=== PATIENT | male | born 1935 | race Caucasian/White ===

== ENCOUNTER 2017-02-05 09:48 | Inpatient (IN) | payer OTHER ==
[2017-02-05 10:04] VITALS: BMI 22.9
--- NOTE | 2017-02-05 11:00 | PDOC ---
History of Present Illness - General Chief Complaint: Injury Stated Complaint: FALL Time Seen by Provider: 02/05/17 10:09 - History of Present Illness Initial Comments: 02/05/17 11:19 CHIEF COMPLAINT: fall HISTORY OF PRESENT ILLNESS: 81-year-old male with hx of recurrent UTIs presents to ED s/p fall. Patient was seen in this ER yesterday for fall and discharged s /p Tdap administration and lac repair. Patient states that he was at home in his backyard and lost balance and fell against a brick wall and scraped his left arm. Patient denies any pain at this time, denies any change in vision, difficulty speaking or walking. Patient has no complaints. No recent travel or sick contacts. PAST MEDICAL HISTORY: Denies past medical history FAMILY HISTORY: Denies SOCIAL HISTORY: Lives at home alone. Current smoker, 1 pack daily. Denies alcohol, illicit drug use. SURGICAL HISTORY: Denies ALLERGIES: No known drug allergies REVIEW OF SYSTEMS General/Constitutional: Denies fever or chills. Denies weakness, weight change. HEENT: Denies change in vision. Denies ear pain or discharge. Denies sore throat. Cardiovascular: Denies chest pain or shortness of breath. Respiratory: Denies cough, wheezing, or hemoptysis. Gastrointestinal: Denies nausea, vomiting, diarrhea or constipation. Denies rectal bleeding. Genitourinary: Denies dysuria, frequency, or change in urination. Musculoskeletal: "I have cuts on my hands and arms." Denies joint or muscle swelling or pain. Denies neck or back pain. Skin and breasts: Denies rash or easy bruising. Neurologic: Denies headache, vertigo, loss of consciousness, or loss of sensation. PHYSICAL EXAM General Appearance: Well-appearing, appropriately dressed. No apparent distress. HEENT: EOMI, PERRLA, normal ENT inspection, normal voice, TMs normal, pharynx normal. No conjunctival pallor. No photophobia, scleral icterus. Neck: No midline tenderness to cervical spine. Supple. Trachea midline. No tenderness, rigidity, carotid bruit, stridor, lymphadenopathy, or thyromegaly. Respiratory/Chest: Lungs CTAB. Cardiovascular: RRR. S1, S2. Vascular Pulses: Dorsalis-Pedis (R): 2+, Dorsalis-Pedis (L): 2+ Gastrointestinal/Abdominal: Normal bowel sounds. Abdomen soft, non-distended. No tenderness or rebound tenderness. No organomegaly, pulsatile mass, guarding , hernia, hepatomegaly, splenomegaly. Lymphatic: No adenopathy, tenderness. Musculoskeletal/Extremities: Superficial skin avulsion and ecchymosis to L lateral elbow. Repaired lac to L 2nd digit, macerated lac to R 5th digit, covered with bandage. No midline tenderness to thoracic or lumbar spine. FROM of all extremities, normal capillary refill. No tenderness to extremities, pedal edema, swelling, erythema or deformity. Integumentary: Appropriate color, dry, warm. No cyanosis, erythema, jaundice or rash Neurologic: body hanger II-XII intact. Fully oriented, alert. Appropriate mood/affect. Motor strength 5/5. No appreciable EOM palsy, facial droop or sensory deficit. Past History - Past Medical History Allergies/Adverse Reactions: Allergies Allergy/AdvReac Type Severity Reaction Status Date / Time No Known Drug Allergies Allergy Verified 02/04/17 18:34 Home Medications: Ambulatory Orders Alprazolam [Xanax] 1 mg PO HS 02/05/15 Aspirin [Aspirin EC] 81 mg PO DAILY 02/05/15 Metoprolol Succinate [Toprol XL -] 100 mg PO DAILY 02/05/15 Ramipril 2.5 mg PO BID 02/05/15 Simvastatin 10 mg PO HS 02/05/15 Duloxetine HCl 20 mg PO DAILY 06/17/16 Anemia: No Asthma: No Cancer: No Cardiac Disorders: No CVA: No COPD: No CHF: No Dementia: No Diabetes: No GI Disorders: No Disorders: No HTN: Yes Hypercholesterolemia: Yes Liver Disease: No Suicide Attempt (Hx): No Seizures: No Thyroid Disease: No - Surgical History Abdominal Surgery: No Appendectomy: No Cardiac Surgery: No Cholecystectomy: No Lung Surgery: No Neurologic Surgery: No Orthopedic Surgery: No - Psycho/Social/Smoking Cessation Hx Anxiety: No Suicidal Ideation: No Smoking History: Current every day smoker Have you smoked in the past 12 months: Yes Number of Cigarettes Smoked Daily: 20 Information on smoking cessation initiated: No 'Breaking Loose' booklet given: 02/20/15 Hx Alcohol Use: No Drug/Substance Use Hx: No Substance Use Type: None Hx Substance Use Treatment: No *Physical Exam - Vital Signs Last Vital Signs Temp Pulse Resp BP Pulse Ox 97.9 F 64 20 146/91 100 02/05/17 10:01 02/05/17 10:01 02/05/17 10:01 02/05/17 10:01 02/05/17 10:01 ED Treatment Course - LABORATORY CBC & Chemistry Diagram: 02/05/17 11:15 02/05/17 11:15 - RADIOLOGY Radiology Studies Ordered: Category Date Time Status ELBOW-LEFT [RAD] Stat Radiology 02/05/17 10:38 Ordered FOREARM- LEFT [RAD] Stat Radiology 02/05/17 10:38 Ordered Medical Decision Making - Medical Decision Making 02/05/17 12:26 81-year-old male with hx of recurrent UTIs presents to ED s/p fall. -CBC, CMP, PT/INR -UA, Ucx -EKG, CXR Labs: UA: WBC 249 Trop 0.06 Creatinine 2.1 -Levaquin IVPB Per chart history, patient has hx of MDR UTI, susceptible to amikacin and Zosyn. Levaquin stopped. -Zosyn IVPB EKG - multifocal atrial rhythm Head CT: No evidence of acute intracranial hemorrhage, edema, midline shift, mass effect, or skull fracture. No CT evidence of acute territorial infarction. Cerebral atrophy with supratentorial chronic white matter microangiopathic ischemic changes. Dilated temporal horns associated with loss of medial temporal lobes, hippocampus. Clinically correlate history of Alzheimer's dementia. 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 02/05/17 13:07 Discussed case with PCP Kasie, who agrees to inpatient admission but admits to hospitalist. Patient has no clinical hx of Alzheimers. Per PCP will also consult cards, urology and neurology. *DC/Admit/Observation/Transfer Diagnosis at time of Disposition: Urinary tract infection Qualifiers: Urinary tract infection type: site unspecified Hematuria presence: without hematuria Qualified Code(s): N39.0 - Urinary tract infection, site not specified - Discharge Dispostion Admit: Yes - Referrals Referrals: Ranjit Ferro [Primary Care Provider] -
[2017-02-05 11:20] LABS: BASOPHIL 0.8 % (0-2.0); EOSINOPHIL 0.4 % (0-4.5); MCH 30.4 pg (25.7-33.7); MCHC 32.5 g/dl (32.0-35.9); MEAN CELL VOLUME 93.3 fl (80-96); MEAN PLT VOLUME 8.8 fl (7.5-11.1); NEUTROPHILS 66.5 % (42.8-82.8); PLATELET COUNT 171 K/MM3 (134-434); RDW 15.2 % (11.9-15.9); WHITE BLOOD COUNT 6.8 K/mm3 (4.0-10.0)
[2017-02-05 11:35] LABS: INR 0.97 (0.82-1.09); PROTHROMBIN TIME (PATIENT) 10.7 SEC (9.98-11.88)
[2017-02-05 11:43] LABS: URINE APPEARANCE SLCLOUDY; URINE BILIRUBIN NEGATIVE (NEGATIVE); URINE COLOR LTYELLOW; URINE GLUCOSE (UA) NEGATIVE (NEGATIVE); URINE KETONE NEGATIVE (NEGATIVE); URINE NITRITE NEGATIVE (NEGATIVE); URINE UROBILINOGEN NEGATIVE E.U./dl (0.2-1.0)
[2017-02-05 11:56] LABS: ALBUMIN 3.5 g/dl (3.4-5.0); BILIRUBIN,TOTAL 1.1 mg/dL (0.2-1.0); CALCIUM 8.7 mg/dL (8.5-10.1); COCKROFT - GAULT 31.14; CREATININE 2.1 mg/dL (0.7-1.3); TOT PROT 6.7 g/dl (6.4-8.2)
[2017-02-05 11:57] LABS: TROPONIN I 0.06 ng/ml (0.00-0.05)
[2017-02-05 12:02] LABS: URINE BLOOD 2+ (NEGATIVE); URINE LEUK ESTERASE 3+ (NEGATIVE); URINE PROTEIN 1+ (NEGATIVE)
[2017-02-05 12:06] LABS: URINE HYALINE CAST 1 /lpf; URINE RBC 16 /hpf (0-3); URINE WBC 249 /hpf (3-5)
[2017-02-05] MEDS ORDERED: LEVOFLOXACIN 500 MG IVPB 100 ML IVPB ONE ×2 (12:25→12:28)
[2017-02-05] MEDS ORDERED: PIPERACILLIN/TAZOB 3.375 GM/50 ML PRE-DOCKED IVPB ONE (12:51)
[2017-02-05] MEDS ORDERED: PIPERACILLIN/TAZOB 3.375 GM 50 ML IVPB ONE (13:18)
--- NOTE | 2017-02-05 15:02 | HP ---
CHIEF COMPLAINT:Fall PCP:Kasie HISTORY OF PRESENT ILLNESS: 81m WITH pmh OF htn hld ckd CAD Cr 2.1 at baseline presents to the hospital s/p fall. Patient was seen yesterday s/p fall after he tripped and fell had a laceration to the left arm was sutured and he was discharged. Today he comes back s/p fall again. patient states sometimes his legs give out and that is what happened this time. He also has a history of recurrent UTIs and last UCx showed pseudomonas which was resistant to everything except Zosyn and amikacin. Patient admitted for IV Abx and further work up of an abnormal EKG which is changed from EKG in 2016. He denies nausea vomiting fevers chills chest pain shortness of breath hematuria or dysuria. Patient was interviewed at bedside with his daughter present. She states he is currently being worked up by Dr. Mcleod of urology for some kind of bladder issue. Patient ambulates with a cane at home but does not ambulate much. ER course was notable for: (1)IV ABx (2)Head CT (3)EKG Recent Travel:Denies PAST MEDICAL HISTORY:as above anxiety/depression Social History: Smoking:Denies Alcohol:Denies Drugs: Denies Allergies No Known Drug Allergies Allergy (Verified 02/04/17 18:34) HOME MEDICATIONS: Home Medications Medication Instructions Recorded Alprazolam [Xanax] 1 mg PO HS 02/05/15 Aspirin [Aspirin EC] 81 mg PO DAILY 02/05/15 Metoprolol Succinate [Toprol XL -] 100 mg PO DAILY 02/05/15 Ramipril 2.5 mg PO BID 02/05/15 Simvastatin 10 mg PO HS 02/05/15 Duloxetine HCl 20 mg PO DAILY 06/17/16 REVIEW OF SYSTEMS CONSTITUTIONAL: Absent: fever, chills, diaphoresis, generalized weakness, malaise, loss of appetite, weight change HEENT: Absent: rhinorrhea, nasal congestion, throat pain, throat swelling, difficulty swallowing, mouth swelling, ear pain, eye pain, visual changes CARDIOVASCULAR: Absent: chest pain, syncope, palpitations, irregular heart rate, lightheadedness , peripheral edema RESPIRATORY: Absent: cough, shortness of breath, dyspnea with exertion, orthopnea, wheezing, stridor, hemoptysis GASTROINTESTINAL: Absent: abdominal pain, abdominal distension, nausea, vomiting, diarrhea, constipation, melena, hematochezia GENITOURINARY: Absent: dysuria, frequency, urgency, hesitancy, hematuria, flank pain, genital pain MUSCULOSKELETAL: Absent: myalgia, arthralgia, joint swelling, back pain, neck pain SKIN: Absent: rash, itching, pallor HEMATOLOGIC/IMMUNOLOGIC: Absent: easy bleeding, easy bruising, lymphadenopathy, frequent infections ENDOCRINE: Absent: unexplained weight gain, unexplained weight loss, heat intolerance, cold intolerance NEUROLOGIC: Absent: headache, focal weakness or paresthesias, dizziness, unsteady gait, seizure, mental status changes, bladder or bowel incontinence Present: History of multiple falls and muscle weakness at times. PSYCHIATRIC: Absent: depression, suicidal or homicidal ideation, hallucinations. Present: Anxiety PHYSICAL EXAMINATION Vital Signs - 24 hr 02/05/17 10:01 Temperature 97.9 F Pulse Rate 64 Respiratory 20 Rate Blood Pressure 146/91 O2 Sat by Pulse 100 Oximetry (%) GENERAL: Awake, alert, and fully oriented, in no acute distress. HEAD: Normal with no signs of trauma. EYES: Pupils equal, round and reactive to light, extraocular movements intact, sclera anicteric EARS, NOSE, THROAT: Moist mucous membranes. NECK: Normal range of motion, supple without JVD LUNGS: Breath sounds equal, clear to auscultation bilaterally. No wheezes, and no crackles. No accessory muscle use. HEART: Regular rate and rhythm, normal S1 and S2 without murmur ABDOMEN: Soft, nontender, not distended, normoactive bowel sounds, no guarding, no rebound MUSCULOSKELETAL: No CVA tenderness. UPPER EXTREMITIES: warm, well-perfused. No peripheral edema. Left arm wrapped s /p fall with laceration which is sutured LOWER EXTREMITIES: warm, well-perfused. No calf tenderness. No peripheral edema. NEUROLOGICAL: Cranial nerves II-XII intact. Normal speech. PSYCHIATRIC: Cooperative. Good eye contact. Appropriate mood and affect. SKIN: Warm, dry, normal turgor Laboratory Results - last 24 hr 02/05/17 02/05/17 02/05/17 11:15 11:15 11:15 WBC 6.8 D RBC 3.94 L Hgb 12.0 Hct 36.8 MCV 93.3 MCHC 32.5 RDW 15.2 Plt Count 171 MPV 8.8 Neutrophils % 66.5 Lymphocytes % 25.9 D Monocytes % 6.4 Eosinophils % 0.4 Basophils % 0.8 INR 0.97 Sodium 139 Potassium 4.6 Chloride 107 Carbon Dioxide 22 Anion Gap 10 BUN 26 H D Creatinine 2.1 H Creat Clearance w eGFR 30.39 Random Glucose 112 H D Calcium 8.7 Total Bilirubin 1.1 H D AST 24 D ALT 15 Alkaline Phosphatase 120 H D Creatine Kinase 334 H Creatine Kinase Index 0.5 CK-MB (CK-2) 1.720 CK-MB (CK-2) Rel Index Troponin I 0.06 H Total Protein 6.7 Albumin 3.5 Urine Color Urine Appearance Urine pH Ur Specific [place] Urine Protein Urine Glucose (UA) Urine Ketones Urine Blood Urine Nitrite Urine Bilirubin Urine Urobilinogen Ur Leukocyte Esterase Urine RBC Urine WBC Ur Epithelial Cells Hyaline Casts 02/05/17 02/05/17 11:15 11:30 WBC RBC Hgb Hct MCV MCHC RDW Plt Count MPV Neutrophils % Lymphocytes % Monocytes % Eosinophils % Basophils % INR Sodium Potassium Chloride Carbon Dioxide Anion Gap BUN Creatinine Creat Clearance w eGFR Random Glucose Calcium Total Bilirubin AST ALT Alkaline Phosphatase Creatine Kinase Creatine Kinase Index CK-MB (CK-2) CK-MB (CK-2) Rel Index Cancelled Troponin I Total Protein Albumin Urine Color Ltyellow Urine Appearance Slcloudy Urine pH 6.0 Ur Specific [place] 1.013 Urine Protein 1+ H Urine Glucose (UA) Negative Urine Ketones Negative Urine Blood 2+ H Urine Nitrite Negative Urine Bilirubin Negative Urine Urobilinogen Negative Ur Leukocyte Esterase 3+ H Urine RBC 16 Urine WBC 249 Ur Epithelial Cells Rare Hyaline Casts 1 EKG: sinus arrhythmia vs atrial arrhythmia changes from EKG in 06/2016 CT head: no acute pathology. age appropriate XR elbow and forearm. possible intrarticular body otherwise WNL ASSESSMENT/PLAN: 81M presents to the hospital s/p recurrent falls found to have a slightly elevated troponin and UTI. 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 patient was eating a [employer] bar check HbA1C CKD:no issues Cr 2.1 at baseline renally dose all meds Depression/anxiety: continue duloxetine hold xanax as patient has been having multiple falls FEN: no IVF No electrolyte issues low sodium diet PPx: SCDs/HSQ no GI PPx indicated PT consult case discussed with Dr. zaidi Visit type - Emergency Visit Emergency Visit: Yes Care time: The patient presented to the Emergency Department on the above date and was hospitalized for further evaluation of their emergent condition. - New Patient This patient is new to me today: Yes Date on this admission: 02/05/17 - Critical Care Critical Care patient: No
--- NOTE | 2017-02-05 15:26 | PN ---
Teaching Attending Note Name of Resident: Geoff Valenzuela ATTENDING PHYSICIAN STATEMENT I saw and evaluated the patient. I reviewed the resident's note and discussed the case with the resident. I agree with the resident's findings and plan as documented. Patient states that he tripped and fell and also his legs gave up . Also stated that he feels very sad that his 4 years ago and has not been the same ever since then. Vital Signs Temperature 98.2 F 02/05/17 14:51 Pulse Rate 72 02/05/17 14:51 Respiratory Rate 16 02/05/17 14:51 Blood Pressure 137/66 02/05/17 14:51 O2 Sat by Pulse Oximetry (%) 96 02/05/17 14:51 GENERAL: Awake, alert, and fully oriented, in no acute distress. HEAD: Normal with no signs of trauma. EYES: Pupils equal, round and reactive to light, extraocular movements intact, sclera anicteric EARS, NOSE, THROAT: Moist mucous membranes. NECK: Normal range of motion, supple without JVD LUNGS: Breath sounds equal, clear to auscultation bilaterally. No wheezes, and no crackles. No accessory muscle use. HEART: Regular rate and rhythm, normal S1 and S2 without murmur ABDOMEN: Soft, nontender, not distended, normoactive bowel sounds, no guarding, no rebound MUSCULOSKELETAL: No CVA tenderness. EXTREMITIES: warm, well-perfused. No peripheral edema. Left arm wrapped s/p fall with laceration which is sutured NEUROLOGICAL: Cranial nerves II-XII intact. Normal speech. PSYCHIATRIC: Cooperative. Good eye contact. Appropriate mood and affect. SKIN: Warm, dry, normal turgor CBCD WBC 6.8 K/mm3 (4.0-10.0) D 02/05/17 11:15 RBC 3.94 M/mm3 (4.00-5.60) L 02/05/17 11:15 Hgb 12.0 GM/dL (11.7-16.9) 02/05/17 11:15 Hct 36.8 % (35.4-49) 02/05/17 11:15 MCV 93.3 fl (80-96) 02/05/17 11:15 MCHC 32.5 g/dl (32.0-35.9) 02/05/17 11:15 RDW 15.2 % (11.9-15.9) 02/05/17 11:15 Plt Count 171 K/MM3 (134-434) 02/05/17 11:15 MPV 8.8 fl (7.5-11.1) 02/05/17 11:15 CMP Sodium 139 mmol/L (136-145) 02/05/17 11:15 Potassium 4.6 mmol/L (3.5-5.1) 02/05/17 11:15 Chloride 107 mmol/L (98-107) 02/05/17 11:15 Carbon Dioxide 22 mmol/L (21-32) 02/05/17 11:15 Anion Gap 10 (8-16) 02/05/17 11:15 BUN 26 mg/dL (7-18) H D 02/05/17 11:15 Creatinine 2.1 mg/dL (0.7-1.3) H 02/05/17 11:15 Creat Clearance w eGFR 30.39 (>60) 02/05/17 11:15 Random Glucose 112 mg/dL (74-106) H D 02/05/17 11:15 Calcium 8.7 mg/dL (8.5-10.1) 02/05/17 11:15 Total Bilirubin 1.1 mg/dL (0.2-1.0) H D 02/05/17 11:15 AST 24 U/L (15-37) D 02/05/17 11:15 ALT 15 U/L (12-78) 02/05/17 11:15 Alkaline Phosphatase 120 U/L (45-117) H D 02/05/17 11:15 Total Protein 6.7 g/dl (6.4-8.2) 02/05/17 11:15 Albumin 3.5 g/dl (3.4-5.0) 02/05/17 11:15 CARDIAC ENZYMES Creatine Kinase 334 IU/L (39-308) H 02/05/17 11:15 Troponin I 0.06 ng/ml (0.00-0.05) H 02/05/17 11:15 Current Medications Generic Name Dose Route Start Last Admin Trade Name Freq PRN Reason Stop Dose Admin Aspirin 81 mg 02/06/17 10:00 Ecotrin - PO DAILY [facility] Atorvastatin Calcium 10 mg 02/05/17 22:00 Lipitor - PO HS [facility] Duloxetine HCl 20 mg 02/06/17 10:00 Cymbalta - PO DAILY [facility] Heparin Sodium (Porcine) 5,000 unit 02/05/17 22:00 Heparin - SQ TID [facility] Piperacillin Sod/Tazobactam 50 mls @ 100 mls/hr 02/05/17 18:00 Sod 2.25 gm/ Dextrose IVPB Q8H-IV [facility] Protocol Metoprolol Succinate 100 mg 02/06/17 10:00 Toprol Xl - PO DAILY [facility] Ramipril 2.5 mg 02/05/17 22:00 Altace - PO BID [facility] Home Medications Medication Instructions Recorded Alprazolam [Xanax] 1 mg PO HS 02/05/15 Aspirin [Aspirin EC] 81 mg PO DAILY 02/05/15 Metoprolol Succinate [Toprol XL -] 100 mg PO DAILY 02/05/15 Ramipril 2.5 mg PO BID 02/05/15 Simvastatin 10 mg PO HS 02/05/15 Duloxetine HCl 20 mg PO DAILY 06/17/16 EKG: sinus arrhythmia vs atrial arrhythmia changes from EKG in 06/2016 CT head: no acute pathology. age appropriate XR elbow and forearm. possible intrarticular body otherwise WNL ASSESSMENT/PLAN: Patient is an 81yo male presents to the hospital s/p fall x2 and was found to have a slightly elevated troponin and acute UTI. # Fall x2 : mechanical fall vs muscle weakness , patient feels that his right leg is giving up on him. will get physical therapy consult # Acute Urinary tract infection with multiple drug resistance will wait for urinary culture ID consult appreciated , continue Zosyn IV , urology consult # CAD/troponinemia/atrial arrhythmia ;Cardiology consult ,on aspirin , Ce q6 x2 more sets ,continue statin # Hx of HLD: continue statin # Hyperglycemia on BMP: could be reactive to infection. patient was eating a [employer] bar ;check HbA1C # CKD:with baseline creatinine Cr 2.1, dose meds renally #Depression/anxiety: continue duloxetine ; Hold xanax due to multiple falls PPx:heparin sq
--- NOTE | 2017-02-05 15:28 | PN ---
Progress Note (short form) - Note Progress Note: ID Consult dictated 81 y/o male with PMH bladder ca, chronic pyuria and bladder colonization, admitted s/p falls x 2 Possible sepsis secondary to UTI Possible syncope Obtain cultures Empiric zosyn
--- NOTE | 2017-02-05 17:04 | CON.CARD ---
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 fall mechanical. no concern for syncope/presyncope denies prior h/o cardiac intervention, cad work up etc. He denies nausea vomiting fevers chills chest pain shortness of breath, rashes, headache, visual disturbances. + depression Denies orthopnea, pnd, le edema, palps, dizziness, h/o syncope, presyncope, transient neurologic sx's. PAST MEDICAL HISTORY/PSHx: per hpi Social History: + tobacco fam hx: denies cardiac hx ros: per hpi Ambulatory Orders Alprazolam [Xanax] 1 mg PO HS 02/05/15 Aspirin [Aspirin EC] 81 mg PO ASDIR 02/05/15 Metoprolol Succinate [Toprol XL -] 100 mg PO DAILY 02/05/15 Ramipril 5 mg PO DAILY 02/05/15 Simvastatin 10 mg PO HS 02/05/15 Duloxetine HCl 30 mg PO DAILY 06/17/16 Bicalutamide 50 mg PO DAILY 02/05/17 Current Medications Aspirin (Ecotrin -) 81 mg PO DAILY [facility] Atorvastatin Calcium (Lipitor -) 10 mg PO HS [facility] Duloxetine HCl (Cymbalta -) 20 mg PO DAILY [facility] Heparin Sodium (Porcine) (Heparin -) 5,000 unit SQ TID [facility] Piperacillin Sod/Tazobactam Sod (Zosyn 2.25gm Ivpb (Pre-Docked)) 50 mls @ 100 mls/hr IVPB Q8H-IV [facility] PRN Reason: Protocol Metoprolol Succinate (Toprol Xl -) 100 mg PO DAILY [facility] Ramipril (Altace -) 2.5 mg PO BID [facility] Vital Signs - 24 hr 02/05/17 02/05/17 02/05/17 10:01 14:00 14:51 Temperature 97.9 F 98.2 F 98.2 F Pulse Rate 64 70 Pulse Rate [ 72 Left Apical] Respiratory 20 18 16 Rate Blood Pressure 146/91 135/61 Blood Pressure 137/66 [Right Arm] O2 Sat by Pulse 100 96 96 Oximetry (%) 02/05/17 15:50 Temperature 97.7 F Pulse Rate 83 Pulse Rate [ Left Apical] Respiratory 20 Rate Blood Pressure 141/71 Blood Pressure [Right Arm] O2 Sat by Pulse Oximetry (%) Intake & Output 02/03/17 02/04/17 02/05/17 02/06/17 07:59 07:59 07:59 07:59 Weight 179 lb NAD, calm jvd flat, neck supple diminshed air movement, nl effort irregular rhythm, nl rate. no mrg + bs soft nt nd ext without e/c/c diminished dp/pt no jaundice, diaphoresis aaox3 CBC, BMP 02/05/17 11:15 02/05/17 11:15 Laboratory Tests 06/21/16 02/05/17 02/05/17 06:00 11:15 11:15 INR 0.97 Creatinine 1.8 H 2.1 H Total Bilirubin 1.1 H D AST 24 D ALT 15 Alkaline Phosphatase 120 H D Creatine Kinase 334 H Creatine Kinase Index 0.5 CK-MB (CK-2) 1.720 Troponin I 0.06 H Albumin 3.5 EKG: MAT with PVC. 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 wandering atrial pacemaker - hx of + tobacco, would evaluate patient for underlying pulmonary disease as outpatient. - no acute intervention needed. - electrolytes wnl. borderline intermediate troponin elevation - patient with Creatinine of 2.1. Doubt related to cad. no ischemic changes on ekg or anginal sx's. no further work up needed. HTN - controlled, con't same regimen HL - con't statin + tobacco - cessation counseling. mechanical fall - mgm't per pmd - currently no concern for syncope/presyncope
[2017-02-05] MEDS: PIPERACILLIN/TAZOB 2.25 GM 50 ML IVPB SCH (17:16)
[2017-02-05] MEDS: HEPARIN NA (PORCINE) 5,000 UNITS/ML 1ML VIAL SQ SCH (22:04)
[2017-02-05] MEDS: ATORVASTATIN CA 10 MG TABLET (FP) PO SCH (22:04)
[2017-02-05] MEDS: RAMIPRIL 2.5 MG CAPSULE (FP) PO SCH (22:04)
--- NOTE | 2017-02-06 00:38 | HOSP ---
Physical Examination Vital Signs: Vital Signs Temperature 98.6 F 02/05/17 18:33 Pulse Rate 82 02/05/17 18:33 Respiratory Rate 20 02/05/17 18:33 Blood Pressure 128/79 02/05/17 18:33 O2 Sat by Pulse Oximetry (%) 96 02/05/17 14:51 Hospitalist Encounter Assessment: Notified by nursing staff that patient had fell. Patient reports getting up to use the bathroom. He did not realize he had SCD's attached to his legs and tripped over them while getting up. He fell off the side of the bed onto his bottom, but was able to brace himself on the bed as he was going down. Definitively denies head trauma. Definitively denies chest pain, palpitations, headache, dizziness, visual changes or other aura symptoms preceding, during or following the event. Was able to get back into bed with minor assistance from nurse. He states that his right leg "always gives out on me" and that is why he fell. His previous falls this week were all for the same reason as well. Denies any current symptoms during my examination. Denies chest pain, SOB, dizziness, lethargy, palpitations, visual changes, or altered mental status. Vitals: T 98.6 HR 61 BP 134/75 O2 98% on room air PE: GEN AAOx3, at baseline mental status HEENT Atraumatic, EOMI, PERRLA, Moist membranes CVS RRR, S1S2 PULM CTA Bilaterally NEURO CN Intact, sensory intact bilateral upper & lower extremities, strength 5/ 5 bilateral upper & lower extremities MSK ROM intact in all 4 extremities, negative straight leg raise, able to fully flex & extend hip & knee joints without any pain or difficulty with ROM, A/P: Patient is currently resting comfortably in bed without any complaints of any pain. Fall was from a short distance and he was able to brace himself during it. Further imaging can be deferred as patient denies head trauma, has an uneventful physical exam and denies any current pain. Will follow patient overnight & report to day team in AM. PT eval for AM as well. Visit type - Emergency Visit Emergency Visit: Yes ED Registration Date: 02/05/17 Care time: The patient presented to the Emergency Department on the above date and was hospitalized for further evaluation of their emergent condition. - New Patient This patient is new to me today: Yes Date on this admission: 02/06/17 - Critical Care Critical Care patient: No
[2017-02-06] MEDS: PIPERACILLIN/TAZOB 2.25 GM 50 ML IVPB SCH ×3 (01:56→17:42)
[2017-02-06] MEDS: HEPARIN NA (PORCINE) 5,000 UNITS/ML 1ML VIAL SQ SCH ×3 (06:26→21:53)
--- NOTE | 2017-02-06 08:20 | PN ---
Physical Exam: SUBJECTIVE: Patient seen and examined Events noted no acute pathology . Patient feels very sad since his 4 yrs ago. Feels lonely, has 2 daughters that one lives close by who checks on him all the time. OBJECTIVE: Vital Signs Temperature 97.9 F 02/06/17 06:00 Pulse Rate 78 02/06/17 06:00 Respiratory Rate 20 02/06/17 06:00 Blood Pressure 139/77 02/06/17 06:00 O2 Sat by Pulse Oximetry (%) 98 02/05/17 21:00 GENERAL: Awake, alert, and fully oriented, in no acute distress. HEAD: Normal with no signs of trauma. EYES: Pupils equal, round and reactive to light, extraocular movements intact, sclera anicteric EARS, NOSE, THROAT: Moist mucous membranes. NECK: Normal range of motion, supple without JVD LUNGS: Breath sounds equal, clear to auscultation bilaterally. No wheezes, and no crackles. No accessory muscle use. HEART: Regular rate and rhythm, normal S1 and S2 without murmur ABDOMEN: Soft, nontender, not distended, normoactive bowel sounds, no guarding, no rebound MUSCULOSKELETAL: No CVA tenderness. EXTREMITIES: warm, well-perfused. No peripheral edema. Left arm wrapped s/p fall with laceration which is sutured NEUROLOGICAL: Cranial nerves II-XII intact. Normal speech. PSYCHIATRIC: Cooperative. Good eye contact. Appropriate mood and affect. SKIN: Warm, dry, normal turgor CBCD WBC 6.8 K/mm3 (4.0-10.0) D 02/05/17 11:15 RBC 3.94 M/mm3 (4.00-5.60) L 02/05/17 11:15 Hgb 12.0 GM/dL (11.7-16.9) 02/05/17 11:15 Hct 36.8 % (35.4-49) 02/05/17 11:15 MCV 93.3 fl (80-96) 02/05/17 11:15 MCHC 32.5 g/dl (32.0-35.9) 02/05/17 11:15 RDW 15.2 % (11.9-15.9) 02/05/17 11:15 Plt Count 171 K/MM3 (134-434) 02/05/17 11:15 MPV 8.8 fl (7.5-11.1) 02/05/17 11:15 CMP Sodium 139 mmol/L (136-145) 02/05/17 11:15 Potassium 4.6 mmol/L (3.5-5.1) 02/05/17 11:15 Chloride 107 mmol/L (98-107) 02/05/17 11:15 Carbon Dioxide 22 mmol/L (21-32) 02/05/17 11:15 Anion Gap 10 (8-16) 02/05/17 11:15 BUN 26 mg/dL (7-18) H D 02/05/17 11:15 Creatinine 2.1 mg/dL (0.7-1.3) H 02/05/17 11:15 Creat Clearance w eGFR 30.39 (>60) 02/05/17 11:15 Random Glucose 112 mg/dL (74-106) H D 02/05/17 11:15 Calcium 8.7 mg/dL (8.5-10.1) 02/05/17 11:15 Total Bilirubin 1.1 mg/dL (0.2-1.0) H D 02/05/17 11:15 AST 24 U/L (15-37) D 02/05/17 11:15 ALT 15 U/L (12-78) 02/05/17 11:15 Alkaline Phosphatase 120 U/L (45-117) H D 02/05/17 11:15 Total Protein 6.7 g/dl (6.4-8.2) 02/05/17 11:15 Albumin 3.5 g/dl (3.4-5.0) 02/05/17 11:15 CARDIAC ENZYMES Creatine Kinase 334 IU/L (39-308) H 02/05/17 11:15 Troponin I 0.06 ng/ml (0.00-0.05) H 02/05/17 17:00 Laboratory Results - last 24 hr 02/05/17 17:00 Troponin I 0.06 H Active Medications Generic Name Dose Route Start Last Admin Trade Name Freq PRN Reason Stop Dose Admin Aspirin 81 mg 02/06/17 10:00 Ecotrin - PO DAILY GEE Atorvastatin Calcium 10 mg 02/05/17 22:00 02/05/17 22:04 Lipitor - PO 10 mg HS GEE Administration Duloxetine HCl 20 mg 02/06/17 10:00 Cymbalta - PO DAILY [facility] Heparin Sodium (Porcine) 5,000 unit 02/05/17 22:00 02/06/17 06:26 Heparin - SQ 5,000 unit TID GEE Administration Piperacillin Sod/Tazobactam Sod 50 mls @ 100 mls/hr 02/05/17 18:00 02/06/17 01: 56 Zosyn 2.25gm Ivpb (Pre-Docked) IVPB 100 mls/hr Q8H-IV GEE Administration Protocol Metoprolol Succinate 100 mg 02/06/17 10:00 Toprol Xl - PO DAILY GEE Ramipril 2.5 mg 02/05/17 22:00 02/05/17 22:04 Altace - PO 2.5 mg BID GEE Administration Home Medications Medication Instructions Recorded Alprazolam [Xanax] 1 mg PO HS 02/05/15 Aspirin [Aspirin EC] 81 mg PO ASDIR 02/05/15 Metoprolol Succinate [Toprol XL -] 100 mg PO DAILY 02/05/15 Ramipril 5 mg PO DAILY 02/05/15 Simvastatin 10 mg PO HS 02/05/15 Duloxetine HCl 30 mg PO DAILY 06/17/16 Bicalutamide 50 mg PO DAILY 02/05/17 Laboratory Tests 02/05/17 02/05/17 02/06/17 11:15 17:00 08:15 BUN 22 H Creatinine 2.1 H Hemoglobin A1c % Troponin I 0.06 H 0.06 H 02/06/17 08:15 BUN Creatinine Hemoglobin A1c % 7.0 H Troponin I EKG: sinus arrhythmia vs atrial arrhythmia changes from EKG in 06/2016 CT head: no acute pathology. age appropriate XR elbow and forearm. possible intrarticular body otherwise WNL ASSESSMENT/PLAN: 81M presents to the hospital s/p recurrent falls found to have a slightly elevated troponin and UTI. # Fall x2 : mechanical fall vs muscle weakness , stated that his legs gave up on him when he was walking to the bathroom. # Acute Urinary tract infection, Positive UA , UCx pending , ID consult on Zosyn IV ,urology consult # CAD with mild elevation of troponin , no chest pain, no shortness of breath, atrial arrhythmia ;Cardiology consult ,on aspirin ,continue statin # Hx of HLD: continue statin # New onset DM with HgA1C of 7.0 will get endocrinology consult # CKD:with baseline creatinine Cr 2.1, dose meds renally #Depression/anxiety: continue duloxetine ; Hold xanax due to multiple falls PPx:heparin sq, No SCDs due to fall Visit type - Emergency Visit Emergency Visit: Yes ED Registration Date: 02/05/17 Care time: The patient presented to the Emergency Department on the above date and was hospitalized for further evaluation of their emergent condition. - New Patient This patient is new to me today: No - Critical Care Critical Care patient: No
[2017-02-06 08:34] LABS: MCH 30.7 pg (25.7-33.7); MCHC 32.9 g/dl (32.0-35.9); MEAN CELL VOLUME 93.2 fl (80-96); MEAN PLT VOLUME 8.5 fl (7.5-11.1); PLATELET COUNT 154 K/MM3 (134-434); RDW 15.1 % (11.9-15.9); WHITE BLOOD COUNT 5.7 K/mm3 (4.0-10.0)
[2017-02-06 08:57] LABS: ALBUMIN 3.2 g/dl (3.4-5.0); BILIRUBIN,TOTAL 1.2 mg/dL (0.2-1.0); CALCIUM 8.6 mg/dL (8.5-10.1); COCKROFT - GAULT 31.14; CREATININE 2.1 mg/dL (0.7-1.3); MAGNESIUM 2.3 mg/dL (1.8-2.4); PHOSPHOROUS 3.6 mg/dL (2.5-4.9); TOT PROT 6.3 g/dl (6.4-8.2)
[2017-02-06] MEDS: METOPROLOL SUCCINATE 100 MG TAB.SR.24H (FP) PO SCH (09:23)
[2017-02-06] MEDS: ASPIRIN COATED 81 MG TABLET.EC PO SCH (09:24)
[2017-02-06] MEDS: DULoxetine HCL 20 MG CAPSULE.DR (FP) PO SCH (09:24)
[2017-02-06] MEDS: RAMIPRIL 2.5 MG CAPSULE (FP) PO SCH ×2 (09:24→21:53)
--- NOTE | 2017-02-06 10:03 | PN ---
Progress Note (short form) - Note Progress Note: s: no cp sob palps dizzy; had another mechanical fall last night o: Vital Signs Period Temp Pulse Resp BP Sys/Trejo Pulse Ox Last 24 Hr 97.5 F-98.6 F 70-84 16-20 128-141/61-89 96-98 NAD, calm jvd flat, neck supple cta bl, nl effort irregular rhythm, nl rate. no mrg + bs soft nt nd ext without e/c/c no jaundice, diaphoresis aaox3 Current Medications Generic Name Dose Route Start Last Admin Trade Name Freq PRN Reason Stop Dose Admin Aspirin 81 mg 02/06/17 10:00 02/06/17 09:24 Ecotrin - PO 81 mg DAILY GEE Administration Atorvastatin Calcium 10 mg 02/05/17 22:00 02/05/17 22:04 Lipitor - PO 10 mg HS GEE Administration Duloxetine HCl 20 mg 02/06/17 10:00 02/06/17 09:24 Cymbalta - PO 20 mg DAILY GEE Administration Heparin Sodium (Porcine) 5,000 unit 02/05/17 22:00 02/06/17 06:26 Heparin - SQ 5,000 unit TID GEE Administration Piperacillin Sod/Tazobactam Sod 50 mls @ 100 mls/hr 02/05/17 18:00 02/06/17 09: 24 Zosyn 2.25gm Ivpb (Pre-Docked) IVPB 100 mls/hr Q8H-IV GEE Administration Protocol Metoprolol Succinate 100 mg 02/06/17 10:00 02/06/17 09:23 Toprol Xl - PO 100 mg DAILY GEE Administration Ramipril 2.5 mg 02/05/17 22:00 02/06/17 09:24 Altace - PO 2.5 mg BID GEE Administration CBC, BMP 02/06/17 08:15 02/06/17 08:15 EKG: MAT with PVC. 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 - no acute intervention needed. - electrolytes repletion prn borderline intermediate troponin elevation - patient with Creatinine of 2.1. Doubt related to cad. no ischemic changes on ekg or anginal sx's. no further work up needed at this time. HTN - controlled, con't same regimen HL - con't statin + tobacco - cessation counseling. mechanical fall - mgm't per pmd - currently no concern for syncope/presyncope uti: -cont abx per pmd
--- NOTE | 2017-02-06 11:16 | EKG ---
Test Reason : Blood Pressure : / mmHG Vent. Rate : 089 BPM Atrial Rate : 089 BPM P-R Int : 000 ms QRS Dur : 080 ms QT Int : 390 ms P-R-T Axes : 071 047 -14 degrees QTc Int : 474 ms SINUS RHYTHM WITH PREMATURE SUPRAVENTRICULAR COMPLEXES AND WITH OCCASIONAL PREMATURE VENTRICULAR COMPLEXES ABNORMAL ECG Confirmed by NU JAMES, FEMI ([id number]) on 02/06/2017 11:16:11 AM Referred By: Óscar AGGARWAL Confirmed By:FEMI JUDGE MD
--- NOTE | 2017-02-06 11:25 | EKG ---
Test Reason : Blood Pressure : / mmHG Vent. Rate : 064 BPM Atrial Rate : 072 BPM P-R Int : 000 ms QRS Dur : 074 ms QT Int : 430 ms P-R-T Axes : 000 055 032 degrees QTc Int : 443 ms SINUS RHYTHM PREMATURE ATRIAL COMPLEXES PREMATURE VENTRICULAR COMPLEXES Confirmed by FEMI JUDGE MD ([id number]) on 02/06/2017 11:25:00 AM Referred By: Confirmed By:FEMI JUDGE MD
--- NOTE | 2017-02-06 14:34 | PN ---
Progress Note, Physician History of Present Illness: Awake, alert No complaints Denies dysuria/ hematuria No suprapubic/ flank pain No fever/ chills - Current Medication List Current Medications: Active Medications Aspirin (Ecotrin -) 81 mg PO DAILY [facility] Last Admin: 02/06/17 09:24 Dose: 81 mg Atorvastatin Calcium (Lipitor -) 10 mg PO HS [facility] Last Admin: 02/05/17 22:04 Dose: 10 mg Duloxetine HCl (Cymbalta -) 20 mg PO DAILY [facility] Last Admin: 02/06/17 09:24 Dose: 20 mg Heparin Sodium (Porcine) (Heparin -) 5,000 unit SQ TID [facility] Last Admin: 02/06/17 13:37 Dose: 5,000 unit Piperacillin Sod/Tazobactam Sod (Zosyn 2.25gm Ivpb (Pre-Docked)) 50 mls @ 100 mls/hr IVPB Q8H-IV [facility] PRN Reason: Protocol Last Admin: 02/06/17 09:24 Dose: 100 mls/hr Metoprolol Succinate (Toprol Xl -) 100 mg PO DAILY [facility] Last Admin: 02/06/17 09:23 Dose: 100 mg Ramipril (Altace -) 2.5 mg PO BID [facility] Last Admin: 02/06/17 09:24 Dose: 2.5 mg - Objective Vital Signs: Vital Signs Temperature 97.5 F L 02/06/17 14:19 Pulse Rate 80 02/06/17 14:19 Respiratory Rate 20 02/06/17 14:19 Blood Pressure 129/72 02/06/17 14:19 O2 Sat by Pulse Oximetry (%) 98 02/06/17 09:00 Constitutional: Yes: No Distress Eyes: Yes: Conjunctiva Clear Cardiovascular: Yes: Regular Rate and Rhythm, S1, S2 Respiratory: Yes: CTA Bilaterally Gastrointestinal: Yes: Soft, Abdomen, Obese Edema: No Labs: CBC, BMP 02/06/17 08:15 02/06/17 08:15 INR, PTT INR 0.97 (0.82-1.09) 02/05/17 11:15 Assessment/Plan S/P Falls Possible sepsis secondary to UTI Bladder ca Metastatic prostate ca Await c/s Continue zosyn
--- NOTE | 2017-02-06 16:32 | CON.NEURO ---
Consult Consult Specialty:: Neurology Reason for Consultation:: "Dementia" - History of Present Illness Chief Complaint: "I fell" History of Present Illness: 81 y/o gentleman with hx. of htn hld ckd CAD Cr 2.1 at baseline presented to the hospital s/p fall yesterday. Patient was seen a day prior s/p fall after he tripped and fell had a laceration to the left arm was sutured and he was discharged. Yesterda he come back s/p fall again. patient states sometimes his legs give out and that is what happened this time. He also has a history of recurrent UTIs and last UCx showed pseudomonas which was resistant to everything except Zosyn and amikacin. Patient admitted for IV Abx and further work up of an abnormal EKG which is changed from EKG in 2016. He denies nausea vomiting fevers chills chest pain shortness of breath hematuria or dysuria. Patient was interviewed at bedside with his daughter present. She states he is currently being worked up by Dr. Mcleod of urology for some kind of bladder issue. Patient ambulates with a cane at home but does not ambulate much. He reports no symptoms preceeding the falls and there is no worsened confusion after falling, -head trauma. He admits to worsening memoryx 1 year, states he is able to do his house work, ambulates with a cane "because i feel unsteady". Denies numbness in feet. Denies urinary incontinence. - Past Medical History [employer]: Yes: Other (Fall) Cardio/Vascular: Yes: HTN, Hyperlipdemia Infectious Disease: Yes: Other (uti) Psych: Yes: Anxiety - Alcohol/Substance Use Hx Alcohol Use: No - Smoking History Smoking history: Current every day smoker Have you smoked in the past 12 months: Yes Aproximately how many cigarettes per day: 20 Home Medications - Allergies Allergies/Adverse Reactions: Allergies Allergy/AdvReac Type Severity Reaction Status Date / Time No Known Drug Allergies Allergy Verified 02/04/17 18:34 - Home Medications Home Medications: Ambulatory Orders Alprazolam [Xanax] 1 mg PO HS 02/05/15 Aspirin [Aspirin EC] 81 mg PO ASDIR 02/05/15 Metoprolol Succinate [Toprol XL -] 100 mg PO DAILY 02/05/15 Ramipril 5 mg PO DAILY 02/05/15 Simvastatin 10 mg PO HS 02/05/15 Duloxetine HCl 30 mg PO DAILY 06/17/16 Bicalutamide 50 mg PO DAILY 02/05/17 Review of Systems - Review of Systems Neurological: reports: Unsteady Gait Physical Exam-Neuro Vital Signs: Vital Signs Temperature 97.8 F 02/06/17 14:28 Pulse Rate 82 02/06/17 14:28 Respiratory Rate 20 02/06/17 14:28 Blood Pressure 99/70 02/06/17 14:28 O2 Sat by Pulse Oximetry (%) 98 02/06/17 09:00 Labs: CBC, BMP 02/06/17 08:15 02/06/17 08:15 INR, PTT INR 0.97 (0.82-1.09) 02/05/17 11:15 - Neuro Exam Level Of Consciousness: Yes: Alert, Oriented to Person, Oriented to Place, Oriented to Time Mini Mental Exam: Impaired digit span/serial 7's. He is able to recall 1/3 objects in 1 and 5 minutes. Insight-limited. Judgment intact. + impaired executive functioning. Cranial Nerves II-XII Intact: No (Stands with assistance, has difficulty propelling himself out of bed. Wide based, unsteady.) DTR's: 0 Left Achilles, 0 Right Achilles, 1+ Left Bicep, 1+ Right Bicep, 1+ Left Tricep, 1+ Right Tricep, 1+ Left Brachioradialis, 1+ Right Brachioradialis Motor Strength: 5/5: Left Arm, Right Arm, Left Leg, Right Leg Gait: Normal, Ataxia (Pt. has difficulty propelling himself out of bed. Stands with assistance, slightly wide based), Deferred, Other NIH Stroke Scale - Total Score NIH Stroke Scale Score: 0 Imaging - Results Cat Scan: Report Reviewed (Parenchymal volume loss with involutional changes, widened sylvian fissures. 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 Temporal horns of lateral vents. are dilated, loss of medial temporal horns, hippocampus.. Collection of CSF along right frontal convexity-arachnoid cyst.) Assessment/Plan Pt.with multiple falls, unsteady gait and marked atrophy on CT head. He has cognitive deficits- impaired memory, attention, concentration, execurive function difficulty and a slight old left central facial. Differential dx. inludes vascular dementia, normal pressure hydrocephalus(CT findings difficult to differentiate between NPH and hydrocephalus ex-vacuo i.e hydrocephalus due to atrophy). His ankle kerks are absent?? neuropathy. Suggest: 1) Vitamin B12/Folate levels 2) Will obtain corroborating information re: cognitive decline from patients family- he is unable to recall details and need to know his functional status 3) Would place on Donepezil 5mg daily and titrate up to 10mg daily after 7 days. 4) Will obtain neuropsychological testing as outpatient to differentiate between a cortical(AD) and subcortical(vascular, NPH) dementia 5) Rehab/gait training/PT.
[2017-02-06] MEDS: ATORVASTATIN CA 10 MG TABLET (FP) PO SCH (21:53)
[2017-02-07] MEDS: PIPERACILLIN/TAZOB 2.25 GM 50 ML IVPB SCH ×2 (02:37→10:25)
[2017-02-07] MEDS: HEPARIN NA (PORCINE) 5,000 UNITS/ML 1ML VIAL SQ SCH ×3 (06:00→21:11)
[2017-02-07] MEDS: ASPIRIN COATED 81 MG TABLET.EC PO SCH (10:25)
[2017-02-07] MEDS: METOPROLOL SUCCINATE 100 MG TAB.SR.24H (FP) PO SCH (10:25)
[2017-02-07] MEDS: RAMIPRIL 2.5 MG CAPSULE (FP) PO SCH ×2 (10:25→21:11)
[2017-02-07] MEDS: DULoxetine HCL 20 MG CAPSULE.DR (FP) PO SCH (10:26)
--- NOTE | 2017-02-07 11:10 | PN ---
Progress Note (short form) - Note Progress Note: s: no cp sob palps dizzy o: Vital Signs Period Temp Pulse Resp BP Sys/Trejo Pulse Ox Last 24 Hr 97.5 F-98.6 F 60-90 18-20 99-130/62-85 98 NAD, calm jvd flat, neck supple cta bl, nl effort irregular rhythm, nl rate. no mrg + bs soft nt nd ext without e/c/c no jaundice, diaphoresis aaox3 Current Medications Generic Name Dose Route Start Last Admin Trade Name Freq PRN Reason Stop Dose Admin Aspirin 81 mg 02/06/17 10:00 02/07/17 10:25 Ecotrin - PO 81 mg DAILY GEE Administration Atorvastatin Calcium 10 mg 02/05/17 22:00 02/06/17 21:53 Lipitor - PO 10 mg HS GEE Administration Duloxetine HCl 20 mg 02/06/17 10:00 02/07/17 10:26 Cymbalta - PO 20 mg DAILY GEE Administration Heparin Sodium (Porcine) 5,000 unit 02/05/17 22:00 02/07/17 06:00 Heparin - SQ 5,000 unit TID GEE Administration Piperacillin Sod/Tazobactam Sod 50 mls @ 100 mls/hr 02/05/17 18:00 02/07/17 10: 25 Zosyn 2.25gm Ivpb (Pre-Docked) IVPB 100 mls/hr Q8H-IV GEE Administration Protocol Metoprolol Succinate 100 mg 02/06/17 10:00 02/07/17 10:25 Toprol Xl - PO 100 mg DAILY GEE Administration Ramipril 2.5 mg 02/05/17 22:00 02/07/17 10:25 Altace - PO 2.5 mg BID GEE Administration CBC, BMP 02/06/17 08:15 02/06/17 08:15 EKG: MAT with PVC. 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 - no acute intervention needed. - electrolytes repletion prn borderline intermediate troponin elevation - patient with Creatinine of 2.1. Doubt related to cad. no ischemic changes on ekg or anginal sx's. no further work up needed at this time. HTN - controlled, con't same regimen HL - con't statin tobacco use: - cessation discussed mechanical fall - mgm't per pmd - currently no concern for syncope/presyncope uti: -cont abx per pmd
--- NOTE | 2017-02-07 13:44 | PN ---
Mental Health Exam - Mental Status Exam Alert and Oriented to: Time, Place, Person Cognitive Function: Grossly Intact Patient Appearance: Well Groomed Mood: Depressed, Withdrawn, Anxious (hopeless and helplessness. ) Affect: Appropriate, Labile (tearful during interview. ) Patient Behavior: Crying, Talkative, Appropriate, Cooperative Speech Pattern: Clear, Tangential Voice Loudness: Mildly Loud Thought Process: Intact Thought Disorder: Not Present Hallucinations: None Suicidal Ideation: Denies, Past (has had thoughts of hurting himself in the past , but no plan. ), No Plan Homicidal Ideation: None Insight/Judgement: Fair Sleep: Poorly (awake during the night and early am wakening. )
--- NOTE | 2017-02-07 13:45 | PN ---
Progress Note, Physician History of Present Illness: No complaints Denies dysuria/ hematuria No c/o fever/ chills Urine c/s again grew mixed organisms - Current Medication List Current Medications: Active Medications Aspirin (Ecotrin -) 81 mg PO DAILY [facility] Last Admin: 02/07/17 10:25 Dose: 81 mg Atorvastatin Calcium (Lipitor -) 10 mg PO HS [facility] Last Admin: 02/06/17 21:53 Dose: 10 mg Duloxetine HCl (Cymbalta -) 20 mg PO DAILY [facility] Last Admin: 02/07/17 10:26 Dose: 20 mg Heparin Sodium (Porcine) (Heparin -) 5,000 unit SQ TID [facility] Last Admin: 02/07/17 06:00 Dose: 5,000 unit Piperacillin Sod/Tazobactam Sod (Zosyn 2.25gm Ivpb (Pre-Docked)) 50 mls @ 100 mls/hr IVPB Q8H-IV [facility] PRN Reason: Protocol Last Admin: 02/07/17 10:25 Dose: 100 mls/hr Metoprolol Succinate (Toprol Xl -) 100 mg PO DAILY [facility] Last Admin: 02/07/17 10:25 Dose: 100 mg Ramipril (Altace -) 2.5 mg PO BID [facility] Last Admin: 02/07/17 10:25 Dose: 2.5 mg - Objective Vital Signs: Vital Signs Temperature 98 F 02/07/17 10:00 Pulse Rate 72 02/07/17 10:00 Respiratory Rate 18 02/07/17 10:00 Blood Pressure 168/100 02/07/17 10:00 O2 Sat by Pulse Oximetry (%) 98 02/06/17 21:00 Constitutional: Yes: No Distress Eyes: Yes: Conjunctiva Clear Cardiovascular: Yes: Regular Rate and Rhythm, S1, S2 Respiratory: Yes: CTA Bilaterally Gastrointestinal: Yes: Normal Bowel Sounds, Soft, Other (no suprapubic tenderness). No: Tenderness Labs: CBC, BMP 02/06/17 08:15 02/06/17 08:15 INR, PTT INR 0.97 (0.82-1.09) 02/05/17 11:15 Assessment/Plan S/P Falls Possible sepsis secondary to UTI Bladder ca Metastatic prostate ca Urine c/s c/w bladder colonization No evidence for systemic infection D/C antibiotics, observe off
--- NOTE | 2017-02-07 13:57 | PN ---
Progress Note, Physician Chief Complaint: "i miss my so much, its been 4 years now, she was my soulmate for over 51 years, sometimes i think is this living?" - Current Medication List Current Medications: Active Medications Aspirin (Ecotrin -) 81 mg PO DAILY [facility] Last Admin: 02/07/17 10:25 Dose: 81 mg Atorvastatin Calcium (Lipitor -) 10 mg PO HS [facility] Last Admin: 02/06/17 21:53 Dose: 10 mg Duloxetine HCl (Cymbalta -) 20 mg PO DAILY [facility] Last Admin: 02/07/17 10:26 Dose: 20 mg Heparin Sodium (Porcine) (Heparin -) 5,000 unit SQ TID [facility] Last Admin: 02/07/17 06:00 Dose: 5,000 unit Piperacillin Sod/Tazobactam Sod (Zosyn 2.25gm Ivpb (Pre-Docked)) 50 mls @ 100 mls/hr IVPB Q8H-IV [facility] PRN Reason: Protocol Last Admin: 02/07/17 10:25 Dose: 100 mls/hr Metoprolol Succinate (Toprol Xl -) 100 mg PO DAILY [facility] Last Admin: 02/07/17 10:25 Dose: 100 mg Ramipril (Altace -) 2.5 mg PO BID [facility] Last Admin: 02/07/17 10:25 Dose: 2.5 mg - Objective Vital Signs: Vital Signs Temperature 98 F 02/07/17 10:00 Pulse Rate 72 02/07/17 10:00 Respiratory Rate 18 02/07/17 10:00 Blood Pressure 168/100 02/07/17 10:00 O2 Sat by Pulse Oximetry (%) 97 02/07/17 10:00 Psychiatric: Yes: Other (in past has suicidal ideation but has not developed a plan, supportive daughters and grandchildren are protective factors.) Labs: CBC, BMP 02/06/17 08:15 02/06/17 08:15 INR, PTT INR 0.97 (0.82-1.09) 02/05/17 11:15 Assessment/Plan 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 Mr Titus is well related male SP recent fall in own driveway after feeling a "weakness in my leg". He has low self esteem, a lot of doubt on life review, but extremely private, wish to maintain independence. Suicidal ideation is fleeting without a plan, No delusional activity elicited. Denies hearing voices. Decreased appetite, early am wakening, tearful during interview, (but avoid benzodiazepines), still has interest in [employer]! Been taking Cybalta for over a year, Recommend increase dosage to 30 mg po qday that is safe in elderly. if no improvement after some weeks will switch to SSRI such as lexapro starting at 5mg as an alternative. Recommend social, group, reminiscence therapy to engage his abilities and improve socialization.
--- NOTE | 2017-02-07 15:09 | PN ---
Progress Note (short form) - Note Progress Note: Patient has no fever or chills, no shortness of breath, continues to feel weak Temperature 97.9 F 02/07/17 14:25 Pulse Rate 74 02/07/17 14:25 Respiratory Rate 20 02/07/17 14:25 Blood Pressure 155/99 02/07/17 14:25 O2 Sat by Pulse Oximetry (%) 97 02/07/17 10:00 GENERAL: Awake, alert, and fully oriented, in no acute distress. HEAD: Normal with no signs of trauma. EYES: Pupils equal, round and reactive to light, extraocular movements intact, sclera anicteric EARS, NOSE, THROAT: Moist mucous membranes. NECK: Normal range of motion, supple without JVD LUNGS: Breath sounds equal, clear to auscultation bilaterally. No wheezes, and no crackles. No accessory muscle use. HEART: Regular rate and rhythm, normal S1 and S2 , no s3 gallop ABDOMEN: Soft, nontender, not distended, normoactive bowel sounds, no guarding, no rebound MUSCULOSKELETAL: No CVA tenderness. EXTREMITIES: warm, well-perfused. No peripheral edema. Left arm wrapped s/p fall with laceration which is sutured NEUROLOGICAL: Cranial nerves II-XII intact. Normal speech. PSYCHIATRIC: Cooperative. Good eye contact. feels sad SKIN: Warm, dry, normal turgor CBCD WBC 5.7 K/mm3 (4.0-10.0) 02/06/17 08:15 RBC 3.90 M/mm3 (4.00-5.60) L 02/06/17 08:15 Hgb 12.0 GM/dL (11.7-16.9) 02/06/17 08:15 Hct 36.4 % (35.4-49) 02/06/17 08:15 MCV 93.2 fl (80-96) 02/06/17 08:15 MCHC 32.9 g/dl (32.0-35.9) 02/06/17 08:15 RDW 15.1 % (11.9-15.9) 02/06/17 08:15 Plt Count 154 K/MM3 (134-434) 02/06/17 08:15 MPV 8.5 fl (7.5-11.1) 02/06/17 08:15 CMP Sodium 141 mmol/L (136-145) 02/06/17 08:15 Potassium 4.2 mmol/L (3.5-5.1) 02/06/17 08:15 Chloride 108 mmol/L (98-107) H 02/06/17 08:15 Carbon Dioxide 25 mmol/L (21-32) 02/06/17 08:15 Anion Gap 8 (8-16) 02/06/17 08:15 BUN 22 mg/dL (7-18) H 02/06/17 08:15 Creatinine 2.1 mg/dL (0.7-1.3) H 02/06/17 08:15 Creat Clearance w eGFR 30.39 (>60) 02/06/17 08:15 Random Glucose 99 mg/dL (74-106) 02/06/17 08:15 Calcium 8.6 mg/dL (8.5-10.1) 02/06/17 08:15 Total Bilirubin 1.2 mg/dL (0.2-1.0) H 02/06/17 08:15 AST 19 U/L (15-37) D 02/06/17 08:15 ALT 13 U/L (12-78) 02/06/17 08:15 Alkaline Phosphatase 111 U/L (45-117) 02/06/17 08:15 Total Protein 6.3 g/dl (6.4-8.2) L 02/06/17 08:15 Albumin 3.2 g/dl (3.4-5.0) L 02/06/17 08:15 CARDIAC ENZYMES Creatine Kinase 334 IU/L (39-308) H 02/05/17 11:15 Troponin I 0.06 ng/ml (0.00-0.05) H 02/05/17 17:00 Current Medications Generic Name Dose Route Start Last Admin Trade Name Freq PRN Reason Stop Dose Admin Aspirin 81 mg 02/06/17 10:00 02/07/17 10:25 Ecotrin - PO 81 mg DAILY GEE Administration Atorvastatin Calcium 10 mg 02/05/17 22:00 02/06/17 21:53 Lipitor - PO 10 mg HS GEE Administration Duloxetine HCl 30 mg 02/08/17 10:00 Cymbalta - PO DAILY GEE Heparin Sodium (Porcine) 5,000 unit 02/05/17 22:00 02/07/17 14:42 Heparin - SQ 5,000 unit TID GEE Administration Metoprolol Succinate 100 mg 02/06/17 10:00 02/07/17 10:25 Toprol Xl - PO 100 mg DAILY GEE Administration Ramipril 2.5 mg 02/05/17 22:00 02/07/17 10:25 Altace - PO 2.5 mg BID GEE Administration Microbiology 02/05/17 11:30 Urine - Urine Clean Catch Urine Culture - Final Pseudomonas Aeruginosa Enterococcus Faecalis 02/05/17 17:10 Blood - Peripheral Venous Blood Culture - Preliminary NO GROWTH OBTAINED AFTER 24 HOURS, INCUBATION TO CONTINUE FOR 4 DAYS. 02/05/17 17:10 Blood - Peripheral Venous Blood Culture - Preliminary NO GROWTH OBTAINED AFTER 24 HOURS, INCUBATION TO CONTINUE FOR [address] scan of the brain c-. Findings. Serial axial images of the brain were obtained from foramen magnum to the cranial vertex without intravenous contrast. The study was supplemented with computer-generated coronal and sagittal reconstruction images. Laboratory Geneticist image was reviewed. There is no evidence of acute subarachnoid hemorrhage, acute intra-axial or extra-axial fluid collection consistent with subdural or epidural hematoma. No midline shift, acute territorial ischemic changes, herniation or edema is present. Normal cha matter white matter differentiation. Loss of volume of the brain parenchyma with involutional changes. Widened sylvian fissures. The lateral, third ventricles are dilated. Supratentorial chronic periventricular white matter microangiopathic ischemic changes. The temporal horns of lateral ventricles are dilated. Loss of the medial temporal lobes, hippocampus. Clinically correlate with history of Alzheimer dementia. Collection of the CSF along the right frontal convexity with remodeling of the inner table of the right frontal lobe, flattened sulci - arachnoid cyst. Examination of the bone windows show no fracture. The visualized paranasal sinuses and mastoid air cells are clear. Symmetrical ocular globes. Unremarkable retro-orbital soft tissues. Impression. No evidence of acute intracranial hemorrhage, edema, midline shift, mass effect , or skull fracture. No CT evidence of acute territorial infarction. Cerebral atrophy with supratentorial chronic white matter microangiopathic ischemic changes. Dilated temporal horns associated with loss of the medial temporal lobes, hippocampus. Clinically correlate history of Alzheimer dementia. 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 Renal and urinary bladder ultrasound Compared to prior renal ultrasound dated The right kidney measures 10.8 cm in sagittal length with multiple cysts the largest measuring 5.3 x 3.7 cm. Left kidney measures 10.4 x 5.3 cm with a few cysts the largest since midportion, anteriorly measuring 2.3 and 2.2 cm. There is evidence of bilateral renal sinus lipomatosis. No renal stones or hydronephrosis, bilaterally. Visualized portion of the liver is echogenic consistent with a fatty liver versus hepatocellular disease. Please correlate with liver enzymes. Moderately distended urinary bladder with a volume of 386 cc without wall thickening. Bilateral ureteral jets were identified. Prostate gland volume is 20 cc with a heterogeneous echotexture. Approximately 90 cc of postvoid urine residue is present. Impression: See discussion above Bilateral renal cysts without evidence of hydronephrosis or gross renal stones. CXR . Cardiomegaly. No evidence of pneumonia, atelectasis, pleural effusion, or pneumothorax. EKG: MAT with PVC. early r wave progression, no ischemic ekg changes ASSESSMENT/PLAN: 81M presents to the hospital s/p recurrent falls found to have a slightly elevated troponin and UTI. # Fall x2 : mechanical fall vs muscle weakness , stated that his legs gave up on him when he was walking to the bathroom. As per neuro evaluation: Pt.with multiple falls, unsteady gait and marked atrophy on CT head with cognitive deficits- impaired memory, attention, concentration, execurive function difficulty and a slight old left central facial. Differential dx. inludes vascular dementia, normal pressure hydrocephalus(CT findings difficult to differentiate between NPH and hydrocephalus ex-vacuo i.e hydrocephalus due to atrophy). His ankle kerks are absent?? neuropathy. # Acute Urinary tract infection, Positive UA , UCx Pseudomonas Aeruginosa; Enterococcus Faecalis ; as per ID possibility of colonization of the organism and will hold antibiotic and monitor off antibiotic. Discussed with ID . urology consult ; # CAD with mild elevation of troponin , no chest pain, no shortness of breath, atrial arrhythmia ;Cardiology consult ,on aspirin ,continue statin as per Dr. Kitchen , patient is with Creatinine of 2.1. ; Doubt related to cad. no ischemic changes on ekg or anginal sx's. no further work up needed at this time. 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 #Depression/anxiety: psych evaluated the patient today with suggestion to increase duloxetine 20mg to 30mg ; Hold xanax due to multiple falls PPx:heparin sq, No SCDs due to fall rehab recommended since patient feels weak to ambulate and his legs give up on him Rehab/gait training/PT. Visit type - Emergency Visit Emergency Visit: Yes ED Registration Date: 02/05/17 Care time: The patient presented to the Emergency Department on the above date and was hospitalized for further evaluation of their emergent condition. - New Patient This patient is new to me today: No - Critical Care Critical Care patient: No
[2017-02-07] MEDS: ACETAMINOPHEN 325 MG TABLET (FP) PO PRN (17:45)
[2017-02-07] MEDS ORDERED: ONDANSETRON 4 MG TABLET PO ONE (18:54)
--- NOTE | 2017-02-07 19:39 | CONSULT ---
Consult Consult Specialty:: Endocrinology Referred by:: Dr Peng Reason for Consultation:: New onset DM - History of Present Illness Chief Complaint: Fall History of Present Illness: This is an 81y/0 man with h/o HTN, HLD, CKD, CAD who presented to ED s/p fall. Patient was seen the previous day also s/p fall after he tripped and fell had a laceration to the left arm> The laceration was sutured and he was discharged. He also has h/o recurrent UTIs and last urine c/s showed pseudomonas which was resistant to everything except Zosyn and amikacin. Patient admitted for IV Abx and further work up of an abnormal EKG which is changed from EKG in 2016. Pt found to be diabetic with A1c of 7.0 and referred for management. Pt currently c/o nausea after lunch. Vomited once. No abd pain but had a loose BM as per pt. 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) Cardio/Vascular: Yes: HTN, Hyperlipdemia Infectious Disease: Yes: Other (uti) Psych: Yes: Anxiety - Alcohol/Substance Use Hx Alcohol Use: No - Smoking History Smoking history: Current every day smoker Have you smoked in the past 12 months: Yes Aproximately how many cigarettes per day: 20 Home Medications - Allergies Allergies/Adverse Reactions: Allergies Allergy/AdvReac Type Severity Reaction Status Date / Time No Known Drug Allergies Allergy Verified 02/04/17 18:34 - Home Medications Home Medications: Ambulatory Orders Alprazolam [Xanax] 1 mg PO HS 02/05/15 Aspirin [Aspirin EC] 81 mg PO ASDIR 02/05/15 Metoprolol Succinate [Toprol XL -] 100 mg PO DAILY 02/05/15 Ramipril 5 mg PO DAILY 02/05/15 Simvastatin 10 mg PO HS 02/05/15 Duloxetine HCl 30 mg PO DAILY 06/17/16 Bicalutamide 50 mg PO DAILY 02/05/17 Family Disease History - Family Disease History Family Disease History: Diabetes: Mother Review of Systems - Review of Systems Constitutional: reports: Malaise Eyes: reports: No Symptoms HENT: reports: No Symptoms Neck: reports: No Symptoms Cardiovascular: reports: No Symptoms Respiratory: reports: No Symptoms Gastrointestinal: reports: Nausea Genitourinary: reports: No Symptoms Musculoskeletal: reports: No Symptoms Neurological: reports: No Symptoms Endocrine: reports: No Symptoms Physical Exam Vital Signs: Vital Signs Temperature 98.1 F 02/07/17 18:43 Pulse Rate 70 02/07/17 18:43 Respiratory Rate 20 02/07/17 18:43 Blood Pressure 148/100 02/07/17 18:43 O2 Sat by Pulse Oximetry (%) 97 02/07/17 10:00 Constitutional: Yes: No Distress, Calm Eyes: Yes: Conjunctiva Clear, EOM Intact HENT: Yes: Atraumatic, Normocephalic Neck: Yes: Supple, Trachea Midline Cardiovascular: Yes: Regular Rate and Rhythm Respiratory: Yes: Regular, CTA Bilaterally Gastrointestinal: Yes: Normal Bowel Sounds, Soft Musculoskeletal: Yes: WNL Extremities: Yes: WNL Edema: No Neurological: Yes: Alert, Oriented Labs: CBC, BMP 02/06/17 08:15 02/06/17 08:15 Problem List - Problems (1) Urinary tract infection Code(s): N39.0 - URINARY TRACT INFECTION, SITE NOT SPECIFIED Qualifiers: Urinary tract infection type: site unspecified Hematuria presence: without hematuria Qualified Code(s): N39.0 - Urinary tract infection, site not specified (2) Hyperlipidemia Code(s): E78.5 - HYPERLIPIDEMIA, UNSPECIFIED (3) Hypertension Code(s): I10 - ESSENTIAL (PRIMARY) HYPERTENSION Assessment/Plan AP: DM: Diet discussed Nutrition consult BGM TID AC Novolog SS coverage Can't use Metformin b/o renal insufficiency so will start DPP4 if blood sugars worsen. Good chance the blood sugar will improve with diet control. Will f/u S/P Fall CKD HLD CAD
[2017-02-07] MEDS: ATORVASTATIN CA 10 MG TABLET (FP) PO SCH (21:11)
--- NOTE | 2017-02-08 00:47 | CONS ---
DATE OF CONSULTATION: 02/07/2017 HISTORY: Patient is an 81-year-old male with past medical history significant for high blood pressure, chronic kidney disease, coronary artery disease, and multiple falls. Patient states that his left leg gives out and he falls at times. He denies any palpitations or loss of consciousness. Patient also has a history of prostate cancer, treated with radiation seed implantation 15 years ago. He also received 2 years of total androgen ablation including Lupron and Casodex. 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 Has undergone multiple TUR bladder tumors and also has received several regiments of immunotherapy including intravesical VCG and was last scoped several months and no tumor was found. Patient has had a bout of depression since the of his in September and has been not eating properly and not taking care of his personal hygiene. Patient does have history of recurrent urinary tract infections. He has had positive cultures for pseudomonas in the past. Presently, he denies any nausea, vomiting, chills, palpitations. He denies any hematuria. He does have prostatism including nocturia, frequency, urgency, hesitancy, and terminal dribbling. He denies any recent travel. He denies any history of ethanolism or tobacco. He denies any allergies. He was taking baby aspirin every day. Patient is also on Toprol XL, Ramipril, simvastatin, and SSRI as well as Xanax. PHYSICAL EXAMINATION: General: Reveals a thin, middle-aged, gentleman in no apparent distress. Abdomen: Soft. Genitalia: Atraumatic. Testes are normal in size and consistency. Meatus is adequate. Phallus is circumcised. No hernias or hydroceles were elicited. Rectal: Prostate is 2+, firm, and nontender. Vital signs: His temperature was 97.9, blood pressure is 146/91. LABORATORY: The patient's white count is 6.8, hemoglobin is 12, hematocrit 36.8, platelet count was 171. The patient's INR is 0.97. BUN was 26, creatinine 2.1. Random glucose is 112. A urinalysis appeared to be cloudy. He had 2+ blood, negative nitrate, 3+ leukocyte esterase. There was a large amount of WBCs. His EKG revealed a sinus arrhythmia with atrial fibrillation. A CT of the head revealed no acute pathology. X-rays of his elbow and forearm revealed a possible intraarticular body fracture, otherwise within normal limits. IMPRESSION: The patient, at present, does have a heme-positive urine and possible urinary tract infection. There is no acute genitourinary pathology. I will recommend continuing with his Flomax. Await the results of his urine culture and obtain a renal and pelvic ultrasound to rule out upper tract pathology and residual urine. I will follow with you. AARTI ESTES M.D. [id number]
[2017-02-08] MEDS: HEPARIN NA (PORCINE) 5,000 UNITS/ML 1ML VIAL SQ SCH ×3 (05:49→21:38)
[2017-02-08] MEDS: INSULIN SLIDING SCALE (NOVOLOG) 1 VIAL SQ SCH ×2 (06:09→17:25)
[2017-02-08 07:41] LABS: BASOPHIL 0.5 % (0-2.0); EOSINOPHIL 0.3 % (0-4.5); MCH 30.9 pg (25.7-33.7); MEAN CELL VOLUME 93.8 fl (80-96); NEUTROPHILS 70.7 % (42.8-82.8); PLATELET COUNT 175 K/MM3 (134-434); RDW 15.5 % (11.9-15.9); WHITE BLOOD COUNT 6.3 K/mm3 (4.0-10.0)
[2017-02-08 07:59] LABS: ALBUMIN 3.4 g/dl (3.4-5.0); CALCIUM 8.7 mg/dL (8.5-10.1)
[2017-02-08 08:04] LABS: BILIRUBIN,TOTAL 0.9 mg/dL (0.2-1.0); COCKROFT - GAULT 34.42; CREATININE 1.9 mg/dL (0.7-1.3); TOT PROT 6.6 g/dl (6.4-8.2)
[2017-02-08] MEDS: ASPIRIN COATED 81 MG TABLET.EC PO SCH ×2 (09:24→12:35)
[2017-02-08] MEDS: RAMIPRIL 2.5 MG CAPSULE (FP) PO SCH ×3 (09:24→21:38)
[2017-02-08] MEDS: METOPROLOL SUCCINATE 100 MG TAB.SR.24H (FP) PO SCH ×2 (09:24→12:35)
[2017-02-08] MEDS: DULoxetine HCL 30 MG CAPSULE.DR (FP) PO SCH ×2 (09:24→12:35)
--- NOTE | 2017-02-08 10:33 | PN ---
Teaching Attending Note Name of Resident: Thanh Lopez ATTENDING PHYSICIAN STATEMENT I saw and evaluated the patient. I reviewed the resident's note and discussed the case with the resident. I agree with the resident's findings and plan as documented. SUBJECTIVE: He is complaining of nausea. He denies chest pain. He says that he "falls from time to time." He is amenable to short tern rehabilitation. OBJECTIVE: Vitals noted He is well appearing ASSESSMENT AND PLAN: Appreciate neuro consult B12 and Folate ordered and pending He will need further outpatient work-up of cognitive deficits and frequent falls Will begin Aricept Will pursue rehab placement Kathleenfran prn nausea Anticipate discharge to short term rehab tomorrow
--- NOTE | 2017-02-08 10:43 | PN ---
Progres Note Chief Complaint: CONSULT DICTATED. PT WITH H/O OF CAP, BLADDER CA WITH BCG - Objective Vital Signs: Vital Signs Temperature 97.7 F 02/08/17 09:18 Pulse Rate 75 02/08/17 09:18 Respiratory Rate 20 02/08/17 09:18 Blood Pressure 161/59 02/08/17 09:18 O2 Sat by Pulse Oximetry (%) 96 02/07/17 22:00 Labs/Additional Data: CBC, BMP 02/08/17 05:35 02/08/17 05:35 INR, PTT INR 0.97 (0.82-1.09) 02/05/17 11:15 Assessment/Plan WILL NEED CYSTO REPEAT BX OUTPT
[2017-02-08] MEDS: ONDANSETRON 4 MG/2 ML VIAL IVPUSH PRN ×2 (10:56→17:46)
--- NOTE | 2017-02-08 12:46 | PN ---
Progress Note (short form) - Note Progress Note: Feels better less nausea, no vomiting poor appetite, Didn't eat much of lunch Vital Signs Period Temp Pulse Resp BP Sys/Trejo Pulse Ox Last 24 Hr 97.7 F-98.4 F 70-82 18-20 134-161/59-100 96-97 PE: Awake, alert Neck: Supple, No JVD HEENT: PERRL, EOMI Lungs:CTA Abd: Benign Ext: No edema Neuro: No focal deficit CMP Sodium 141 mmol/L (136-145) 02/08/17 05:35 Potassium 4.4 mmol/L (3.5-5.1) 02/08/17 05:35 Chloride 106 mmol/L (98-107) 02/08/17 05:35 Carbon Dioxide 25 mmol/L (21-32) 02/08/17 05:35 Anion Gap 10 (8-16) 02/08/17 05:35 BUN 20 mg/dL (7-18) H 02/08/17 05:35 Creatinine 1.9 mg/dL (0.7-1.3) H 02/08/17 05:35 Creat Clearance w eGFR 34.11 (>60) 02/08/17 05:35 POC Glucometer 124 UNITS (()) 02/08/17 05:46 Random Glucose 124 mg/dL (74-106) H D 02/08/17 05:35 Hemoglobin A1c % 7.0 % (4.8-6.0) H 02/06/17 08:15 Calcium 8.7 mg/dL (8.5-10.1) 02/08/17 05:35 Phosphorus 3.6 mg/dL (2.5-4.9) 02/06/17 08:15 Magnesium 2.3 mg/dL (1.8-2.4) 02/06/17 08:15 Total Bilirubin 0.9 mg/dL (0.2-1.0) D 02/08/17 05:35 AST 16 U/L (15-37) 02/08/17 05:35 ALT 13 U/L (12-78) 02/08/17 05:35 Alkaline Phosphatase 107 U/L (45-117) 02/08/17 05:35 Creatine Kinase 334 IU/L (39-308) H 02/05/17 11:15 Creatine Kinase Index 0.5 % (0.0-5.0) 02/05/17 11:15 CK-MB (CK-2) 1.720 ng/ml (0.5-3.6) 02/05/17 11:15 CK-MB (CK-2) Rel Index Cancelled 02/05/17 11:15 Troponin I 0.06 ng/ml (0.00-0.05) H 02/05/17 17:00 Total Protein 6.6 g/dl (6.4-8.2) 02/08/17 05:35 Albumin 3.4 g/dl (3.4-5.0) 02/08/17 05:35 Vitamin B12 Cancelled 02/08/17 07:00 Serum Folate Cancelled 02/08/17 07:00 Current Medications Generic Name Dose Route Start Last Admin Trade Name Freq PRN Reason Stop Dose Admin Acetaminophen 650 mg 02/07/17 17:27 02/07/17 17:45 Tylenol - PO 650 mg Q6H PRN Administration FEVER OR PAIN Aspirin 81 mg 02/06/17 10:00 02/08/17 12:35 Ecotrin - PO 81 mg DAILY GEE Administration Atorvastatin Calcium 10 mg 02/05/17 22:00 02/07/17 21:11 Lipitor - PO 10 mg HS GEE Administration Duloxetine HCl 30 mg 02/08/17 10:00 02/08/17 12:35 Cymbalta - PO 30 mg DAILY GEE Administration Heparin Sodium (Porcine) 5,000 unit 02/05/17 22:00 02/08/17 05:49 Heparin - SQ 5,000 unit TID GEE Administration Insulin Aspart 1 vial 02/08/17 07:00 02/08/17 06:09 Novolog Vial Sliding Scale - SQ Not Given BID@0700,1630 [facility] Protocol Metoprolol Succinate 100 mg 02/06/17 10:00 02/08/17 12:35 Toprol Xl - PO 100 mg DAILY GEE Administration Ondansetron HCl 4 mg 02/08/17 10:17 02/08/17 10:56 Zofran Injection IVPUSH 4 mg Q6H PRN Administration NAUSEA AND/OR VOMITING Ramipril 2.5 mg 02/05/17 22:00 02/08/17 12:35 Altace - PO 2.5 mg BID GEE Administration AP: DM; New onset 1800 KCal Diabetic diet Nutrition consult. If blood sugar worsen will start DPP4 preferably Tradjenta 5 mg QD BGM BID Novolog SS HTN S/P Fall CAD HLD Problem List - Problems (1) Urinary tract infection Code(s): N39.0 - URINARY TRACT INFECTION, SITE NOT SPECIFIED Qualifiers: Urinary tract infection type: site unspecified Hematuria presence: without hematuria Qualified Code(s): N39.0 - Urinary tract infection, site not specified (2) Hyperlipidemia Code(s): E78.5 - HYPERLIPIDEMIA, UNSPECIFIED (3) Hypertension Code(s): I10 - ESSENTIAL (PRIMARY) HYPERTENSION
[2017-02-08] MEDS: DONEPEZIL HCL 5 MG TABLET (FP) PO SCH (14:39)
--- NOTE | 2017-02-08 14:52 | PN ---
Physical Exam: SUBJECTIVE: Patient seen and examined at bedside. No overnight events. Complaining of nausea. He is agreeable to short term rehab. Denies CP, WILSON, SOB, palpitations, or vomiting. OBJECTIVE: Vital Signs Period Temp Pulse Resp BP Sys/Trejo Pulse Ox Last 24 Hr 97.7 F-98.4 F 70-82 18-20 134-161/59-100 96-97 GENERAL: The patient is awake, alert, and fully oriented, in no acute distress. HEAD: Normal with no signs of trauma. EYES: PERRL, extraocular movements intact, sclera anicteric, conjunctiva clear. No ptosis. ENT: Ears normal, nares patent, moist mucous membranes. NECK: Trachea midline, full range of motion, supple. LUNGS: Breath sounds equal, clear to auscultation bilaterally, no wheezes, no crackles, no accessory muscle use. HEART: Regular rate and rhythm, S1, S2 without murmur, rub or gallop. ABDOMEN: Soft, nontender, nondistended, normoactive bowel sounds, no guarding, no rebound, no hepatosplenomegaly, no masses. EXTREMITIES: 2+ pulses, warm, well-perfused, no edema. bandaged wounds of left forearm and hand. NEUROLOGICAL: Cranial nerves II through XII grossly intact. Normal speech, gait not observed. Some cognitive decline noted. PSYCH: Normal mood, normal affect. SKIN: Warm, dry, normal turgor, no rashes or lesions noted Laboratory Results - last 24 hr 02/08/17 02/08/17 02/08/17 05:35 05:35 05:46 WBC 6.3 RBC 3.94 L Hgb 12.2 Hct 37.0 MCV 93.8 MCHC 33.0 RDW 15.5 Plt Count 175 MPV 9.0 Neutrophils % 70.7 Lymphocytes % 24.0 Monocytes % 4.5 Eosinophils % 0.3 Basophils % 0.5 Sodium 141 Potassium 4.4 Chloride 106 Carbon Dioxide 25 Anion Gap 10 BUN 20 H Creatinine 1.9 H Creat Clearance w eGFR 34.11 POC Glucometer 124 Random Glucose 124 H D Calcium 8.7 Total Bilirubin 0.9 D AST 16 ALT 13 Alkaline Phosphatase 107 Total Protein 6.6 Albumin 3.4 Vitamin B12 299 Serum Folate 16 02/08/17 07:00 WBC RBC Hgb Hct MCV MCHC RDW Plt Count MPV Neutrophils % Lymphocytes % Monocytes % Eosinophils % Basophils % Sodium Potassium Chloride Carbon Dioxide Anion Gap BUN Creatinine Creat Clearance w eGFR POC Glucometer Random Glucose Calcium Total Bilirubin AST ALT Alkaline Phosphatase Total Protein Albumin Vitamin B12 Cancelled Serum Folate Cancelled Active Medications Generic Name Dose Route Start Last Admin Trade Name Freq PRN Reason Stop Dose Admin Acetaminophen 650 mg 02/07/17 17:27 02/07/17 17:45 Tylenol - PO 650 mg Q6H PRN Administration FEVER OR PAIN Aspirin 81 mg 02/06/17 10:00 02/08/17 12:35 Ecotrin - PO 81 mg DAILY GEE Administration Atorvastatin Calcium 10 mg 02/05/17 22:00 02/07/17 21:11 Lipitor - PO 10 mg HS GEE Administration Donepezil HCl 5 mg 02/08/17 13:45 02/08/17 14:39 Aricept - PO 5 mg DAILY GEE Administration Duloxetine HCl 30 mg 02/08/17 10:00 02/08/17 12:35 Cymbalta - PO 30 mg DAILY GEE Administration Heparin Sodium (Porcine) 5,000 unit 02/05/17 22:00 02/08/17 14:40 Heparin - SQ 5,000 unit TID GEE Administration Insulin Aspart 1 vial 02/08/17 07:00 02/08/17 06:09 Novolog Vial Sliding Scale - SQ Not Given BID@0700,1630 [facility] Protocol Metoprolol Succinate 100 mg 02/06/17 10:00 02/08/17 12:35 Toprol Xl - PO 100 mg DAILY GEE Administration Ondansetron HCl 4 mg 02/08/17 10:17 02/08/17 10:56 Zofran Injection IVPUSH 4 mg Q6H PRN Administration NAUSEA AND/OR VOMITING Ramipril 2.5 mg 02/05/17 22:00 02/08/17 12:35 Altace - PO 2.5 mg BID GEE Administration ASSESSMENT/PLAN: 81 M presents to the hospital s/p recurrent falls admitted for elevated troponin and UTI. Problem List - Problems (1) Multiple falls Assessment/Plan: * Patient awaiting placement to short term rehab. * GIANFRANCO pending and then discussion of options as per discharge team. (2) Urinary tract infection Assessment/Plan: * Cultures grew Pseudomonas Aeruginosa; Enterococcus Faecalis * ID believes possibility of colonization of the organism and will hold antibiotic and monitor off antibiotic. * Urology consult Qualifiers: Urinary tract infection type: site unspecified Hematuria presence: without hematuria Qualified Code(s): N39.0 - Urinary tract infection, site not specified (3) DMII (diabetes mellitus, type 2) Assessment/Plan: * Endocrinology consult appreciated. * ADA diet * BGM BID * ISS ACHS * if glucose not well controlled consider GLP1 analog. (4) Hypertension Assessment/Plan: * Metoprolol Succinate (Toprol Xl -) 100 mg PO DAILY * Ramipril (Altace -) 2.5 mg PO BID (5) Hyperlipidemia Assessment/Plan: * continue Lipitor. (6) Laceration Assessment/Plan: * wound care. (7) Cognitive and behavioral changes Assessment/Plan: * Neuro consult appreciated. * Will start Donepezil 5mg PO daily * Will need f/u as outpt. Code(s): R41.89 - OTH SYMPTOMS AND SIGNS W COGNITIVE FUNCTIONS AND AWARENESS R46.89 - OTHER SYMPTOMS AND SIGNS INVOLVING APPEARANCE AND BEHAVIOR Visit type - Emergency Visit Emergency Visit: Yes ED Registration Date: 02/05/17 Care time: The patient presented to the Emergency Department on the above date and was hospitalized for further evaluation of their emergent condition. - New Patient This patient is new to me today: Yes Date on this admission: 02/08/17 - Critical Care Critical Care patient: No
--- NOTE | 2017-02-08 18:00 | PN ---
Progress Note (short form) - Note Progress Note: CC: fall s: no cp sob palps. + nausea since yesterday, + dizzy o: Current Medications Acetaminophen (Tylenol -) 650 mg PO Q6H PRN PRN Reason: FEVER OR PAIN Last Admin: 02/07/17 17:45 Dose: 650 mg Aspirin (Ecotrin -) 81 mg PO DAILY [facility] Last Admin: 02/08/17 12:35 Dose: 81 mg Atorvastatin Calcium (Lipitor -) 10 mg PO HS [facility] Last Admin: 02/07/17 21:11 Dose: 10 mg Donepezil HCl (Aricept -) 5 mg PO DAILY [facility] Last Admin: 02/08/17 14:39 Dose: 5 mg Duloxetine HCl (Cymbalta -) 30 mg PO DAILY [facility] Last Admin: 02/08/17 12:35 Dose: 30 mg Heparin Sodium (Porcine) (Heparin -) 5,000 unit SQ TID [facility] Last Admin: 02/08/17 14:40 Dose: 5,000 unit Insulin Aspart (Novolog Vial Sliding Scale -) 1 vial SQ BID@0700,1630 [facility] PRN Reason: Protocol Last Admin: 02/08/17 17:25 Dose: Not Given Metoprolol Succinate (Toprol Xl -) 100 mg PO DAILY [facility] Last Admin: 02/08/17 12:35 Dose: 100 mg Ondansetron HCl (Zofran Injection) 4 mg IVPUSH Q6H PRN PRN Reason: NAUSEA AND/OR VOMITING Last Admin: 02/08/17 17:46 Dose: 4 mg Ramipril (Altace -) 2.5 mg PO BID [facility] Last Admin: 02/08/17 12:35 Dose: 2.5 mg Vital Signs - 24 hr 02/07/17 02/07/17 02/08/17 18:43 22:00 04:00 Temperature 98.1 F 98.4 F 97.8 F Pulse Rate 70 79 82 Respiratory 20 18 18 Rate Blood Pressure 148/100 134/69 134/95 O2 Sat by Pulse 96 Oximetry (%) 02/08/17 02/08/17 02/08/17 09:18 11:00 12:05 Temperature 97.7 F Pulse Rate 75 74 Respiratory 20 20 Rate Blood Pressure 161/59 147/73 O2 Sat by Pulse 97 Oximetry (%) 02/08/17 14:00 Temperature 98.4 F Pulse Rate 79 Respiratory 20 Rate Blood Pressure 153/71 O2 Sat by Pulse Oximetry (%) Intake & Output 02/06/17 02/07/17 02/08/17 02/09/17 07:59 07:59 07:59 07:59 Intake Total 760 1235 1200 350 Output Total 100 700 250 Balance 760 1135 500 100 Weight 179 lb NAD, calm jvd flat, neck supple cta bl, nl effort irregular rhythm, nl rate. no mrg + bs soft nt nd ext without e/c/c no jaundice, diaphoresis aaox3 CBC, BMP 02/08/17 05:35 02/08/17 05:35 EKG: MAT with PVC. 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 - no acute intervention needed. - electrolytes repletion prn - currently with nausea and more irregular on exam than on admit. would repeat ekg. - given recent fall and frequent ectopy, can get echo here to r/o underlying structural disease now that available (unavailable over past weekend). borderline intermediate troponin elevation x 2 - patient with Creatinine of 2.1. Flat trend. Doubt related to cad. no ischemic changes on ekg or anginal sx's. no further work up needed at this time. HTN - controlled, con't same regimen HL - con't statin tobacco use: - cessation discussed mechanical fall - mgm't per pmd - currently no concern for syncope/presyncope - can consider event monitor as outpatient per outpatient cardiology follow up. uti: -cont abx per pmd
[2017-02-08] MEDS: ACETAMINOPHEN 325 MG TABLET (FP) PO PRN (18:51)
[2017-02-08] MEDS ORDERED: SODIUM CHLORIDE 500 ML IV STA (19:55)
[2017-02-08] MEDS ORDERED: ONDANSETRON 4 MG/2 ML VIAL IVPUSH PRN (20:34)
[2017-02-08] MEDS: ATORVASTATIN CA 10 MG TABLET (FP) PO SCH (21:38)
[2017-02-09] MEDS: INSULIN SLIDING SCALE (NOVOLOG) 1 VIAL SQ SCH (06:57)
[2017-02-09] MEDS: HEPARIN NA (PORCINE) 5,000 UNITS/ML 1ML VIAL SQ SCH ×2 (06:59→13:00)
--- NOTE | 2017-02-09 09:22 | PN ---
Teaching Attending Note Name of Resident: Geoff Valenzuela ATTENDING PHYSICIAN STATEMENT I saw and evaluated the patient. I reviewed the resident's note and discussed the case with the resident. I agree with the resident's findings and plan as documented. SUBJECTIVE: Patient is comfortable with no acute distress. feeling much better. No further abdominal distention , no constipation. OBJECTIVE: Vital Signs Temperature 97.5 F L 02/09/17 06:00 Pulse Rate 61 02/09/17 06:00 Respiratory Rate 20 02/09/17 06:00 Blood Pressure 132/55 02/09/17 06:00 O2 Sat by Pulse Oximetry (%) 98 02/08/17 21:00 CBCD WBC 6.3 K/mm3 (4.0-10.0) 02/08/17 05:35 RBC 3.94 M/mm3 (4.00-5.60) L 02/08/17 05:35 Hgb 12.2 GM/dL (11.7-16.9) 02/08/17 05:35 Hct 37.0 % (35.4-49) 02/08/17 05:35 MCV 93.8 fl (80-96) 02/08/17 05:35 MCHC 33.0 g/dl (32.0-35.9) 02/08/17 05:35 RDW 15.5 % (11.9-15.9) 02/08/17 05:35 Plt Count 175 K/MM3 (134-434) 02/08/17 05:35 MPV 9.0 fl (7.5-11.1) 02/08/17 05:35 CMP Sodium 141 mmol/L (136-145) 02/08/17 05:35 Potassium 4.4 mmol/L (3.5-5.1) 02/08/17 05:35 Chloride 106 mmol/L (98-107) 02/08/17 05:35 Carbon Dioxide 25 mmol/L (21-32) 02/08/17 05:35 Anion Gap 10 (8-16) 02/08/17 05:35 BUN 20 mg/dL (7-18) H 02/08/17 05:35 Creatinine 1.9 mg/dL (0.7-1.3) H 02/08/17 05:35 Creat Clearance w eGFR 34.11 (>60) 02/08/17 05:35 Random Glucose 124 mg/dL (74-106) H D 02/08/17 05:35 Calcium 8.7 mg/dL (8.5-10.1) 02/08/17 05:35 Total Bilirubin 0.9 mg/dL (0.2-1.0) D 02/08/17 05:35 AST 16 U/L (15-37) 02/08/17 05:35 ALT 13 U/L (12-78) 02/08/17 05:35 Alkaline Phosphatase 107 U/L (45-117) 02/08/17 05:35 Total Protein 6.6 g/dl (6.4-8.2) 02/08/17 05:35 Albumin 3.4 g/dl (3.4-5.0) 02/08/17 05:35 CARDIAC ENZYMES Creatine Kinase 334 IU/L (39-308) H 02/05/17 11:15 Troponin I 0.06 ng/ml (0.00-0.05) H 02/05/17 17:00 Current Medications Generic Name Dose Route Start Last Admin Trade Name Freq PRN Reason Stop Dose Admin Acetaminophen 650 mg 02/07/17 17:27 02/08/17 18:51 Tylenol - PO 650 mg Q6H PRN Administration FEVER OR PAIN Aspirin 81 mg 02/06/17 10:00 02/08/17 12:35 Ecotrin - PO 81 mg DAILY GEE Administration Atorvastatin Calcium 10 mg 02/05/17 22:00 02/08/17 21:38 Lipitor - PO 10 mg HS GEE Administration Donepezil HCl 5 mg 02/08/17 13:45 02/08/17 14:39 Aricept - PO 5 mg DAILY GEE Administration Duloxetine HCl 30 mg 02/08/17 10:00 02/08/17 12:35 Cymbalta - PO 30 mg DAILY GEE Administration Heparin Sodium (Porcine) 5,000 unit 02/05/17 22:00 02/09/17 06:59 Heparin - SQ 5,000 unit TID GEE Administration Insulin Aspart 1 vial 02/08/17 07:00 02/09/17 06:57 Novolog Vial Sliding Scale - SQ Not Given BID@0700,1630 [facility] Protocol Metoprolol Succinate 100 mg 02/06/17 10:00 02/08/17 12:35 Toprol Xl - PO 100 mg DAILY GEE Administration Ondansetron HCl 4 mg 02/08/17 20:34 02/08/17 21:38 Zofran Injection IVPUSH 4 mg Q4H PRN Administration NAUSEA AND/OR VOMITING Ramipril 2.5 mg 02/05/17 22:00 02/08/17 21:38 Altace - PO 2.5 mg BID GEE Administration Home Medications Medication Instructions Recorded Alprazolam [Xanax] 1 mg PO HS 02/05/15 Aspirin [Aspirin EC] 81 mg PO ASDIR 02/05/15 Metoprolol Succinate [Toprol XL -] 100 mg PO DAILY 02/05/15 Ramipril 5 mg PO DAILY 02/05/15 Simvastatin 10 mg PO HS 02/05/15 Duloxetine HCl 30 mg PO DAILY 06/17/16 Bicalutamide 50 mg PO DAILY 02/05/17 Laboratory Tests 02/05/17 02/05/17 02/06/17 11:15 17:00 08:15 BUN 22 H Creatinine 2.1 H Hemoglobin A1c % Troponin I 0.06 H 0.06 H Vitamin B12 Serum Folate 02/06/17 02/08/17 08:15 05:35 BUN Creatinine Hemoglobin A1c % 7.0 H Troponin I Vitamin B12 299 Serum Folate 16 ASSESSMENT AND PLAN: 81M presents to the hospital s/p recurrent falls found to have a slightly elevated troponin and UTI. # Fall x2 : mechanical fall vs muscle weakness # Acute Urinary tract infection, Positive UA , UCx Pseudomonas Aeruginosa; Enterococcus Faecalis ; as per ID possibility of colonization of the organism and will hold antibiotic and monitor off antibiotic. # CAD with mild elevation of troponin , no chest pain, no shortness of breath, atrial arrhythmia ;Cardiology consult ,on aspirin ,continue statin as per Dr. Kitchen , patient is with Creatinine of 2.1. ; Doubt related to cad. no ischemic changes on ekg or anginal sx's. no further work up needed at this time. 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 #Depression/anxiety: psych evaluated the patient today with suggestion to increase duloxetine 20mg to 30mg ; Hold xanax due to multiple falls PPx:heparin sq, No SCDs due to fall rehab recommended since patient feels weak to ambulate and his legs give up on him Rehab/gait training/PT. will need further outpatient work-up of cognitive deficits and frequent falls Will begin Aricept; going to rehab further detail per resident note
[2017-02-09] MEDS ORDERED: PT OWN MED DRAWER 7, Y5N ONE (11:06)
[2017-02-09] MEDS: ASPIRIN COATED 81 MG TABLET.EC PO SCH (11:07)
[2017-02-09] MEDS: METOPROLOL SUCCINATE 100 MG TAB.SR.24H (FP) PO SCH (11:08)
[2017-02-09] MEDS: DONEPEZIL HCL 5 MG TABLET (FP) PO SCH (11:08)
[2017-02-09] MEDS: RAMIPRIL 2.5 MG CAPSULE (FP) PO SCH (11:08)
[2017-02-09] MEDS: DULoxetine HCL 30 MG CAPSULE.DR (FP) PO SCH (11:08)
--- NOTE | 2017-02-09 11:12 | DS ---
Physical Exam: SUBJECTIVE: Patient seen and examined at bedside OBJECTIVE: Vital Signs Period Temp Pulse Resp BP Sys/Trejo Pulse Ox Last 24 Hr 97.5 F-98.4 F 61-79 20-20 132-154/55-91 98 PHYSICAL EXAM GENERAL: The patient is awake, alert, and fully oriented, in no acute distress. HEAD: Normal with no signs of trauma. EYES: PERRL, extraocular movements intact, sclera anicteric, conjunctiva clear. No ptosis. ENT: Ears normal, nares patent, moist mucous membranes. NECK: Trachea midline, full range of motion, supple. LUNGS: Breath sounds equal, clear to auscultation bilaterally, no wheezes, no crackles, no accessory muscle use. HEART: Regular rate and rhythm, S1, S2 without murmur, rub or gallop. ABDOMEN: Soft, nontender, nondistended, normoactive bowel sounds, no guarding, no rebound, no hepatosplenomegaly, no masses. EXTREMITIES: 2+ pulses, warm, well-perfused, no edema. bandaged wounds of left forearm and hand. NEUROLOGICAL: Cranial nerves II through XII grossly intact. Normal speech, gait not observed. Some cognitive decline noted. PSYCH: Normal mood, normal affect. SKIN: Warm, dry, normal turgor, no rashes or lesions noted LABS Laboratory Results - last 24 hr 02/08/17 02/08/17 02/09/17 17:02 20:09 06:56 POC Glucometer 152 159 134 HOSPITAL COURSE: Date of Admission:02/05/17 Date of Discharge: 02/09/17 81M admnitted s/p fall x2 also noted to have UTI. History of ESBL. Started on IV ABx. Seen by neurology for cognitive decline started on aricept. Seen by urology and will follow up as outpatient for cystoscopy and biopsy. Patient also seen by ID and ABx stopped as ID thought he was colonized and he did well off ABx. Patient seen by PT and determined he was not safe to go home given history of multiple falls. also seen by cardiology for wandering pacer will follow up as outpatient. stable for discharge to SNF. Minutes to complete discharge: 50 Discharge Summary Reason For Visit: URINARY TRACT INFECTION Current Active Problems Abrasion (Acute) Cognitive and behavioral changes (Acute) DMII (diabetes mellitus, type 2) (Acute) Laceration (Acute) Multiple falls (Acute) Urinary retention (Acute) Hyperlipidemia (Chronic) Urinary tract infection (Chronic) Condition: Stable - Instructions Diet, Activity, Other Instructions: you have diabetes now eat a low sodium low sugar low carbohydrate diet follow up with all the doctors i have given you in the discharge paperowkr including your primary care doctor if you have the same symptoms again call your doctor or go to the closest emergency room you need rehab to get stronger it was a pleasure taking care of you good luck Referrals: Ranjit Ferro [Primary Care Provider] - 1 Week Gigi Givens DO [Staff Physician] - 2 Weeks Steve Mcleod MD [Staff Physician] - 2 Weeks Lukas Schreiber MD [Staff Physician] - 2 Weeks - Home Medications Comprehensive Discharge Medication List: Ambulatory Orders Aspirin [Aspirin EC] 81 mg PO ASDIR 02/05/15 Metoprolol Succinate [Toprol XL -] 100 mg PO DAILY 02/05/15 Ramipril 5 mg PO DAILY 02/05/15 Simvastatin 10 mg PO HS 02/05/15 Duloxetine HCl 30 mg PO DAILY 06/17/16 Bicalutamide 50 mg PO DAILY 02/05/17 Donepezil HCl [Aricept -] 5 mg PO DAILY #5 tablet 02/09/17 Donepezil HCl [Aricept -] 10 mg PO DAILY #30 tablet 02/09/17 This patient is new to me today: No Emergency Visit: Yes ED Registration Date: 02/05/17 Care time: The patient presented to the Emergency Department on the above date and was hospitalized for further evaluation of their emergent condition. Critical Care patient: No - Discharge Referral Referred to [facility] Med P.C.: No
[2017-02-09 13:31] VITALS: BP 140/84; PULSE 64; TEMP 97.2
--- NOTE | 2017-02-09 22:56 | EKG ---
Test Reason : Blood Pressure : / mmHG Vent. Rate : 069 BPM Atrial Rate : 081 BPM P-R Int : 000 ms QRS Dur : 082 ms QT Int : 454 ms P-R-T Axes : 071 047 019 degrees QTc Int : 486 ms SINUS RHYTHM WITH OCCASIONAL PREMATURE VENTRICULAR COMPLEXES AND PREMATURE ATRIAL COMPLEXES INCREASED R/S RATIO IN V1, CONSIDER EARLY TRANSITION OR POSTERIOR INFARCT ABNORMAL ECG WHEN COMPARED WITH ECG OF 06-FEB-2017 09:29, NO SIGNIFICANT CHANGE WAS FOUND Confirmed by RYLEE ROSARIO MD ([id number]) on 02/09/2017 10:56:07 PM Referred By: Confirmed By:RYLEE ROSARIO MD
== END 2017-02-09 13:44 | DRG 690 ==
LOC: JER 09:48 → JERBED 13:29 → J5S 15:54
PROVIDERS: ADMIT Internal Medicine; ATTEND Internal Medicine
DX: N39.0 Urinary tract infection, site not specified (principal); E11.40 Type 2 diabetes mellitus with diabetic neuropathy, unspecified; B96.5 Pseudomonas (aeruginosa) (mallei) (pseudomallei) as the cause of diseases classified elsewhere; I25.10 Atherosclerotic heart disease of native coronary artery without angina pectoris; E78.5 Hyperlipidemia, unspecified; I12.9 Hypertensive chronic kidney disease with stage 1 through stage 4 chronic kidney disease, or unspecified chronic kidney disease; N18.9 Chronic kidney disease, unspecified; F41.8 Other specified anxiety disorders; M62.81 Muscle weakness (generalized); I49.9 Cardiac arrhythmia, unspecified; F17.210 Nicotine dependence, cigarettes, uncomplicated; R29.6 Repeated falls; R26.81 Unsteadiness on feet; S41.112D Laceration without foreign body of left upper arm, subsequent encounter; R41.89 Other symptoms and signs involving cognitive functions and awareness; N28.1 Cyst of kidney, acquired; C67.9 Malignant neoplasm of bladder, unspecified; W18.30XD Fall on same level, unspecified, subsequent encounter; Y92.098 Other place in other non-institutional residence as the place of occurrence of the external cause; Z85.46 Personal history of malignant neoplasm of prostate
CPT/HCPCS: 36415; 70450-TC; 71010-TC; 73070-TC-LT; 73090-TC-LT; 73140-TC-LT; 73140-TC-RT; 76775-TC; 76856-TC; 80053; 81003; 81015; 82550; 82553; 82607; 82746; 83036; 83735; 84100; 84484; 85025; 85027; 85610; 87040; 87086; 87186; 90715; 93005; 93010; 93306-TC; 99281-25; 99282-25; J1644

== ENCOUNTER 2017-10-07 21:24 | Inpatient (IN) | payer OTHER ==
[2017-10-07] MEDS ORDERED: DEXTROSE 5%-0.45% SALINE 1,000 ML IV SCH (22:45)
--- NOTE | 2017-10-07 23:03 | PDOC ---
History of Present Illness - General Chief Complaint: Injury Stated Complaint: FALL Time Seen by Provider: 10/07/17 21:46 Exam Limitations: No Limitations - History of Present Illness Initial Comments: 10/07/17 22:38 82M with pmh of BPH associated with recurrent UTI and major depressive disorder presents ~5days s/p fall by his daughter for reportedly not having eaten anything since then. Patient states that he's been depressed since his 4 years ago and "food is not doing anything for [him] anymore". Patient admits he thinks that life isn't worth living anymore although hasn't formed a plan or has attempted to take his own life. Anhedonic. Injured his left elbow in the fall. questionable head injury no loc. Denies headache, chest pain, dyspnea, dizziness, nausea, vomiting. history of PAC/PVC's. 10/07/17 23:13 10/07/17 23:32 10/07/17 23:34 Past History - Past Medical History Allergies/Adverse Reactions: Allergies Allergy/AdvReac Type Severity Reaction Status Date / Time No Known Drug Allergies Allergy Verified 10/07/17 21:39 Home Medications: Ambulatory Orders Aspirin [Aspirin EC] 81 mg PO ASDIR 02/05/15 Metoprolol Succinate [Toprol XL -] 100 mg PO DAILY 02/05/15 Simvastatin 10 mg PO HS 02/05/15 Bicalutamide 50 mg PO DAILY 02/05/17 Sulfacetamide Sodium 10% [Bleph-10] 2 drop QID #1 bottle 08/13/17 Citalopram Hydrobromide [Citalopram HBr] 10 mg PO HS 10/07/17 Anemia: No Asthma: No Cancer: No Cardiac Disorders: No CVA: No COPD: No CHF: No Dementia: No Diabetes: No GI Disorders: No Disorders: No HTN: Yes Hypercholesterolemia: Yes Liver Disease: No Seizures: No Thyroid Disease: No - Surgical History Abdominal Surgery: No Appendectomy: No Cardiac Surgery: No Cholecystectomy: No Lung Surgery: No Neurologic Surgery: No Orthopedic Surgery: No - Suicide/Smoking/Psychosocial Hx Smoking History: Unknown if ever smoked Have you smoked in the past 12 months: No Number of Cigarettes Smoked Daily: 20 Information on smoking cessation initiated: No 'Breaking Loose' booklet given: 02/20/15 Hx Alcohol Use: No Drug/Substance Use Hx: No Substance Use Type: None Hx Substance Use Treatment: No Review of Systems - Review of Systems Able to Perform ROS?: Yes Is the patient limited Algerian proficient: No Constitutional: No: Symptoms Reported HEENTM: No: Symptoms Reported Respiratory: No: Symptoms reported Cardiac (ROS): No: Symptoms Reported ABD/GI: No: Symptoms Reported : No: Burning, Discharge, Hematuria, Incontinence, Pain Musculoskeletal: No: Symptoms Reported Integumentary: No: Symptoms Reported Neurological: No: Symptoms reported Psychiatric: Yes: Depression, Sleep Pattern Change, Emotional Problems, Change in Appetite All Other Systems: Reviewed and Negative *Physical Exam - Vital Signs Last Vital Signs Temp Pulse Resp BP Pulse Ox 98.7 F 83 18 100/80 96 10/07/17 21:39 10/07/17 21:39 10/07/17 21:39 10/07/17 21:39 10/07/17 21:39 - Physical Exam General Appearance: Yes: Disheveled, Thin, Other (depressed affect). No: Nourished HEENT: positive: EOMI, MICHAELA, Normal ENT Inspection, Other (dry mucosa) Neck: negative: Tender Respiratory/Chest: positive: Lungs Clear, Normal Breath Sounds. negative: Chest Tender, Respiratory Distress Cardiovascular: positive: Regular Rhythm, Regular Rate, S1, S2 Vascular Pulses: Dorsalis-Pedis (R): 1+, Doralis-Pedis (L): 1+ Gastrointestinal/Abdominal: positive: Flat, Soft, Decreased BS. negative: Tender Musculoskeletal: positive: Normal Inspection, Other (normal left elbow range of motion, nontender) Extremity: positive: Normal Capillary Refill, Normal Inspection, Normal Range of Motion. negative: Coldness, Cyanosis Integumentary: positive: Dry, Warm, Pale, Ecchymosis, Bruising (left elbow). negative: Cyanotic, Cold, Clammy, Diaphoresis Neurologic: positive: circus trainer II-XII NML intact, Fully Oriented (time, person and place.), Alert. negative: Normal Mood/Affect (depressed affect/mood), Confused , Disoriented ED Treatment Course - LABORATORY CBC & Chemistry Diagram: 10/07/17 22:43 10/07/17 22:43 Medical Decision Making - Medical Decision Making 10/07/17 23:24 82m with h/o recurrent uti and depression presents with failure to thrive From history patient fit criteria for major depressive disorders. Investigating possible source of fall infectious vs mechanical vs metabolic vs neurological Head ct pending. EKG pending: Sinus arrthmia with pac/pvc's cbc. cmp, ua, septic protocol due to hx of recurrent UTIpre's CXR negative for acute illness. 10/07/17 23:32 Patient pre-renal kidney injury from dehydration. Lactic acid 2.4. D5 1/2 500mL and 500mL NS Troponins likely from heart strain. 10/08/17 00:03 Microblogged hospitalist Admitted to Med/Surg after talking to to Dr. Kumari in the Ed. 10/08/17 00:14 *DC/Admit/Observation/Transfer Diagnosis at time of Disposition: Failure to thrive in adult - Discharge Dispostion Condition at time of disposition: Stable Admit: Yes - Referrals - Patient Instructions - Post Discharge Activity
[2017-10-07 23:14] LABS: INR 0.94 (0.82-1.09); PROTHROMBIN TIME (PATIENT) 10.6 SEC (9.98-11.88)
[2017-10-07 23:19] LABS: ALBUMIN 3.5 g/dl (3.4-5.0); ANION GAP 14 (8-16); BASO % 0.3 % (0-2.0); BILIRUBIN,TOTAL 1.3 mg/dL (0.2-1.0); BLOOD UREA NITROGEN 44 mg/dL (7-18); CALCIUM 9.1 mg/dL (8.5-10.1); CHLORIDE 101 mmol/L (98-107); CO2 24 mmol/L (21-32); EOS % 0.1 % (0-4.5); GLUCOSE,RANDOM 137 mg/dL (74-106); HEMATOCRIT 39.6 % (35.4-49); HEMOGLOBIN 12.9 GM/dL (11.7-16.9); LYMPH % 15.5 % (8-40); MAGNESIUM 2.6 mg/dL (1.8-2.4); MCHC 32.7 g/dl (32.0-35.9); MEAN CELL VOLUME 91.9 fl (80-96); MEAN PLT VOLUME 9.4 fl (7.5-11.1); MONO % 8.2 % (3.8-10.2); NEUT % 75.9 % (42.8-82.8); PLATELET COUNT 186 K/MM3 (134-434); POTASSIUM 3.9 mmol/L (3.5-5.1); RBC 4.31 M/mm3 (4.00-5.60); RDW 14.9 % (11.9-15.9); SGOT/AST 25 U/L (15-37); SGPT/ALT 16 U/L (12-78); SODIUM 139 mmol/L (136-145); TOT PROT 6.7 g/dl (6.4-8.2); WHITE BLOOD COUNT 6.7 K/mm3 (4.0-10.0)
--- NOTE | 2017-10-07 23:22 | PDOC ---
Attending Attestation - Resident Resident Name: DianeDmitri - ED Attending Attestation I have performed the following: I have examined & evaluated the patient, The case was reviewed & discussed with the resident, I agree w/resident's findings & plan, Exceptions are as noted - HPI HPI: 10/07/17 23:16 82-year-old male , lives alone, h/o BPH complicated by recurring UTI p/w falls at home and progressive weakness in the setting of decreased PO intake/ anorexia for 5 days. no f/c, denies infectious sxs including UTI. Admits to some depression but no SI/SA Tonight, daughter activated EMS in this setting - Physicial Exam PE: 10/07/17 23:19 Vital signs stable, afebrile. Exam is atraumatic except for left upper extremity ecchymosis/abrasion, no focal deformity or tenderness and full range of motion Abdomen is benign Neurologically intact - Medical Decision Making 10/07/17 23:19 Patient seen and evaluated with the resident. I agree with the overall evaluation, assessment, and management with the following summary of visit: 82y/o M with progressive weakness, unkempt and dehydrated, ? in the setting of infection, depression? labs, ua cxr, ct head iv fluid hydration admission Heart Score/ECG Review #1 10/07/17 23:25 sinus rhythm with frequent APC and PVC. LVH, no acute ischemia. Of note, there appears to be a dropped P wave, ? 2nd degree type 2.
[2017-10-07 23:23] LABS: ALK PHOS 105 U/L (45-117)
[2017-10-07] MEDS ORDERED: SODIUM CHLORIDE 500 ML IV STA (23:57)
[2017-10-08] MEDS: traZODone HCL 100 MG TABLET (FP) PO ONE ×2 (00:26→01:52)
--- NOTE | 2017-10-08 00:28 | PN ---
Teaching Attending Note Name of Resident: Sachin Wheat ATTENDING PHYSICIAN STATEMENT I saw and evaluated the patient. I reviewed the resident's note and discussed the case with the resident. I agree with the resident's findings and plan as documented. SUBJECTIVE: patient was agitated, looks disheveled, urinated on himself. OBJECTIVE: ASSESSMENT AND PLAN: admit the patient to tele cardiology evaluation for non-conducting P wave, PAC and VPC urine analysis urine culture IVF geriatric social worker ID consult start pipercillin-tazobactam
[2017-10-08 00:37] LABS: URINE APPEARANCE CLOUDY; URINE BILIRUBIN NEGATIVE (NEGATIVE); URINE BLOOD 2+ (NEGATIVE); URINE COLOR YELLOW; URINE GLUCOSE (UA) NEGATIVE (NEGATIVE); URINE KETONE NEGATIVE (NEGATIVE); URINE LEUK ESTERASE TRACE (NEGATIVE); URINE NITRITE NEGATIVE (NEGATIVE)
--- NOTE | 2017-10-08 00:42 | HP ---
CHIEF COMPLAINT: s/p mechanical fall PCP: unknown HISTORY OF PRESENT ILLNESS: 82 y/o M with PMHx BPH ass. w/ recurrent UTIs, MDD presented to ER s/p mechanical fall. Pt states his "leg gave out" and he was able to get up by himself. He states he did not lose consciousness before or after, did not hit his head, no dizziness/lightheadness. He fell down on left arm. Brought to ED by daughter due to severe depression and pt was not taking care of himself at home. He was admitted for social placement. ER course was notable for: (1) head CT in progress; preliminary read by res - negative for acute intracranial pathology (2) CXR; read is not available, preliminary - negative (3) EKG - PAC, PVC, nonconductive P waves. please verify meds in AM. Recent Travel: denies PAST MEDICAL HISTORY: please verify from daughter; pt defers to her. PAST SURGICAL HISTORY: please verify from daughter; pt defers to her. Social History: Smoking: current, 1 ppd Alcohol: denies Drugs: denies Family History: Allergies No Known Drug Allergies Allergy (Verified 10/07/17 21:39) HOME MEDICATIONS: Home Medications Medication Instructions Recorded Aspirin [Aspirin EC] 81 mg PO ASDIR 02/05/15 Metoprolol Succinate [Toprol XL -] 100 mg PO DAILY 02/05/15 Simvastatin 10 mg PO HS 02/05/15 Bicalutamide 50 mg PO DAILY 02/05/17 Sulfacetamide Sodium 10% [Bleph-10] 2 drop QID #1 bottle 08/13/17 Citalopram Hydrobromide 10 mg PO HS 10/07/17 [Citalopram HBr] REVIEW OF SYSTEMS -- negative. CONSTITUTIONAL: Absent: fever, chills, diaphoresis, generalized weakness, malaise, loss of appetite, weight change HEENT: Absent: rhinorrhea, nasal congestion, throat pain, throat swelling, difficulty swallowing, mouth swelling, ear pain, eye pain, visual changes CARDIOVASCULAR: Absent: chest pain, syncope, palpitations, irregular heart rate, lightheadedness , peripheral edema RESPIRATORY: Absent: cough, shortness of breath, dyspnea with exertion, orthopnea, wheezing, stridor, hemoptysis GASTROINTESTINAL: Absent: abdominal pain, abdominal distension, nausea, vomiting, diarrhea, constipation, melena, hematochezia GENITOURINARY: Absent: dysuria, frequency, urgency, hesitancy, hematuria, flank pain, genital pain MUSCULOSKELETAL: Absent: myalgia, arthralgia, joint swelling, back pain, neck pain SKIN: Absent: rash, itching, pallor HEMATOLOGIC/IMMUNOLOGIC: Absent: easy bleeding, easy bruising, lymphadenopathy, frequent infections ENDOCRINE: Absent: unexplained weight gain, unexplained weight loss, heat intolerance, cold intolerance NEUROLOGIC: Absent: headache, focal weakness or paresthesias, dizziness, unsteady gait, seizure, mental status changes, bladder or bowel incontinence PSYCHIATRIC: Absent: anxiety, depression, suicidal or homicidal ideation, hallucinations. PHYSICAL EXAMINATION Vital Signs - 24 hr 10/07/17 10/07/17 21:39 22:57 Temperature 98.7 F Pulse Rate 83 Respiratory 18 Rate Blood Pressure 100/80 O2 Sat by Pulse 96 99 Oximetry (%) GENERAL: Awake, alert, and fully oriented, in no acute distress. HEAD: Normal with no signs of trauma. EYES: sclera anicteric EARS, NOSE, THROAT: Dry mucus membranes. , good dentition NECK: supple without lymphadenopathy, LUNGS: Breath sounds equal, clear to auscultation bilaterally. No wheezes, and no crackles. No accessory muscle use. HEART: Regular rate and rhythm, normal S1 and S2 without murmur, rub or gallop. ABDOMEN: Soft, nontender, not distended, normoactive bowel sounds, no guarding, no rebound,NO CVA tenderness UPPER EXTREMITIES: 2+ pulses, warm, well-perfused. No cyanosis. No clubbing. No peripheral edema. left arm echymosis , FROM , Strength 5/5 LOWER EXTREMITIES: 2+ pulses, warm, well-perfused. No calf tenderness. No peripheral edema. strength 5/5 NEUROLOGICAL: no focal deficit . Normal speech. PSYCHIATRIC: Cooperative. Flat effect. SKIN: Warm, dry, no rashes or lesions noted, Laboratory Results - last 24 hr 10/07/17 10/07/17 10/07/17 22:40 22:43 22:43 WBC 6.7 RBC 4.31 Hgb 12.9 Hct 39.6 MCV 91.9 MCH 30.0 MCHC 32.7 RDW 14.9 Plt Count 186 MPV 9.4 Neutrophils % 75.9 Lymphocytes % 15.5 D Monocytes % 8.2 D Eosinophils % 0.1 Basophils % 0.3 PT with INR 10.60 INR 0.94 Sodium 139 Potassium 3.9 Chloride 101 Carbon Dioxide 24 Anion Gap 14 BUN 44 H D Creatinine 2.0 H Creat Clearance w eGFR 32.07 Random Glucose 137 H Lactic Acid Calcium 9.1 Magnesium 2.6 H Total Bilirubin 1.3 H D AST 25 D ALT 16 D Alkaline Phosphatase 105 Creatine Kinase 383 H Creatine Kinase Index 0.6 CK-MB (CK-2) 2.468 Troponin I 0.13 H D Total Protein 6.7 Albumin 3.5 10/07/17 22:43 WBC RBC Hgb Hct MCV MCH MCHC RDW Plt Count MPV Neutrophils % Lymphocytes % Monocytes % Eosinophils % Basophils % PT with INR INR Sodium Potassium Chloride Carbon Dioxide Anion Gap BUN Creatinine Creat Clearance w eGFR Random Glucose Lactic Acid 2.4 H* Calcium Magnesium Total Bilirubin AST ALT Alkaline Phosphatase Creatine Kinase Creatine Kinase Index CK-MB (CK-2) Troponin I Total Protein Albumin ASSESSMENT/PLAN: 82 y/o M with PMHx BPH ass. w/ recurrent UTIs, MDD presented to ER s/p mechanical fall, was admitted for sochial placement and found to have PVC and PAC , non conductive P wave. # Mechanical fall * pt fell two days ago; head CT negative * PT * social worker clinical # [place] Likely 2/2 dehydration due to low oral intake r/o UTI * BUN/Cr 44/2.0 * Urine lytes * Zosyn for possible UTI, empiric treatment pending UA * IVF D51/2NS 1000 mls @100cc/hr * repeat BMP in AM * repeat LA at 4 AM # Abnormal EKG * Non conductive P wave in multiple leads * Consult cardiology * ECHO in AM * repeat trop q6hr; next one at 5 am #MDD * Psych evaluation for suspected MDD * No homocidal or suicidal ideation # FEN * F: D5/1/2 NS @ 100 CC/hr * E: WNL * N: NPO, speech and swallow # Proph, * DVT: SCS both legs # dispo * Admit to med-surg Visit type - Emergency Visit Emergency Visit: Yes ED Registration Date: 10/08/17 Care time: The patient presented to the Emergency Department on the above date and was hospitalized for further evaluation of their emergent condition. - New Patient This patient is new to me today: Yes Date on this admission: 10/08/17 - Critical Care Critical Care patient: No
[2017-10-08] MEDS ORDERED: PIPERACILLIN/TAZOB 4.5 GM 4.5 GM/100 ML BAG IVPB ONE ×2 (00:44→00:56)
[2017-10-08] MEDS ORDERED: DEXTROSE 5%-0.45% SALINE 1,000 ML IV SCH (00:45)
[2017-10-08 00:46] LABS: URINE PROTEIN 1+ (NEGATIVE)
[2017-10-08 00:53] LABS: EPI CELLS RARE /HPF (FEW); URINE MUCUS RARE
[2017-10-08] MEDS ORDERED: HEPARIN NA (PORCINE) 5,000 UNITS/ML 1ML VIAL ONE (06:26)
[2017-10-08] MEDS: HEPARIN NA (PORCINE) 5,000 UNITS/ML 1ML VIAL SQ SCH ×3 (06:26→21:37)
[2017-10-08 07:00] LABS: ALBUMIN 3.1 g/dl (3.4-5.0); ALK PHOS 101 U/L (45-117); ANION GAP 8 (8-16); BILIRUBIN,TOTAL 1.5 mg/dL (0.2-1.0); BLOOD UREA NITROGEN 36 mg/dL (7-18); CALCIUM 8.3 mg/dL (8.5-10.1); CHLORIDE 103 mmol/L (98-107); CO2 27 mmol/L (21-32); CREATININE 1.8 mg/dL (0.7-1.3); GLUCOSE,RANDOM 145 mg/dL (74-106); MAGNESIUM 2.5 mg/dL (1.8-2.4); PHOSPHOROUS 3.4 mg/dL (2.5-4.9); POTASSIUM 3.4 mmol/L (3.5-5.1); SGOT/AST 19 U/L (15-37); SGPT/ALT 16 U/L (12-78); SODIUM 138 mmol/L (136-145); TOT PROT 6.3 g/dl (6.4-8.2)
[2017-10-08 07:52] LABS: BASO % 0.7 % (0-2.0); EOS % 0.7 % (0-4.5); HEMOGLOBIN 12.7 GM/dL (11.7-16.9); LYMPH % 19.2 % (8-40); MCH 29.7 pg (25.7-33.7); MCHC 32.5 g/dl (32.0-35.9); MEAN CELL VOLUME 91.5 fl (80-96); MEAN PLT VOLUME 8.7 fl (7.5-11.1); MONO % 7.7 % (3.8-10.2); NEUT % 71.7 % (42.8-82.8); PLATELET COUNT 165 K/MM3 (134-434); RBC 4.26 M/mm3 (4.00-5.60); RDW 14.3 % (11.9-15.9); WHITE BLOOD COUNT 6.8 K/mm3 (4.0-10.0)
[2017-10-08] MEDS ORDERED: POTASSIUM CHLORIDE TABS 20 MEQ TABLET.ER (FP) PO ONE ×2 (08:53→09:21)
[2017-10-08] MEDS ORDERED: METOPROLOL SUCCINATE 50 MG TAB.SR.24H (FP) ONE (09:21)
--- NOTE | 2017-10-08 09:23 | EKG ---
Test Reason : Blood Pressure : / mmHG Vent. Rate : 089 BPM Atrial Rate : 156 BPM P-R Int : 000 ms QRS Dur : 080 ms QT Int : 370 ms P-R-T Axes : 000 049 054 degrees QTc Int : 450 ms ATRIAL FIBRILLATION WITH PREMATURE VENTRICULAR OR ABERRANTLY CONDUCTED COMPLEXES MINIMAL VOLTAGE CRITERIA FOR LVH, MAY BE NORMAL VARIANT NONSPECIFIC ST AND T WAVE ABNORMALITY ABNORMAL ECG WHEN COMPARED WITH ECG OF 08-FEB-2017 18:37, ATRIAL FIBRILLATION HAS REPLACED SINUS RHYTHM NONSPECIFIC T WAVE ABNORMALITY NOW EVIDENT IN LATERAL LEADS Confirmed by MARY ROCK MD ([id number]) on 10/08/2017 9:22:57 AM Referred By: Confirmed By:MARY ROCK MD
[2017-10-08] MEDS ORDERED: ASPIRIN COATED 81 MG TABLET.EC PO SCH (09:30)
[2017-10-08] MEDS ORDERED: METOPROLOL SUCCINATE 100 MG TAB.SR.24H (FP) PO SCH (10:00)
[2017-10-08] MEDS ORDERED: METOPROLOL SUCCINATE 50 MG TAB.SR.24H (FP) PO SCH (10:00)
--- NOTE | 2017-10-08 10:20 | PN ---
Progress Note (short form) - Note Progress Note: ID consult dictated imp/reccd 82 year old man with prostate cancer and bladder cancer, history of urinary colonization with pseudomonas, depression, weight loss followed by urology- dr barry/claire admitted after a fall one week ago and poor oral intake no fevers/chills no dysuria no signs of infection-suspect asymptomatic bacteriuria would observe off antibiotics c/o feeling cold- will get blood cultures Problem List - Problems (1) Asymptomatic bacteriuria Code(s): R82.71 - BACTERIURIA (2) Failure to thrive in adult Code(s): R62.7 - ADULT FAILURE TO THRIVE
[2017-10-08] MEDS: SODIUM CHLORIDE 1,000 ML IV SCH ×2 (11:20→17:42)
--- NOTE | 2017-10-08 11:49 | CONS ---
INFECTIOUS DISEASE CONSULTATION DATE OF CONSULTATION: DATE OF DICTATION: 10/08/2017 Requested by hospitalist service. This is an 82-year-old man who about a week ago sustained a fall in the bathroom. There was no loss of consciousness. He injured his left elbow and the back of his head. He really has been eating poorly, since that time, and he was brought to the hospital because of that. I spoke with Dr. Whelan who had seen the patient in the office. He has a history of bladder cancer, and has had BCG instillations in the past, as well as prostate cancer. He is followed by Dr. Mcleod and Dr. Banerjee who are his urologists. He has apparently had progressive weight loss and severe depression. In the emergency room, he had a head CT that was negative for acute intracranial pathology, a normal chest x-ray. He had no fever and his white count was normal. Currently, he is alert. He is complaining of being cold, but otherwise has no complaints. He denies any dysuria. Denies any diarrhea or abdominal pain. He has been drinking, he says, water and herlinda jackie, but really has not been eating. PAST MEDICAL HISTORY: Notable for UTI. Apparently, he has had pseudomonas in the past. There is no history of ESBL organisms. Past medical history is otherwise unremarkable. He has had prior falls before. ALLERGIES: He has no known drug allergies. MEDICATIONS: As an outpatient include simvastatin, metoprolol, Celexa, bicalutamide, and aspirin. SOCIAL HISTORY: He is an active smoker. He lives alone. He has been for 4 years and apparently has been quite depressed since his . He has two daughters who are involved in his healthcare. REVIEW OF SYSTEMS: Notable for weight loss. He denies fever or chills, night sweats. He denies cough, nausea, vomiting, diarrhea, or dysuria. PHYSICAL EXAMINATION: Vital signs: His temperature is 97.8. His pulse is 97. Blood pressure is 137/ 111. Respiratory rate is 18. He is saturating 95% on room air. HEENT: He is normocephalic. His eyes are anicteric. He has moist mucous membranes. Neck: Supple. He has no palpable adenopathy. Lungs: Clear to auscultation. Heart: Regular rate and rhythm. Abdomen: Soft. Nontender. He has no CVA or suprapubic tenderness. Extremities: He has multiple skin abrasions of his knees, as well as both his elbows. He has multiple skin ecchymoses. His labs are notable for a white count of 6.8, hemoglobin is 12.7, platelets are 165. BUN and creatinine were 44 and 2 on admission; this morning, 36 and 1.8. Lactic acid was 2.4 and is now 1.3 with a troponin of 0.13. His urinalysis has 2+ blood with 10 white cells and urine culture has been sent. In summary, this is an 82-year-old man admitted with failure to thrive. He has a history of known bladder cancer and prostate cancer. He has a history of colonization with pseudomonas in his urine in the past. He is quite asymptomatic. He has no fever. White count is normal. He has no symptoms to suggest a UTI. Would obtain blood cultures for completeness, but would currently observe him off antibiotics. I do not suspect he has an active infection. Further recommendations to follow. Eloina [id number] MTDD
[2017-10-08 12:54] LABS: CHOLESTEROL 127 mg/dL (50-200); HDL CHOLESTEROL 45 mg/dL (40-60); LDL CHOLESTEROL (ONLY SJRH) 66 mg/dL (5-100); TRIGLYCERIDES 174 mg/dL (35-160)
--- NOTE | 2017-10-08 13:17 | CONSULT ---
Admitting History and Physical - Primary Care Physician PCP: Abran Randolph - Admission History of Present Illness: Per EMR: 82 year old man with prostate cancer and bladder cancer, history of urinary colonization with pseudomonas, depression, weight loss admitted after a fall one week ago and poor oral intake. 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) Cardiovascular: Yes: HTN, Hyperlipdemia Infectious Disease: Yes: Other (uti) Psych: Yes: Anxiety - Smoking History Smoking history: Current every day smoker Have you smoked in the past 12 months: Yes Aproximately how many cigarettes per day: 20 (Never been seen by ENT) - Alcohol/Substance Use Hx Alcohol Use: No History - Admission Reason For Visit: URINARY TRACT INFECTION,FAILURE TO THRIVE IN ADULT - Diagnostics X-ray: Report Reviewed - General Mental Status: Alert and Oriented, Awake and Alert, Able to Follow Commands, Forgetful Attention: Intact Ability to Follow Directions: Good Head/Neck Control: WFL - Hearing Hearing: Functional Speech Evaluation - Communication Primary Language: STATELESS Communication: Yes: Within Normal Limits - Speech Production Able to Make Needs Known: Yes: WNL Intelligibility: Yes: WNL - Speech Characteristics Voice Loudness: Normal Voice Pitch: Yes: Normal Voice Phonatory-based Quality: Yes: Dysphonia (intermittent), Vocal Wetness ( intermittent) Speech Clarity: < 100% Nasal Resonance: Normal Articulation: Yes: Precise Rate of Speech: Intact - Language/Auditory Comprehension Follows: Yes: 2 Stage Simple Commands - Language/Verbal Expression Able to Respond to Simple Queries: Yes: WNL Able to Communicate Wants and Needs: Yes: WNL - Swallow Evaluation/Bedside Assessment Current Nutritional Intake: NPO Oral Secretions: Yes: WFL Dentition: Yes: Adequate, Dental Appliance Upper Facial Symmetry at Rest: Facial Droop Left (slight? at rest) Facial Symmetry on Retraction: Symmetrical Sensation: Normal Against Resistance Opening: Normal Against Resistance Closing: Normal Pucker Lips: Normal Smile: Normal Lingual Movement: Normal, Symmetric Lingual Speed of Movement: Normal Lingual Movement Strgth Against Opposition: Normal Lingual Movement Characteristics: Normal Velopharyngeal Movement: Normal Laryngeal Movement: Reduced Excursion, Labored,delay initiation, Reduced Velocity Rate of Intake: WFL Bolus Size: WFL Labial Seal: WFL Chewing: WFL Oral Prep Time: WFL A-P Transit: WFL Pocketing: None Timing of Swallow: Delayed Coughing/Throat Clear: No Change in Voice: Yes (intermittent) Recommendations - Speech Evaluation, Impression/Plan Impression: Current smoker. Intermittent vocal wetness and dysphonia, cleared with volitional cough. Swallow seems mildly reduced delayed and in laryngeal elevation. Swallow overtly seems function. - Dysphagia Impressions/Plan Dysphagia Impressions: Mild Impairment, Risk of Aspiration *Silent aspiration: cannot be R/O at bedside Recommendations: Modified Barium Swallow (If cough, congestion, fever, vocal wetness.) - Recommendations Diet Consistency: Regular (soft,as tolerated) Medication Administration: Whole with water Liquids: Thin Liquids Supplement: Ensure (Vanilla), Magic Cup
--- NOTE | 2017-10-08 14:53 | PN ---
Teaching Attending Note Name of Resident: Elvin Monet ATTENDING PHYSICIAN STATEMENT I saw and evaluated the patient. I reviewed the resident's note and discussed the case with the resident. I agree with the resident's findings and plan as documented. SUBJECTIVE: feels very depressed. has no SI , has no abd pain , fever or chills, had a fall at home, but has no pain after fall ( elbow pain resolevd ) OBJECTIVE: NAD , awake , alert, cooperative. dry MM , thrush CV: irreg irreg . Lungs : CTAB , decreased breath sounds at R lung filed ext : no edema , bruises o n skin Abd: soft, NT, N D , NL BS ASSESSMENT AND PLAN: 82 y/o man with h/o UTIS, pseudomonas colonization, depression , and otehr medical problems who presented after a fall 1- volume depletion : - gentle IV hydration 2- low grade pyuria , no sx. no abd tenderness or fever or leukocytosis . unlikely UTI - follow urine cx - Hold off abx. 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 unclear etiology , echo in 02/24 with no significant findings - monitor - correct any electrolyte abn 4-CKD III: Cr at base line 5- Depression , no SI . - will confirm his home meds , and resume - psych consult pending 6-Thrush: start nystatin swish and swallow 7- HTN:will confirm home meds. give toprol 50 for now DVT PX will need PT and possibly SNF
--- NOTE | 2017-10-08 16:48 | CON.CARD ---
Cardiology Consult (text) - Consultation Consultation Note: Covering consult for Dr. Hernandez CC: arrhythmia 82 yo smoker with h/o htn, hld, ckd (bline cr 1.8-2.1) , recurrent uti, recurrent falls p/w failure to thrive and noted to have abnormal ekg. Recent mechanical fall. Progressive poor po intake. + depression Provides limited information. Denies any discomfort. He denies n/v/d, f/c/s, cough, congestion rashes, headache, visual disturbances. Denies chest pain, shortness of breath, orthopnea, pnd, le edema, palps, dizziness, transient neurologic sx's. Started on IVF in ER. PAST MEDICAL HISTORY/PSHx: per hpi Social History: + tobacco fam hx: denies cardiac hx ros: per hpi, limited Ambulatory Orders Aspirin [Aspirin EC] 81 mg PO ASDIR 02/05/15 Metoprolol Succinate [Toprol XL -] 100 mg PO DAILY 02/05/15 Simvastatin 10 mg PO HS 02/05/15 Bicalutamide 50 mg PO DAILY 02/05/17 Sulfacetamide Sodium 10% [Bleph-10] 2 drop QID #1 bottle 08/13/17 Citalopram Hydrobromide [Citalopram HBr] 10 mg PO HS 10/07/17 Tamsulosin HCl [Flomax] 0.4 mg PO DAILY 10/08/17 Trazodone HCl 50 mg PO DAILY 10/08/17 Current Medications Citalopram Hydrobromide (Celexa -) 10 mg PO [facility] Heparin Sodium (Porcine) (Heparin -) 5,000 unit SQ TID [facility] Last Admin: 10/08/17 06:26 Dose: 5,000 unit Sodium Chloride (Normal Saline -) 1,000 mls @ 75 mls/hr IV [facility] Last Admin: 10/08/17 11:20 Dose: 75 mls/hr Metoprolol Succinate (Toprol Xl -) 50 mg PO DAILY [facility] Last Admin: 10/08/17 09:31 Dose: 50 mg Nystatin (Nystatin Oral Suspension -) 500,000 units PO Q6HPO [facility] Vital Signs - 24 hr 10/07/17 10/07/17 10/08/17 21:39 22:57 04:42 Temperature 98.7 F Pulse Rate 83 Pulse Rate [ 65 Right Brachial] Respiratory 18 18 Rate Blood Pressure 100/80 Blood Pressure 155/77 [Right Arm] O2 Sat by Pulse 96 99 97 Oximetry (%) 10/08/17 10/08/17 10/08/17 05:36 07:56 13:02 Temperature 97.8 F 97.8 F Pulse Rate Pulse Rate [ 97 H 77 Right Brachial] Respiratory 18 17 Rate Blood Pressure Blood Pressure 137/111 155/75 [Right Arm] O2 Sat by Pulse 97 95 97 Oximetry (%) 10/08/17 15:15 Temperature Pulse Rate Pulse Rate [ Right Brachial] Respiratory Rate Blood Pressure Blood Pressure [Right Arm] O2 Sat by Pulse 97 Oximetry (%) Intake & Output 10/06/17 10/07/17 10/08/17 10/09/17 07:59 07:59 07:59 07:59 Weight 170 lb 162 lb 3.2 oz NAD, calm jvd flat, neck supple ctab, nl effort irregular rhythm, nl rate. no mrg + bs soft nt nd ext without e/c/c diminished dp/pt no jaundice, diaphoresis aaox3 CBC, BMP 10/08/17 07:15 10/08/17 06:20 Laboratory Tests 10/07/17 10/07/17 10/07/17 22:40 22:43 22:43 INR 0.94 Creatinine 2.0 H Lactic Acid 2.4 H* Magnesium Total Bilirubin AST ALT Alkaline Phosphatase Creatine Kinase 383 H Creatine Kinase Index 0.6 CK-MB (CK-2) 2.468 Troponin I 0.13 H D Albumin Triglycerides Cholesterol Total LDL Cholesterol HDL Cholesterol 10/08/17 10/08/17 10/08/17 01:22 06:20 06:20 INR Creatinine Lactic Acid 1.3 Magnesium 2.5 H Total Bilirubin 1.5 H AST 19 D ALT 16 Alkaline Phosphatase 101 Creatine Kinase Creatine Kinase Index CK-MB (CK-2) Troponin I 0.12 H Albumin 3.1 L Triglycerides Cholesterol Total LDL Cholesterol HDL Cholesterol 10/08/17 10/08/17 12:16 12:16 INR Creatinine Lactic Acid Magnesium Total Bilirubin AST ALT Alkaline Phosphatase Creatine Kinase 204 Creatine Kinase Index 0.6 CK-MB (CK-2) 1.423 Troponin I Albumin Triglycerides 174 H Cholesterol 127 Total LDL Cholesterol 66 HDL Cholesterol 45 ekg 09/2017: poor baseline/artifact. Likely SR with frequent pac's/junctional beats and pvc's/aberrant conduction. one blocked pac. non-specific anterior t wave abnormality. cxr 10/07: left basilar atelectasis. no infiltrates/edema. cxr 10/08: no new findings head ct: no acute pathology. chronic microangiopathic changes. volume loss with resulting dilation of ventricles, no hydrocephalus. echo 02/2017: nl lv/rv size/fn. 1+ mr/tr 1+ ao dilation. a/p: 82 yo smoker with h/o htn, hld, ckd (bline cr 1.8-2.1) , recurrent uti, recurrent falls p/w failure to thrive and noted to have abnormal ekg. Ab ekg - echo from 02/2017 - without significant abnormalities. - prior h/o wandering atrial pacemaker. EKG from this admission with frequent atrial and ventricular ectopy --> would repeat. - electrolytes repletion prn - Con't av jamal blockade, but in light of severe depression will change to calcium channel trevon (dilt) in case BB is exacerbating mood disorder. Abnormal troponin - Borderline intermediate troponin elevation. Flat trend. patient with ckd. Doubt acs. no ischemic changes on ekg or anginal sx's. no further work up needed at this time. HTN - overall controlled, monitor with above med changes HL - on simvastatin at home, can resume as outpatient once acute issues resolve. tobacco use: - cessation discussed mechanical fall - mgm't per pmd - currently no concern for syncope/presyncope
--- NOTE | 2017-10-08 17:17 | CON.PSY ---
Psychiatry Consult Chief Complaint: 82 year old male, admitted for poor thriving, increased depression. poor appetite poor sleep. spoke to patients daughter who reportede that he had been on Lexapro, zoloft with poor response. Symptoms: reports: Depressed Mood, Anhedonia, Decreased Energy - Previous Psychiatric Treatment Outpatient: Less than 6 mos ago Inpatient: None - Previous Substance Abuse Treatment Outpatient: None Inpatient: None - Reason for Previous Treatment Reason for Previous Treatment: Major Depression - Current Medications Current Medications: Active Medications Heparin Sodium (Porcine) (Heparin -) 5,000 unit SQ TID [facility] Last Admin: 10/08/17 16:01 Dose: 5,000 unit Sodium Chloride (Normal Saline -) 1,000 mls @ 75 mls/hr IV ASDIR [facility] Last Admin: 10/08/17 11:20 Dose: 75 mls/hr Metoprolol Succinate (Toprol Xl -) 50 mg PO DAILY [facility] Last Admin: 10/08/17 09:31 Dose: 50 mg Nystatin (Nystatin Oral Suspension -) 500,000 units PO Q6HPO [facility] - Allergies Allergies: Allergies Allergy/AdvReac Type Severity Reaction Status Date / Time No Known Drug Allergies Allergy Verified 10/07/17 21:39 - Current Living Status Usual Living Arrangement: Alone - Current Mental Status Evaluation Appearance: Disheveled Attitude: Cooperative - Affect Affect: Constrictive Appropriateness: Appropriate to Content - Mood Mood: Depressed - Speech/Language Expressive: Coherent - Psychomotor Activity Psychomotor Activity: Slowed - Thought Process Thought Process: Intact - Thought Content Hallucinations: Absent Delusions: Absent - Self Perception Self Perception: No Impairment - Cognition Attention: Alert Orientation: Time Memory, Immediate Recall: Intact Memory, Short Term: 2/3 Memory, Remote with Promptin/3 - Concentration Serial Sevens Intact: Yes Simple Calculations Intact: Yes - Abstraction Proverb Interpretation: Intact Judgement: Intact - Insight Insight: Intact - Impulse Control Impulse Control: Good Control - Suicidal Ideation Suicidal Ideation: No - Homicidal Ideation Homicidal Ideation: No Problem List - Problems (1) Major depressive disorder Code(s): F32.9 - MAJOR DEPRESSIVE DISORDER, SINGLE EPISODE, UNSPECIFIED Assessment/Plan 1) REmderon 30mg po hs. 2) d/c trtazadone cand celexa. 3) Paychology consult for supportive tharapy.
[2017-10-08] MEDS: NYSTATIN 500,000 UNITS/5 ML SUSPENSION PO SCH (18:18)
[2017-10-08] MEDS ORDERED: PT OWN MED DRAWER 7, Y5N ONE (18:49)
[2017-10-08 19:18] VITALS: BMI 22.1
--- NOTE | 2017-10-08 20:39 | PN ---
Physical Exam: SUBJECTIVE: Patient seen and examined. Pt reports poor appetite, but denies SOB, chest pain, abdominal pain, n/v/d/c, dysuria, and arm pain. OBJECTIVE: Vital Signs Period Temp Pulse Resp BP Sys/Trejo Pulse Ox Last 24 Hr 97.8 F-98.7 F 65-97 17-20 97-155/75-111 95-99 GENERAL: elderly disheveled male, lying in bed, in NAD HEENT: thrush NECK: Trachea midline, full range of motion, supple. LUNGS: decreased breath sounds on right side HEART: irregularly irregular ABDOMEN: Soft, nontender, nondistended, normoactive bowel sounds, no guarding, no rebound, no hepatosplenomegaly, no masses. EXTREMITIES: 2+ pulses, warm, well-perfused, no edema. NEUROLOGICAL: Cranial nerves II through XII grossly intact. Normal speech. strength and sensory function intact PSYCH: depressed mood and affect SKIN: bruised over left forearm Laboratory Results - last 24 hr 10/07/17 10/07/17 10/07/17 22:40 22:43 22:43 WBC 6.7 Corrected WBC (auto) RBC 4.31 Hgb 12.9 Hct 39.6 MCV 91.9 MCH 30.0 MCHC 32.7 RDW 14.9 Plt Count 186 MPV 9.4 Neutrophils % 75.9 Lymphocytes % 15.5 D Monocytes % 8.2 D Eosinophils % 0.1 Basophils % 0.3 Nucleated RBC % Platelet Estimate Platelet Comment PT with INR 10.60 INR 0.94 Sodium 139 Potassium 3.9 Chloride 101 Carbon Dioxide 24 Anion Gap 14 BUN 44 H D Creatinine 2.0 H Creat Clearance w eGFR 32.07 Random Glucose 137 H Lactic Acid Calcium 9.1 Phosphorus Magnesium 2.6 H Total Bilirubin 1.3 H D AST 25 D ALT 16 D Alkaline Phosphatase 105 Creatine Kinase 383 H Creatine Kinase Index 0.6 CK-MB (CK-2) 2.468 Troponin I 0.13 H D Total Protein 6.7 Albumin 3.5 Triglycerides Cholesterol Total LDL Cholesterol HDL Cholesterol Urine Color Urine Appearance Urine pH Ur Specific Perry Urine Protein Urine Glucose (UA) Urine Ketones Urine Blood Urine Nitrite Urine Bilirubin Urine Urobilinogen Urine WBC (Auto) Urine RBC (Auto) Ur Epithelial Cells Urine Mucus Ur Random Sodium Ur Random Potassium Ur Random Chloride 10/07/17 10/08/17 10/08/17 22:43 00:06 01:22 WBC Corrected WBC (auto) RBC Hgb Hct MCV MCH MCHC RDW Plt Count MPV Neutrophils % Lymphocytes % Monocytes % Eosinophils % Basophils % Nucleated RBC % Platelet Estimate Platelet Comment PT with INR INR Sodium Potassium Chloride Carbon Dioxide Anion Gap BUN Creatinine Creat Clearance w eGFR Random Glucose Lactic Acid 2.4 H* Calcium Phosphorus Magnesium Total Bilirubin AST ALT Alkaline Phosphatase Creatine Kinase Creatine Kinase Index CK-MB (CK-2) Troponin I Total Protein Albumin Triglycerides Cholesterol Total LDL Cholesterol HDL Cholesterol Urine Color Yellow Urine Appearance Cloudy Urine pH 7.0 Ur Specific Perry 1.016 Urine Protein 1+ H Urine Glucose (UA) Negative Urine Ketones Negative Urine Blood 2+ H Urine Nitrite Negative Urine Bilirubin Negative Urine Urobilinogen 2.0 Urine WBC (Auto) 10 Urine RBC (Auto) 15 Ur Epithelial Cells Rare Urine Mucus Rare Ur Random Sodium 38 Ur Random Potassium 32.4 Ur Random Chloride 38 10/08/17 10/08/17 10/08/17 01:22 06:20 06:20 WBC Cancelled Corrected WBC (auto) Cancelled RBC Cancelled Hgb Cancelled Hct Cancelled MCV Cancelled MCH Cancelled MCHC Cancelled RDW Cancelled Plt Count Cancelled MPV Cancelled Neutrophils % Cancelled Lymphocytes % Cancelled Monocytes % Cancelled Eosinophils % Cancelled Basophils % Cancelled Nucleated RBC % Cancelled Platelet Estimate Cancelled Platelet Comment Cancelled PT with INR INR Sodium 138 Potassium 3.4 L Chloride 103 Carbon Dioxide 27 Anion Gap 8 BUN 36 H Creatinine 1.8 H Creat Clearance w eGFR 36.21 Random Glucose 145 H Lactic Acid 1.3 Calcium 8.3 L Phosphorus 3.4 Magnesium 2.5 H Total Bilirubin 1.5 H AST 19 D ALT 16 Alkaline Phosphatase 101 Creatine Kinase Creatine Kinase Index CK-MB (CK-2) Troponin I Total Protein 6.3 L Albumin 3.1 L Triglycerides Cholesterol Total LDL Cholesterol HDL Cholesterol Urine Color Urine Appearance Urine pH Ur Specific Perry Urine Protein Urine Glucose (UA) Urine Ketones Urine Blood Urine Nitrite Urine Bilirubin Urine Urobilinogen Urine WBC (Auto) Urine RBC (Auto) Ur Epithelial Cells Urine Mucus Ur Random Sodium Ur Random Potassium Ur Random Chloride 10/08/17 10/08/17 10/08/17 06:20 07:15 12:16 WBC 6.8 Corrected WBC (auto) RBC 4.26 Hgb 12.7 Hct 39.0 MCV 91.5 MCH 29.7 MCHC 32.5 RDW 14.3 Plt Count 165 MPV 8.7 Neutrophils % 71.7 Lymphocytes % 19.2 D Monocytes % 7.7 Eosinophils % 0.7 D Basophils % 0.7 Nucleated RBC % Platelet Estimate Platelet Comment PT with INR INR Sodium Potassium Chloride Carbon Dioxide Anion Gap BUN Creatinine Creat Clearance w eGFR Random Glucose Lactic Acid Calcium Phosphorus Magnesium Total Bilirubin AST ALT Alkaline Phosphatase Creatine Kinase Creatine Kinase Index CK-MB (CK-2) Troponin I 0.12 H Total Protein Albumin Triglycerides 174 H Cholesterol 127 Total LDL Cholesterol 66 HDL Cholesterol 45 Urine Color Urine Appearance Urine pH Ur Specific Perry Urine Protein Urine Glucose (UA) Urine Ketones Urine Blood Urine Nitrite Urine Bilirubin Urine Urobilinogen Urine WBC (Auto) Urine RBC (Auto) Ur Epithelial Cells Urine Mucus Ur Random Sodium Ur Random Potassium Ur Random Chloride 10/08/17 12:16 WBC Corrected WBC (auto) RBC Hgb Hct MCV MCH MCHC RDW Plt Count MPV Neutrophils % Lymphocytes % Monocytes % Eosinophils % Basophils % Nucleated RBC % Platelet Estimate Platelet Comment PT with INR INR Sodium Potassium Chloride Carbon Dioxide Anion Gap BUN Creatinine Creat Clearance w eGFR Random Glucose Lactic Acid Calcium Phosphorus Magnesium Total Bilirubin AST ALT Alkaline Phosphatase Creatine Kinase 204 Creatine Kinase Index 0.6 CK-MB (CK-2) 1.423 Troponin I Total Protein Albumin Triglycerides Cholesterol Total LDL Cholesterol HDL Cholesterol Urine Color Urine Appearance Urine pH Ur Specific Perry Urine Protein Urine Glucose (UA) Urine Ketones Urine Blood Urine Nitrite Urine Bilirubin Urine Urobilinogen Urine WBC (Auto) Urine RBC (Auto) Ur Epithelial Cells Urine Mucus Ur Random Sodium Ur Random Potassium Ur Random Chloride Active Medications Generic Name Dose Route Start Last Admin Trade Name Jonesq PRN Reason Stop Dose Admin Aspirin 81 mg 10/09/17 10:00 Asa - PO DAILY GEE Bicalutamide 50 mg 10/09/17 10:00 Casodex - PO DAILY GEE Heparin Sodium (Porcine) 5,000 unit 10/08/17 06:00 10/08/17 16:01 Heparin - SQ 5,000 unit TID GEE Administration Sodium Chloride 1,000 mls @ 75 mls/hr 10/08/17 09:30 10/08/17 17:42 Normal Saline - IV 75 mls/hr ASDIR GEE Administration Latanoprost 1 drop 10/08/17 22:00 Xalatan 0.005% Eye Drops - OU HS GEE Metoprolol Succinate 50 mg 10/08/17 10:00 10/08/17 09:31 Toprol Xl - PO 50 mg DAILY GEE Administration Mirtazapine 30 mg 10/08/17 22:00 Remeron - PO HS GEE Nystatin 500,000 units 10/08/17 18:00 10/08/17 18:18 Nystatin Oral Suspension - PO 500,000 units Q6HPO GEE Administration Tamsulosin HCl 0.4 mg 10/09/17 08:30 Flomax - PO DAILY@0830 [facility] ASSESSMENT/PLAN: 82M w/ hx of recurrent UTIs, pseudomonas colonization, MDD, HTN, HLD, DM, CKD, multiple falls, and cognitive decline who presented s/p fall 2/2 "legs giving out." #mechanical fall -likely 2/2 MDD -pt is 4-5/5 strength in all muscle groups -head CT: negative #volume depletion - NS @ 75 #low grade pyuria -unlikely UTI -f/u Ucx -per ID, hold abx for now #Wandering pace maker on EKG - asymptomatic, no tachycardia. unclear etiology - echo in 02/24 with no significant findings - continue to monitor #CKD III -Cr at baseline #Depression -psych on board, recs appreciated. trazodone and citalopram discontinued. started remeron. #Thrush -start nystatin swish and swallow #HTN -continue home toprol #FEN/ppx -NS @ 75 -K repleted -diabetic diet -no GI ppx indicated -heparin 5000U TID #Dispo: -will need PT and possibly SNF Case discussed with attending, Dr. Randolph. -Elvin Monet MD PGY1 Visit type - Emergency Visit Emergency Visit: Yes ED Registration Date: 10/08/17 Care time: The patient presented to the Emergency Department on the above date and was hospitalized for further evaluation of their emergent condition. - New Patient This patient is new to me today: Yes Date on this admission: 10/08/17 - Critical Care Critical Care patient: No
[2017-10-08] MEDS: MIRTAZAPINE 30 MG TABLET (FP) PO SCH (21:37)
[2017-10-08] MEDS: LATANOPROST 0.005% OPHTH SOLN 2.5ML BOTTLE OU SCH (21:37)
[2017-10-08] MEDS ORDERED: ATORVASTATIN CA 10 MG TABLET (FP) PO SCH (22:00)
[2017-10-08] MEDS ORDERED: CITALOPRAM HYDROBROMIDE 10 MG TABLET (FP) PO SCH ×2 (22:00)
[2017-10-09] MEDS: NYSTATIN 500,000 UNITS/5 ML SUSPENSION PO SCH ×4 (00:49→17:41)
[2017-10-09] MEDS: HEPARIN NA (PORCINE) 5,000 UNITS/ML 1ML VIAL SQ SCH ×3 (06:32→21:36)
[2017-10-09] MEDS: SODIUM CHLORIDE 1,000 ML IV SCH ×2 (06:50→09:36)
[2017-10-09 08:35] LABS: HEMATOCRIT 40.1 % (35.4-49); MCH 29.6 pg (25.7-33.7); MCHC 32.3 g/dl (32.0-35.9); MEAN CELL VOLUME 91.7 fl (80-96); MEAN PLT VOLUME 8.8 fl (7.5-11.1); PLATELET COUNT 189 K/MM3 (134-434); RBC 4.38 M/mm3 (4.00-5.60); RDW 14.6 % (11.9-15.9); WHITE BLOOD COUNT 6.2 K/mm3 (4.0-10.0)
[2017-10-09 08:55] LABS: ANION GAP 13 (8-16); BLOOD UREA NITROGEN 22 mg/dL (7-18); CALCIUM 8.8 mg/dL (8.5-10.1); CHLORIDE 106 mmol/L (98-107); CO2 24 mmol/L (21-32); CREATININE 1.5 mg/dL (0.7-1.3); GLUCOSE,RANDOM 118 mg/dL (74-106); POTASSIUM 3.5 mmol/L (3.5-5.1); SODIUM 143 mmol/L (136-145)
[2017-10-09] MEDS ORDERED: POTASSIUM CHLORIDE TABS 20 MEQ TABLET.ER (FP) PO ONE (09:12)
[2017-10-09] MEDS: ASPIRIN 81 MG CHEWABLE TABLETS PO SCH (09:36)
[2017-10-09] MEDS: TAMSULOSIN HCL 0.4 MG CAP.ER.24H (FP) PO SCH (09:36)
[2017-10-09] MEDS: BICALUTAMIDE 50 MG TABLET (FP) PO SCH (09:39)
--- NOTE | 2017-10-09 11:05 | EKG ---
Test Reason : Blood Pressure : / mmHG Vent. Rate : 083 BPM Atrial Rate : 083 BPM P-R Int : 134 ms QRS Dur : 090 ms QT Int : 414 ms P-R-T Axes : 074 040 -14 degrees QTc Int : 486 ms SINUS RHYTHM WITH FREQUENT PREMATURE VENTRICULAR COMPLEXES AND PREMATURE ATRIAL COMPLEXES NONSPECIFIC ST ABNORMALITY PROLONGED QT ABNORMAL ECG WHEN COMPARED WITH ECG OF 07-OCT-2017 22:41, RHYTHM ABOVE NONSPECIFIC T WAVE ABNORMALITY NOW EVIDENT IN INFERIOR LEADS NONSPECIFIC T WAVE ABNORMALITY NO LONGER EVIDENT IN LATERAL LEADS CLINICAL CORRELATION IS RECOMMENDED Confirmed by JOSE JAMES, RUBINA ([id number]) on 10/09/2017 11:04:34 AM Referred By: Confirmed By:RUBINA GARCIA MD
--- NOTE | 2017-10-09 15:28 | PN ---
Teaching Attending Note Name of Resident: Elvin Monet ATTENDING PHYSICIAN STATEMENT I saw and evaluated the patient. I reviewed the resident's note and discussed the case with the resident. I agree with the resident's findings and plan as documented. SUBJECTIVE: No fever or chills, cont to be depressed, but no SI. was agitated over night . denies any pain , has light headedness OBJECTIVE: NAD, awake, alert, cooperative. dry MM , thrush CV: irreg irreg rhythm . Lungs: CTAB, decreased breath sounds at R lung filed Ext : no edema , bruises on skin Abd: soft, NT, ND, NL BS Neuro: no facial droop, EOMI, round equal pupils, tongue at mid line, strength 5/5 in upper and lower extremities, proximally and distally ASSESSMENT AND PLAN: 82 y/o man with h/o UTIS, pseudomonas colonization, depression , and otehr medical problems who presented after a fall 1- Volume depletion: - gentle IV hydration 2- Asymptomatic Pyuria. U cx with no growth . 3- EKG abnormality : - appreciate Dr. Fitzpatrick HElp. repeat EKG last night with sinus rhythm with frequent PVCs - BB switched to CCB due to depression 4-CKD III: Cr at base line 5- Depression, no SI . - cont remeron started last night - off celexa and trazodone 6-Thrush: nystatin swish and swallow 7- HTN: CCB DVT PX PT eval for possible SNF placement
--- NOTE | 2017-10-09 16:08 | PN ---
Physical Exam: SUBJECTIVE: Patient seen and examined Pt reports poor appetite and feeling depressed, but denies SOB, chest pain, abdominal pain, n/v/d/c, dysuria, and arm pain. He appears quite confused, saying "I hear a woman's voice talking to me out there." OBJECTIVE: Vital Signs Period Temp Pulse Resp BP Sys/Trejo Pulse Ox Last 24 Hr 97.8 F-99.3 F 63-82 19-20 113-157/65-107 96-96 GENERAL: elderly disheveled male, lying in bed, in NAD, AAOx2 (name, time) HEENT: thrush NECK: Trachea midline, full range of motion, supple. LUNGS: decreased breath sounds on right side HEART: irregularly irregular ABDOMEN: Soft, nontender, nondistended, normoactive bowel sounds, no guarding, no rebound, no hepatosplenomegaly, no masses. EXTREMITIES: 2+ pulses, warm, well-perfused, no edema. NEUROLOGICAL: Cranial nerves II through XII grossly intact. Normal speech. strength and sensory function intact PSYCH: depressed mood and affect SKIN: bruised over left forearm Laboratory Results - last 24 hr 10/08/17 10/09/17 10/09/17 00:06 07:45 07:45 WBC 6.2 RBC 4.38 Hgb 13.0 Hct 40.1 MCV 91.7 MCH 29.6 MCHC 32.3 RDW 14.6 Plt Count 189 MPV 8.8 Sodium 143 Potassium 3.5 Chloride 106 Carbon Dioxide 24 Anion Gap 13 BUN 22 H D Creatinine 1.5 H Random Glucose 118 H Calcium 8.8 Ur Leukocyte Esterase Negative Active Medications Generic Name Dose Route Start Last Admin Trade Name Yuri PRN Reason Stop Dose Admin Aspirin 81 mg 10/09/17 10:00 10/09/17 09:36 Asa - PO 81 mg DAILY GEE Administration Bicalutamide 50 mg 10/09/17 10:00 10/09/17 09:39 Casodex - PO 50 mg DAILY GEE Administration Diltiazem HCl 180 mg 10/09/17 10:00 10/09/17 09:36 Cardizem Cd - PO 180 mg DAILY GEE Administration Heparin Sodium (Porcine) 5,000 unit 10/08/17 06:00 10/09/17 13:44 Heparin - SQ 5,000 unit TID GEE Administration Sodium Chloride 1,000 mls @ 75 mls/hr 10/08/17 09:30 10/09/17 09:36 Normal Saline - IV Not Given ASDIR GEE Latanoprost 1 drop 10/08/17 22:00 10/08/17 21:37 Xalatan 0.005% Eye Drops - OU 1 drop HS GEE Administration Mirtazapine 30 mg 10/08/17 22:00 10/08/17 21:37 Remeron - PO 30 mg HS GEE Administration Nystatin 500,000 units 10/08/17 18:00 10/09/17 12:29 Nystatin Oral Suspension - PO 500,000 units Q6HPO GEE Administration Tamsulosin HCl 0.4 mg 10/09/17 08:30 10/09/17 09:36 Flomax - PO 0.4 mg DAILY@0830 GEE Administration ASSESSMENT/PLAN: 82M w/ hx of recurrent UTIs, pseudomonas colonization, MDD, HTN, HLD, DM, CKD, multiple falls, and cognitive decline who presented s/p fall 2/2 "legs giving out." #mechanical fall -likely 2/2 MDD -pt is 4-5/5 strength in all muscle groups -head CT: negative #volume depletion - continue NS @ 75 #low grade pyuria -unlikely UTI -f/u Ucx -per ID, hold abx for now #Wandering pace maker on EKG - asymptomatic, no tachycardia. unclear etiology - echo in 02/24 with no significant findings - continue to monitor #CKD III -Cr at baseline #Depression -continue remeron per psych #Thrush -continue nystatin swish and swallow #HTN -continue home toprol #FEN/ppx -NS @ 75 -K repleted -diabetic diet -no GI ppx indicated -heparin 5000U TID #Dispo: -will need PT and SNF -message left with PT marine propulsion technician at around 11am to evaluate patient. Case discussed with attending, Dr. Randolph. -Elvin Monet MD PGY1 Visit type - Emergency Visit Emergency Visit: Yes ED Registration Date: 10/08/17 Care time: The patient presented to the Emergency Department on the above date and was hospitalized for further evaluation of their emergent condition. - New Patient This patient is new to me today: No - Critical Care Critical Care patient: No
[2017-10-09] MEDS: MIRTAZAPINE 30 MG TABLET (FP) PO SCH (21:36)
[2017-10-09] MEDS: LATANOPROST 0.005% OPHTH SOLN 2.5ML BOTTLE OU SCH (23:00)
[2017-10-10] MEDS: NYSTATIN 500,000 UNITS/5 ML SUSPENSION PO SCH ×4 (00:26→18:33)
[2017-10-10] MEDS: HEPARIN NA (PORCINE) 5,000 UNITS/ML 1ML VIAL SQ SCH ×3 (05:55→22:12)
[2017-10-10] MEDS: SODIUM CHLORIDE 1,000 ML IV SCH ×2 (05:58→16:05)
[2017-10-10] MEDS: TAMSULOSIN HCL 0.4 MG CAP.ER.24H (FP) PO SCH (08:07)
[2017-10-10 08:26] LABS: BASO % 0.7 % (0-2.0); EOS % 0.5 % (0-4.5); HEMATOCRIT 40.2 % (35.4-49); HEMOGLOBIN 12.8 GM/dL (11.7-16.9); LYMPH % 22.3 % (8-40); MCH 29.3 pg (25.7-33.7); MCHC 31.9 g/dl (32.0-35.9); MEAN CELL VOLUME 91.9 fl (80-96); MEAN PLT VOLUME 8.4 fl (7.5-11.1); MONO % 6.2 % (3.8-10.2); NEUT % 70.3 % (42.8-82.8); PLATELET COUNT 179 K/MM3 (134-434); RBC 4.38 M/mm3 (4.00-5.60); RDW 14.4 % (11.9-15.9); WHITE BLOOD COUNT 6.4 K/mm3 (4.0-10.0)
[2017-10-10 09:37] LABS: ANION GAP 8 (8-16); BLOOD UREA NITROGEN 22 mg/dL (7-18); CALCIUM 8.4 mg/dL (8.5-10.1); CHLORIDE 108 mmol/L (98-107); CO2 24 mmol/L (21-32); GLUCOSE,RANDOM 108 mg/dL (74-106); POTASSIUM 3.9 mmol/L (3.5-5.1); SODIUM 140 mmol/L (136-145)
[2017-10-10 09:39] LABS: CREATININE 1.6 mg/dL (0.7-1.3)
[2017-10-10] MEDS ORDERED: PT OWN MED DRAWER 7, Y5N ONE ×2 (11:02→22:09)
[2017-10-10] MEDS: ASPIRIN 81 MG CHEWABLE TABLETS PO SCH (11:06)
[2017-10-10] MEDS: BICALUTAMIDE 50 MG TABLET (FP) PO SCH (11:07)
--- NOTE | 2017-10-10 15:51 | PN ---
Progress Note (short form) - Note Progress Note: Subjective: no fever or chills . No abd apin , feels he was confused over night . visual hallucinations but those people he sees do not talk to him. Objective: Vital Signs: Last Vital Signs Temp Pulse Resp BP Pulse Ox 97.8 F 80 20 197/93 96 10/10/17 09:00 10/10/17 09:00 10/10/17 09:00 10/10/17 09:00 10/10/17 09:00 Laboratory Results - last 24 hr 10/10/17 10/10/17 07:17 07:17 WBC 6.4 RBC 4.38 Hgb 12.8 Hct 40.2 MCV 91.9 MCH 29.3 MCHC 31.9 L RDW 14.4 Plt Count 179 MPV 8.4 Neutrophils % 70.3 Lymphocytes % 22.3 Monocytes % 6.2 Eosinophils % 0.5 Basophils % 0.7 Sodium 140 Potassium 3.9 Chloride 108 H Carbon Dioxide 24 Anion Gap 8 BUN 22 H Creatinine 1.6 H Random Glucose 108 H Calcium 8.4 L Physical Exam: NAD, awake, alert, cooperative. MMM, CV: RRR. Lungs: CTAB, decreased breath sounds at R lung filed Ext: no edema , bruises on skin ASSESSMENT AND PLAN: 82 y/o man with h/o UTIS, pseudomonas colonization, depression , and otehr medical problems who presented after a fall 1- Volume depletion: - gentle IV hydration 2- Asymptomatic Pyuria. U cx with no growth . 3- EKG abnormality: - appreciate Dr. Fitzpatrick HElp. repeat EKG with sinus rhythm with frequent PVCs - BB switched to CCB due to depression 4-CKD III: Cr at base line 5- Depression, no SI . - cont remeron - off celexa and trazodone 6-Thrush: nystatin swish and swallow 7- HTN: CCB DVT PX PT eval for possible SNF placement Visit type - Emergency Visit Emergency Visit: Yes ED Registration Date: 10/08/17 Care time: The patient presented to the Emergency Department on the above date and was hospitalized for further evaluation of their emergent condition. - New Patient This patient is new to me today: No - Critical Care Critical Care patient: No
[2017-10-10] MEDS: amLODIPine BESYLATE 5 MG TABLET (FP) PO SCH (16:45)
[2017-10-10] MEDS: MIRTAZAPINE 30 MG TABLET (FP) PO SCH (22:12)
[2017-10-10] MEDS: LATANOPROST 0.005% OPHTH SOLN 2.5ML BOTTLE OU SCH (22:12)
[2017-10-11] MEDS: NYSTATIN 500,000 UNITS/5 ML SUSPENSION PO SCH ×5 (00:12→23:05)
[2017-10-11] MEDS: SODIUM CHLORIDE 1,000 ML IV SCH ×2 (00:49→11:09)
[2017-10-11] MEDS: HEPARIN NA (PORCINE) 5,000 UNITS/ML 1ML VIAL SQ SCH ×3 (05:53→21:07)
[2017-10-11] MEDS: TAMSULOSIN HCL 0.4 MG CAP.ER.24H (FP) PO SCH (08:09)
[2017-10-11] MEDS: ASPIRIN 81 MG CHEWABLE TABLETS PO SCH (11:10)
[2017-10-11] MEDS: amLODIPine BESYLATE 5 MG TABLET (FP) PO SCH (11:10)
[2017-10-11] MEDS: BICALUTAMIDE 50 MG TABLET (FP) PO SCH (11:13)
[2017-10-11] MEDS ORDERED: PT OWN MED DRAWER 7, Y5N ONE ×2 (11:13→20:57)
[2017-10-11] MEDS ORDERED: SENNOSIDES 8.6MG TABLET (FP) PO PRN (11:51)
[2017-10-11] MEDS: DOCUSATE SODIUM 100 MG CAPSULE (FP) PO PRN (13:39)
--- NOTE | 2017-10-11 13:41 | PN ---
Progress Note (short form) - Note Progress Note: patient seen for psych follow up. Spoke to one of his daughters. Staff report that patients appetite has gotten bit better. Patient apparantly telling Familly that he wants to go home. MS; Alert, oriented appears depressed but more alert. No evidence of any acute hallucinations or delusions. NO suicidal ideas or plans. PLAN: 1) Continue with Remeron 2) patient cannot go home. Rehab may be the best option and Patient has agreed to go. 3) will follow. Problem List - Problems (1) Major depressive disorder Code(s): F32.9 - MAJOR DEPRESSIVE DISORDER, SINGLE EPISODE, UNSPECIFIED
--- NOTE | 2017-10-11 15:09 | PN ---
Physical Exam: SUBJECTIVE: Patient seen and examined at bed side this morning. Patient reports that he feels sad and hears voices- talks to him about his past. No suicidal ideation. Wants to talk to his daughter and wants to go home. Denies chest pain , sob, cough, palpitation, abdominal pain, nausea or vomiting. Has constipation. Bladder habit normal. No acute overnight events as per RN. OBJECTIVE: Vital Signs Period Temp Pulse Resp BP Sys/Trejo Pulse Ox Last 24 Hr 97.3 F-98.8 F 77-110 18-20 109-143/62-99 96-96 GENERAL: Elderly patient is lying comfortably in bed, looks sad, is awake, alert, and fully oriented, in no acute distress. HEAD: Normal with no signs of trauma. EYES: EOM intact, no pallor or icterus. ENT: Ears normal, moist mucous membranes. NECK: Supple. LUNGS: Breath sounds equal, clear to auscultation bilaterally, no wheezes, no crackles, no accessory muscle use. HEART: Regular rate and rhythm, S1, S2 without murmur. ABDOMEN: Soft, nontender, nondistended, normoactive bowel sounds, no guarding, no rebound, no hepatosplenomegaly, no masses. EXTREMITIES: 2+ pulses, warm, well-perfused, no edema. NEUROLOGICAL: No facial droop. Normal speech, gait not observed. PSYCH: Normal mood, normal affect. SKIN: Warm, dry, normal turgor, no rashes or lesions noted Active Medications Generic Name Dose Route Start Last Admin Trade Name Freq PRN Reason Stop Dose Admin Amlodipine Besylate 5 mg 10/10/17 16:30 10/11/17 11:10 Norvasc - PO 5 mg DAILY GEE Administration Aspirin 81 mg 10/09/17 10:00 10/11/17 11:10 Asa - PO 81 mg DAILY GEE Administration Bicalutamide 50 mg 10/09/17 10:00 10/11/17 11:13 Casodex - PO 50 mg DAILY GEE Administration Diltiazem HCl 180 mg 10/09/17 10:00 10/11/17 11:10 Cardizem Cd - PO 180 mg DAILY GEE Administration Docusate Sodium 100 mg 10/11/17 11:51 10/11/17 13:39 Colace - PO 100 mg BID PRN Administration CONSTIPATION Heparin Sodium (Porcine) 5,000 unit 10/08/17 06:00 10/11/17 13:39 Heparin - SQ 5,000 unit TID GEE Administration Latanoprost 1 drop 10/08/17 22:00 10/10/17 22:12 Xalatan 0.005% Eye Drops - OU 1 drop HS GEE Administration Melatonin 3 mg 10/11/17 21:00 Melatonin PO HS@2100 GEE Mirtazapine 30 mg 10/08/17 22:00 10/10/17 22:12 Remeron - PO 30 mg HS GEE Administration Nystatin 500,000 units 10/08/17 18:00 10/11/17 11:13 Nystatin Oral Suspension - PO 500,000 units Q6HPO GEE Administration Senna 2 tab 10/11/17 11:51 Senna - PO HS PRN CONSTIPATION Tamsulosin HCl 0.4 mg 10/09/17 08:30 10/11/17 08:09 Flomax - PO 0.4 mg DAILY@0830 GEE Administration ASSESSMENT/PLAN: Patient is an 82 year old man with PMHx of UTI's, pseudomonas colonization, depression , and other medical problems who presented after a fall. # Volume depletion Now tolerating PO, will d/c IV fluids # Depression Has auditory hallucination but no SI Appreciate Psych consult, recommends to continue Rameron # Insomnia Will give him a dose of Melatonin tonight. # CKD-III Creatinine at baseline # Oral Thrush Nystatin swish and swallow # Hypertension-Controlled Continue Amlodipine 5mg PO Daily # FEN IV fluids discontinued, encourage PO Electrolytes WNL Diabetic diet # Prophylaxis For DVT: On Heparin 5000 IU sq TID For GI: Not indicated # Code Status: Full Code # Dispo: SNF placement. PT eval. Illness, Investigation and Plan of care explained to the patient. He verbalized understanding. Case discussed with Dr. Randolph. Visit type - Emergency Visit Emergency Visit: Yes ED Registration Date: 10/08/17 Care time: The patient presented to the Emergency Department on the above date and was hospitalized for further evaluation of their emergent condition. - New Patient This patient is new to me today: Yes Date on this admission: 10/11/17 - Critical Care Critical Care patient: No
--- NOTE | 2017-10-11 16:02 | PN ---
Teaching Attending Note Name of Resident: Bethany Gotti ATTENDING PHYSICIAN STATEMENT I saw and evaluated the patient. I reviewed the resident's note and discussed the case with the resident. I agree with the resident's findings and plan as documented. SUBJECTIVE: No fever or chills. has no abd pain, no CP or SOB . he did not sleep last night . ate breakfast this am . OBJECTIVE: NAD, awake, alert, cooperative. MMM, CV: RRR. Lungs: CTAB, decreased breath sounds at R lung filed Ext: no edema , bruises on skin ASSESSMENT AND PLAN: 82 y/o man with h/o UTIS, pseudomonas colonization, depression , and otehr medical problems who presented after a fall 1- Volume depletion: PO intake improved - try oral hydration . DC IVF 2- Asymptomatic Pyuria. U cx with no growth . 3- EKG abnormality: - Appreciate Dr. Fitzpatrick Help. repeat EKG with sinus rhythm with frequent PVCs - Cont cardizem in place of BB. 4-CKD III: Cr at base line. 5- Depression, no SI. - cont remeron - off celexa and trazodone. 6-Thrush: Nystatin swish and swallow 7- HTN: - cont cardizem - Add norvasc 8- constipation: add stool softners DVT PX PT eval for possible SNF placement
[2017-10-11] MEDS: MIRTAZAPINE 30 MG TABLET (FP) PO SCH (21:07)
[2017-10-11] MEDS: LATANOPROST 0.005% OPHTH SOLN 2.5ML BOTTLE OU SCH (21:07)
[2017-10-11] MEDS: MELATONIN 1 MG TABLET PO SCH (23:05)
[2017-10-12] MEDS: HEPARIN NA (PORCINE) 5,000 UNITS/ML 1ML VIAL SQ SCH ×3 (05:37→21:20)
[2017-10-12] MEDS: NYSTATIN 500,000 UNITS/5 ML SUSPENSION PO SCH ×4 (05:37→23:45)
[2017-10-12] MEDS: TAMSULOSIN HCL 0.4 MG CAP.ER.24H (FP) PO SCH (09:01)
[2017-10-12] MEDS ORDERED: PT OWN MED DRAWER 7, Y5N ONE ×3 (10:00→20:30)
[2017-10-12] MEDS: ASPIRIN 81 MG CHEWABLE TABLETS PO SCH (10:02)
[2017-10-12] MEDS: amLODIPine BESYLATE 5 MG TABLET (FP) PO SCH (10:02)
[2017-10-12 10:03] LABS: CHLORIDE 111 mmol/L (98-107); POTASSIUM 3.9 mmol/L (3.5-5.1); SODIUM 142 mmol/L (136-145)
[2017-10-12] MEDS: BICALUTAMIDE 50 MG TABLET (FP) PO SCH (10:03)
[2017-10-12 10:08] LABS: ANION GAP 10 (8-16); BLOOD UREA NITROGEN 21 mg/dL (7-18); CALCIUM 8.7 mg/dL (8.5-10.1); CO2 21 mmol/L (21-32); CREATININE 1.8 mg/dL (0.7-1.3); GLUCOSE,RANDOM 114 mg/dL (74-106)
[2017-10-12] MEDS: DOCUSATE SODIUM 100 MG CAPSULE (FP) PO PRN ×2 (15:33→21:25)
--- NOTE | 2017-10-12 19:11 | PN ---
Teaching Attending Note Name of Resident: Elvin Monet ATTENDING PHYSICIAN STATEMENT I saw and evaluated the patient. I reviewed the resident's note and discussed the case with the resident. I agree with the resident's findings and plan as documented. SUBJECTIVE: No fever or chills, denies visual hallucinations , still feels depressed . reports improvement in his appetite today OBJECTIVE: NAD, awake, alert, cooperative. MMM. CV: RRR. Lungs: CTAB Ext: no edema , bruises on skin ASSESSMENT AND PLAN: 82 y/o man with h/o UTIS, pseudomonas colonization, depression , and otehr medical problems who presented after a fall 1- Volume depletion: PO intake improved - due to slight bump in Cr , resume his IVF 2- Asymptomatic Pyuria. U cx with no growth . 3- EKG abnormality: - Appreciate Dr. Fitzpatrick Help. repeat EKG with sinus rhythm with frequent PVCs - Cont cardizem in place of BB. 4-CKD III: Cr at base line. 5- Depression, no SI. - cont remeron - off celexa and trazodone. 6-Thrush: Nystatin swish and swallow 7- HTN: with hypertensive urgency in house - cont cardizem - cont norvasc , added here 8- Constipation: stool softeners DVT PX ASSESSMENT AND PLAN:
[2017-10-12] MEDS: SODIUM CHLORIDE 1,000 ML IV SCH (19:49)
[2017-10-12] MEDS: MELATONIN 1 MG TABLET PO SCH (21:18)
[2017-10-12] MEDS: MIRTAZAPINE 30 MG TABLET (FP) PO SCH (21:19)
[2017-10-12] MEDS: TIMOLOL 0.5% OPHTHALMIC SOL 5 ML BOTTLE OU SCH (21:19)
[2017-10-12] MEDS: BRIMONIDINE TARTRATE 0.2% OPHTHALMIC 5 ML BOTTLE OU SCH (21:20)
[2017-10-12] MEDS: LATANOPROST 0.005% OPHTH SOLN 2.5ML BOTTLE OU SCH (21:20)
[2017-10-12] MEDS ORDERED: PATIENT'S OWN MEDICATION (NON-FORMULARY) (Brimonidine Tartrate/Timolol [Combigan 0.2%-0.5% OU SCH (22:00)
--- NOTE | 2017-10-12 22:07 | PN ---
Physical Exam: SUBJECTIVE: Patient seen and examined Pt still reports poor appetite and feeling depressed. He denies SOB, chest pain , abdominal pain, n/v/d/c, dysuria, and arm pain. OBJECTIVE: Vital Signs Period Temp Pulse Resp BP Sys/Trejo Pulse Ox Last 24 Hr 97.3 F-98.4 F 77-100 20-20 76-136/52-92 98-98 GENERAL: elderly disheveled male, lying in bed, in NAD, AAOx2 (name, time) HEENT: NC, AT NECK: Trachea midline, full range of motion, supple. LUNGS: CTAB HEART: irregularly irregular ABDOMEN: Soft, nontender, nondistended, normoactive bowel sounds, no guarding, no rebound, no hepatosplenomegaly, no masses. EXTREMITIES: 2+ pulses, warm, well-perfused, no edema. NEUROLOGICAL: Cranial nerves II through XII grossly intact. Normal speech. strength and sensory function intact PSYCH: depressed mood and affect SKIN: bruised over left forearm Laboratory Results - last 24 hr 10/12/17 08:11 Sodium 142 Potassium 3.9 Chloride 111 H Carbon Dioxide 21 Anion Gap 10 BUN 21 H Creatinine 1.8 H Random Glucose 114 H Calcium 8.7 Active Medications Generic Name Dose Route Start Last Admin Trade Name Freq PRN Reason Stop Dose Admin Amlodipine Besylate 5 mg 10/10/17 16:30 10/12/17 10:02 Norvasc - PO 5 mg DAILY GEE Administration Aspirin 81 mg 10/09/17 10:00 10/12/17 10:02 Asa - PO 81 mg DAILY GEE Administration Bicalutamide 50 mg 10/09/17 10:00 10/12/17 10:03 Casodex - PO 50 mg DAILY GEE Administration Brimonidine Tartrate 1 drop 10/12/17 22:00 10/12/17 21:20 Alphagan 0.2% - OU 1 drop BID GEE Administration Diltiazem HCl 180 mg 10/09/17 10:00 10/12/17 10:02 Cardizem Cd - PO 180 mg DAILY GEE Administration Docusate Sodium 100 mg 10/11/17 11:51 10/12/17 21:25 Colace - PO 100 mg BID PRN Administration CONSTIPATION Heparin Sodium (Porcine) 5,000 unit 10/08/17 06:00 10/12/17 21:20 Heparin - SQ 5,000 unit TID GEE Administration Sodium Chloride 1,000 mls @ 83 mls/hr 10/12/17 19:15 10/12/17 19:49 Normal Saline - IV 83 mls/hr ASDIR GEE Administration Latanoprost 1 drop 10/08/17 22:00 10/12/17 21:20 Xalatan 0.005% Eye Drops - OU 1 drop HS GEE Administration Melatonin 3 mg 10/11/17 21:00 10/12/17 21:18 Melatonin PO 3 mg HS@2100 GEE Administration Mirtazapine 30 mg 10/08/17 22:00 10/12/17 21:19 Remeron - PO 30 mg HS GEE Administration Nystatin 500,000 units 10/08/17 18:00 10/12/17 17:55 Nystatin Oral Suspension - PO 500,000 units Q6HPO GEE Administration Senna 2 tab 10/11/17 11:51 10/12/17 21:19 Senna - PO 2 tab HS PRN Administration CONSTIPATION Tamsulosin HCl 0.4 mg 10/09/17 08:30 10/12/17 09:01 Flomax - PO 0.4 mg DAILY@0830 GEE Administration Timolol Maleate 1 drop 10/12/17 22:00 10/12/17 21:19 Timoptic 0.5% OU 1 drop BID GEE Administration ASSESSMENT/PLAN: 82M w/ hx of recurrent UTIs, pseudomonas colonization, MDD, HTN, HLD, DM, CKD, multiple falls, and cognitive decline who presented s/p fall 2/2 "legs giving out." #mechanical fall -likely 2/2 MDD -pt is 4-5/5 strength in all muscle groups -head CT: negative #low grade pyuria -unlikely UTI -Ucx: final- no growth -per ID, no abx #Wandering pace maker on EKG - asymptomatic, no tachycardia. unclear etiology - echo in 02/24 with no significant findings - continue to monitor #CKD III -Cr at baseline #Depression -continue remeron per psych #Thrush -continue nystatin swish and swallow #HTN -continue home toprol #FEN/ppx -NS @ 82 -electrolytes wnl -diabetic diet -no GI ppx indicated -heparin 5000U TID #Dispo: -awaiting placement in SNF Case discussed with attending, Dr. Randolph. -Elvin Monet MD PGY1 Visit type - Emergency Visit Emergency Visit: Yes ED Registration Date: 10/08/17 Care time: The patient presented to the Emergency Department on the above date and was hospitalized for further evaluation of their emergent condition. - New Patient This patient is new to me today: No - Critical Care Critical Care patient: No
[2017-10-13] MEDS: NYSTATIN 500,000 UNITS/5 ML SUSPENSION PO SCH ×3 (05:25→17:28)
[2017-10-13] MEDS: HEPARIN NA (PORCINE) 5,000 UNITS/ML 1ML VIAL SQ SCH ×2 (05:25→14:03)
[2017-10-13] MEDS: TAMSULOSIN HCL 0.4 MG CAP.ER.24H (FP) PO SCH (08:08)
[2017-10-13] MEDS: SODIUM CHLORIDE 1,000 ML IV SCH (08:12)
[2017-10-13] MEDS ORDERED: PT OWN MED DRAWER 7, Y5N ONE ×2 (09:19→10:01)
[2017-10-13] MEDS: amLODIPine BESYLATE 5 MG TABLET (FP) PO SCH (10:08)
[2017-10-13] MEDS: ASPIRIN 81 MG CHEWABLE TABLETS PO SCH (10:08)
[2017-10-13] MEDS: BRIMONIDINE TARTRATE 0.2% OPHTHALMIC 5 ML BOTTLE OU SCH (10:08)
[2017-10-13] MEDS: TIMOLOL 0.5% OPHTHALMIC SOL 5 ML BOTTLE OU SCH (10:08)
[2017-10-13] MEDS: BICALUTAMIDE 50 MG TABLET (FP) PO SCH (10:09)
--- NOTE | 2017-10-13 15:26 | PN ---
Teaching Attending Note Name of Resident: Elvin Monet ATTENDING PHYSICIAN STATEMENT I saw and evaluated the patient. I reviewed the resident's note and discussed the case with the resident. I agree with the resident's findings and plan as documented. SUBJECTIVE: Patient is c/o of not having bowel movement. No fever or chills, no shortness of breath. OBJECTIVE: Vital Signs Temperature 97.8 F 10/13/17 09:00 Pulse Rate 98 H 10/13/17 09:00 Respiratory Rate 20 10/13/17 09:00 Blood Pressure 105/74 10/13/17 09:00 O2 Sat by Pulse Oximetry (%) 98 10/13/17 09:00 PE: per resident's note CBCD WBC 6.4 K/mm3 (4.0-10.0) 10/10/17 07:17 RBC 4.38 M/mm3 (4.00-5.60) 10/10/17 07:17 Hgb 12.8 GM/dL (11.7-16.9) 10/10/17 07:17 Hct 40.2 % (35.4-49) 10/10/17 07:17 MCV 91.9 fl (80-96) 10/10/17 07:17 MCHC 31.9 g/dl (32.0-35.9) L 10/10/17 07:17 RDW 14.4 % (11.9-15.9) 10/10/17 07:17 Plt Count 179 K/MM3 (134-434) 10/10/17 07:17 MPV 8.4 fl (7.5-11.1) 10/10/17 07:17 CMP Sodium 142 mmol/L (136-145) 10/12/17 08:11 Potassium 3.9 mmol/L (3.5-5.1) 10/12/17 08:11 Chloride 111 mmol/L (98-107) H 10/12/17 08:11 Carbon Dioxide 21 mmol/L (21-32) 10/12/17 08:11 Anion Gap 10 (8-16) 10/12/17 08:11 BUN 21 mg/dL (7-18) H 10/12/17 08:11 Creatinine 1.8 mg/dL (0.7-1.3) H 10/12/17 08:11 Creat Clearance w eGFR 36.21 (>60) 12/29/17 06:20 Random Glucose 114 mg/dL (74-106) H 10/12/17 08:11 Calcium 8.7 mg/dL (8.5-10.1) 10/12/17 08:11 Total Bilirubin 1.5 mg/dL (0.2-1.0) H 10/08/17 06:20 AST 19 U/L (15-37) D 10/08/17 06:20 ALT 16 U/L (12-78) 10/08/17 06:20 Alkaline Phosphatase 101 U/L (45-117) 10/08/17 06:20 Total Protein 6.3 g/dl (6.4-8.2) L 10/08/17 06:20 Albumin 3.1 g/dl (3.4-5.0) L 10/08/17 06:20 CARDIAC ENZYMES Creatine Kinase 204 IU/L (39-308) 10/08/17 12:16 Troponin I 0.12 ng/ml (0.00-0.05) H 10/08/17 06:20 Current Medications Generic Name Dose Route Start Last Admin Trade Name Freq PRN Reason Stop Dose Admin Amlodipine Besylate 5 mg 10/10/17 16:30 10/13/17 10:08 Norvasc - PO 5 mg DAILY GEE Administration Aspirin 81 mg 10/09/17 10:00 10/13/17 10:08 Asa - PO 81 mg DAILY GEE Administration Bicalutamide 50 mg 10/09/17 10:00 10/13/17 10:09 Casodex - PO 50 mg DAILY GEE Administration Brimonidine Tartrate 1 drop 10/12/17 22:00 10/13/17 10:08 Alphagan 0.2% - OU 1 drop BID GEE Administration Diltiazem HCl 180 mg 10/09/17 10:00 10/13/17 10:08 Cardizem Cd - PO 180 mg DAILY GEE Administration Docusate Sodium 100 mg 10/11/17 11:51 10/12/17 21:25 Colace - PO 100 mg BID PRN Administration CONSTIPATION Heparin Sodium (Porcine) 5,000 unit 10/08/17 06:00 10/13/17 14:03 Heparin - SQ 5,000 unit TID GEE Administration Sodium Chloride 1,000 mls @ 83 mls/hr 10/12/17 19:15 10/13/17 08:12 Normal Saline - IV 83 mls/hr ASDIR GEE Administration Latanoprost 1 drop 10/08/17 22:00 10/12/17 21:20 Xalatan 0.005% Eye Drops - OU 1 drop HS GEE Administration Melatonin 3 mg 10/11/17 21:00 10/12/17 21:18 Melatonin PO 3 mg HS@2100 GEE Administration Mirtazapine 30 mg 10/08/17 22:00 10/12/17 21:19 Remeron - PO 30 mg HS GEE Administration Nystatin 500,000 units 10/08/17 18:00 10/13/17 12:04 Nystatin Oral Suspension - PO 500,000 units Q6HPO GEE Administration Senna 2 tab 10/11/17 11:51 10/12/17 21:19 Senna - PO 2 tab HS PRN Administration CONSTIPATION Tamsulosin HCl 0.4 mg 10/09/17 08:30 10/13/17 08:08 Flomax - PO 0.4 mg DAILY@0830 GEE Administration Timolol Maleate 1 drop 10/12/17 22:00 10/13/17 10:08 Timoptic 0.5% OU 1 drop BID GEE Administration Home Medications Medication Instructions Recorded Aspirin [Aspirin EC] 81 mg PO ASDIR 02/05/15 Metoprolol Succinate [Toprol XL -] 100 mg PO DAILY 02/05/15 Simvastatin 10 mg PO HS 02/05/15 Bicalutamide 50 mg PO DAILY 02/05/17 Citalopram Hydrobromide 10 mg PO HS 10/07/17 [Citalopram HBr] Latanoprost 0.005% Eye Drops 1 drop HS 10/08/17 [Xalatan 0.005% Eye Drops -] Tamsulosin HCl [Flomax] 0.4 mg PO DAILY 10/08/17 Trazodone HCl 50 mg PO DAILY 10/08/17 Brimonidine Tartrate/Timolol 1 drop OU HS 10/12/17 [Combigan 0.2%-0.5% Eye Drops] Urine Test Results Urine Color Yellow 10/08/17 00:06 Urine Appearance Cloudy 10/08/17 00:06 Urine pH 7.0 (5.0-8.0) 10/08/17 00:06 Ur Specific [place] 1.016 (1.001-1.035) 10/08/17 00:06 Urine Protein 1+ (NEGATIVE) H 10/08/17 00:06 Urine Glucose (UA) Negative (NEGATIVE) 10/08/17 00:06 Urine Ketones Negative (NEGATIVE) 10/08/17 00:06 Urine Blood 2+ (NEGATIVE) H 10/08/17 00:06 Urine Nitrite Negative (NEGATIVE) 10/08/17 00:06 Urine Bilirubin Negative (NEGATIVE) 10/08/17 00:06 Ur Leukocyte Esterase Negative (NEGATIVE) 10/08/17 00:06 Ur Epithelial Cells Rare /HPF (FEW) 10/08/17 00:06 Urine Mucus Rare 10/08/17 00:06 Microbiology 10/08/17 10:45 Blood - Peripheral Venous Blood Culture - Final NO GROWTH AFTER 5 DAYS INCUBATION 10/08/17 10:45 Blood - Peripheral Venous Blood Culture - Final NO GROWTH AFTER 5 DAYS INCUBATION 10/08/17 00:06 Urine - Urine Clean Catch Urine Culture - Final NO GROWTH OBTAINED ASSESSMENT AND PLAN: Patient is a 82M w/ hx of recurrent UTIs, pseudomonas colonization, MDD, HTN, HLD, DM, CKD, multiple falls, and cognitive decline who presented s/p fall as per patient "legs giving out." # Acute constipation ordered GLycerin [place], and mineral enemas, continue stool softener # Acute dehydration on IVF, eating better now. continue # Mechanical fall most likely due to dehydration; head CT: negative # Asymptomatic Pyuria. U cx with no growth , No Abx needed # EKG abnormality: On cardizem in place of BB. Cardio Dr. Fitzpatrick appreciatd . repeat EKG with sinus rhythm with frequent PVCs , echo in 02/24 with no significant findings , continue aspirin. #CKD III: Cr at base line. (1.8) will repeat the level in a m # Depression, On remeron off celexa and trazodone. #Thrush: Nystatin swish and swallow # HTN: On cardizem ,will discontinue norvasc ( since patient on 2 CCB) #Thrush continue nystatin swish and swallow DVT PX: Heparin sq
[2017-10-13 15:28] VITALS: BP 131/80; PULSE 78; TEMP 98.5
[2017-10-13] MEDS ORDERED: GLYCERIN 1 RECTAL SUPPOSITORY, ADULT PR ONE (15:59)
[2017-10-13] MEDS ORDERED: MINERAL OIL ENEMA 133 ML ENEMA PR ONE (16:00)
--- NOTE | 2017-10-13 16:09 | PN ---
<Elvin Monet - Last Filed: 10/13/17 16:10> Physical Exam: SUBJECTIVE: Patient seen and examined Pt still reports poor appetite feeling depressed and lousy. He states that he is very uncomfortable in bed. He denies SOB, chest pain, abdominal pain, n/v/d/c , dysuria, and arm pain. OBJECTIVE: Vital Signs Period Temp Pulse Resp BP Sys/Trejo Pulse Ox Last 24 Hr 97.8 F-98.5 F 78-98 19-20 105-140/64-80 98-98 GENERAL: elderly disheveled male, lying in bed, in NAD, AAOx3 HEENT: NC, AT NECK: Trachea midline, full range of motion, supple. LUNGS: CTAB HEART: irregularly irregular ABDOMEN: Soft, nontender, nondistended, normoactive bowel sounds, no guarding, no rebound, no hepatosplenomegaly, no masses. EXTREMITIES: 2+ pulses, warm, well-perfused, no edema. NEUROLOGICAL: Cranial nerves II through XII grossly intact. Normal speech. strength and sensory function intact PSYCH: depressed mood and affect SKIN: bruised over left forearm Active Medications Generic Name Dose Route Start Last Admin Trade Name Freq PRN Reason Stop Dose Admin Amlodipine Besylate 5 mg 10/10/17 16:30 10/13/17 10:08 Norvasc - PO 5 mg DAILY GEE Administration Aspirin 81 mg 10/09/17 10:00 10/13/17 10:08 Asa - PO 81 mg DAILY GEE Administration Bicalutamide 50 mg 10/09/17 10:00 10/13/17 10:09 Casodex - PO 50 mg DAILY GEE Administration Brimonidine Tartrate 1 drop 10/12/17 22:00 10/13/17 10:08 Alphagan 0.2% - OU 1 drop BID GEE Administration Diltiazem HCl 180 mg 10/09/17 10:00 10/13/17 10:08 Cardizem Cd - PO 180 mg DAILY GEE Administration Docusate Sodium 100 mg 10/11/17 11:51 10/12/17 21:25 Colace - PO 100 mg BID PRN Administration CONSTIPATION Glycerin 2 each 10/13/17 15:59 Glycerin Suppository Adult - [place] 10/13/17 16:00 ONCE ONE Heparin Sodium (Porcine) 5,000 unit 10/08/17 06:00 01/03/18 14:03 Heparin - SQ 5,000 unit TID GEE Administration Sodium Chloride 1,000 mls @ 83 mls/hr 10/12/17 19:15 10/13/17 08:12 Normal Saline - IV 83 mls/hr ASDIR GEE Administration Latanoprost 1 drop 10/08/17 22:00 10/12/17 21:20 Xalatan 0.005% Eye Drops - OU 1 drop HS GEE Administration Melatonin 3 mg 10/11/17 21:00 10/12/17 21:18 Melatonin PO 3 mg HS@2100 GEE Administration Mineral Oil 133 ml 10/13/17 16:00 Fleet Mineral Oil Rectal Enema - [place] 10/13/17 16:01 NOW ONE Mirtazapine 30 mg 10/08/17 22:00 10/12/17 21:19 Remeron - PO 30 mg HS GEE Administration Nystatin 500,000 units 10/08/17 18:00 10/13/17 12:04 Nystatin Oral Suspension - PO 500,000 units Q6HPO GEE Administration Senna 2 tab 10/11/17 11:51 10/12/17 21:19 Senna - PO 2 tab HS PRN Administration CONSTIPATION Tamsulosin HCl 0.4 mg 10/09/17 08:30 10/13/17 08:08 Flomax - PO 0.4 mg DAILY@0830 GEE Administration Timolol Maleate 1 drop 10/12/17 22:00 10/13/17 10:08 Timoptic 0.5% OU 1 drop BID GEE Administration ASSESSMENT/PLAN: 82M w/ hx of recurrent UTIs, pseudomonas colonization, MDD, HTN, HLD, DM, CKD, multiple falls, and cognitive decline who presented s/p fall 2/2 "legs giving out." #mechanical fall -likely 2/2 MDD -pt is 4-5/5 strength in all muscle groups -head CT: negative #low grade pyuria -unlikely UTI -Ucx: final- no growth -per ID, no abx #Wandering pace maker on EKG - asymptomatic, no tachycardia. unclear etiology - echo in 02/24 with no significant findings - continue to monitor #CKD III -Cr at baseline #Depression -continue remeron per psych #Thrush -continue nystatin swish and swallow #HTN -continue home toprol #FEN/ppx -NS @ 82 -electrolytes wnl -diabetic diet -no GI ppx indicated -heparin 5000U TID #Dispo: -awaiting placement in SNF Case discussed with attending, Dr. Peng. -Elvin Monet MD PGY1 Visit type - Emergency Visit Emergency Visit: Yes ED Registration Date: 10/08/17 Care time: The patient presented to the Emergency Department on the above date and was hospitalized for further evaluation of their emergent condition. - New Patient This patient is new to me today: No - Critical Care Critical Care patient: No <Gricelda Peng - Last Filed: 10/13/17 16:18> Physical Exam: SUBJECTIVE: Patient seen and examined OBJECTIVE: Vital Signs Period Temp Pulse Resp BP Sys/Trejo Pulse Ox Last 24 Hr 97.8 F-98.5 F 78-98 19-20 105-140/64-80 98-98 Active Medications Generic Name Dose Route Start Last Admin Trade Name Freq PRN Reason Stop Dose Admin Amlodipine Besylate 5 mg 10/10/17 16:30 10/13/17 10:08 Norvasc - PO 5 mg DAILY GEE Administration Aspirin 81 mg 10/09/17 10:00 10/13/17 10:08 Asa - PO 81 mg DAILY GEE Administration Bicalutamide 50 mg 10/09/17 10:00 10/13/17 10:09 Casodex - PO 50 mg DAILY GEE Administration Brimonidine Tartrate 1 drop 10/12/17 22:00 10/13/17 10:08 Alphagan 0.2% - OU 1 drop BID GEE Administration Diltiazem HCl 180 mg 10/09/17 10:00 10/13/17 10:08 Cardizem Cd - PO 180 mg DAILY GEE Administration Docusate Sodium 100 mg 10/11/17 11:51 10/12/17 21:25 Colace - PO 100 mg BID PRN Administration CONSTIPATION Heparin Sodium (Porcine) 5,000 unit 10/08/17 06:00 10/13/17 14:03 Heparin - SQ 5,000 unit TID GEE Administration Sodium Chloride 1,000 mls @ 83 mls/hr 10/12/17 19:15 10/13/17 08:12 Normal Saline - IV 83 mls/hr ASDIR GEE Administration Latanoprost 1 drop 10/08/17 22:00 10/12/17 21:20 Xalatan 0.005% Eye Drops - OU 1 drop HS GEE Administration Melatonin 3 mg 10/11/17 21:00 10/12/17 21:18 Melatonin PO 3 mg HS@2100 GEE Administration Mirtazapine 30 mg 10/08/17 22:00 10/12/17 21:19 Remeron - PO 30 mg HS GEE Administration Nystatin 500,000 units 10/08/17 18:00 10/13/17 12:04 Nystatin Oral Suspension - PO 500,000 units Q6HPO GEE Administration Senna 2 tab 10/11/17 11:51 10/12/17 21:19 Senna - PO 2 tab HS PRN Administration CONSTIPATION Tamsulosin HCl 0.4 mg 10/09/17 08:30 10/13/17 08:08 Flomax - PO 0.4 mg DAILY@0830 GEE Administration Timolol Maleate 1 drop 10/12/17 22:00 10/13/17 10:08 Timoptic 0.5% OU 1 drop BID GEE Administration ASSESSMENT/PLAN: Correction: patient is not on BB; Toprol xl.
--- NOTE | 2017-10-13 16:50 | DS ---
Physical Exam: SUBJECTIVE: Patient seen and examined Pt still reports poor appetite feeling depressed and lousy. He states that he is very uncomfortable in bed. He denies SOB, chest pain, abdominal pain, n/v/d/c , dysuria, and arm pain. OBJECTIVE: Vital Signs Period Temp Pulse Resp BP Sys/Trejo Pulse Ox Last 24 Hr 97.8 F-98.5 F 78-98 19-20 105-140/64-80 98-98 PHYSICAL EXAM GENERAL: elderly disheveled male, lying in bed, in NAD, AAOx3 HEENT: NC, AT NECK: Trachea midline, full range of motion, supple. LUNGS: CTAB HEART: irregularly irregular ABDOMEN: Soft, nontender, nondistended, normoactive bowel sounds, no guarding, no rebound, no hepatosplenomegaly, no masses. EXTREMITIES: 2+ pulses, warm, well-perfused, no edema. NEUROLOGICAL: Cranial nerves II through XII grossly intact. Normal speech. strength and sensory function intact PSYCH: depressed mood and affect SKIN: bruised over left forearm LABS Laboratory Tests 10/07/17 10/07/17 10/07/17 22:40 22:43 22:43 WBC 6.7 Corrected WBC (auto) RBC 4.31 Hgb 12.9 Hct 39.6 MCV 91.9 MCH 30.0 MCHC 32.7 RDW 14.9 Plt Count 186 MPV 9.4 Neutrophils % 75.9 Lymphocytes % 15.5 D Monocytes % 8.2 D Eosinophils % 0.1 Basophils % 0.3 Nucleated RBC % Platelet Estimate Platelet Comment PT with INR 10.60 INR 0.94 Sodium 139 Potassium 3.9 Chloride 101 Carbon Dioxide 24 Anion Gap 14 BUN 44 H D Creatinine 2.0 H Creat Clearance w eGFR 32.07 Random Glucose 137 H Lactic Acid Calcium 9.1 Phosphorus Magnesium 2.6 H Total Bilirubin 1.3 H D AST 25 D ALT 16 D Alkaline Phosphatase 105 Creatine Kinase 383 H Creatine Kinase Index 0.6 CK-MB (CK-2) 2.468 Troponin I 0.13 H D Total Protein 6.7 Albumin 3.5 Triglycerides Cholesterol Total LDL Cholesterol HDL Cholesterol Urine Color Urine Appearance Urine pH Ur Specific Moore Urine Protein Urine Glucose (UA) Urine Ketones Urine Blood Urine Nitrite Urine Bilirubin Urine Urobilinogen Ur Leukocyte Esterase Urine WBC (Auto) Urine RBC (Auto) Ur Epithelial Cells Urine Mucus Ur Random Sodium Ur Random Potassium Ur Random Chloride 10/07/17 10/08/17 10/08/17 22:43 00:06 01:22 WBC Corrected WBC (auto) RBC Hgb Hct MCV MCH MCHC RDW Plt Count MPV Neutrophils % Lymphocytes % Monocytes % Eosinophils % Basophils % Nucleated RBC % Platelet Estimate Platelet Comment PT with INR INR Sodium Potassium Chloride Carbon Dioxide Anion Gap BUN Creatinine Creat Clearance w eGFR Random Glucose Lactic Acid 2.4 H* Calcium Phosphorus Magnesium Total Bilirubin AST ALT Alkaline Phosphatase Creatine Kinase Creatine Kinase Index CK-MB (CK-2) Troponin I Total Protein Albumin Triglycerides Cholesterol Total LDL Cholesterol HDL Cholesterol Urine Color Yellow Urine Appearance Cloudy Urine pH 7.0 Ur Specific Moore 1.016 Urine Protein 1+ H Urine Glucose (UA) Negative Urine Ketones Negative Urine Blood 2+ H Urine Nitrite Negative Urine Bilirubin Negative Urine Urobilinogen 2.0 Ur Leukocyte Esterase Negative Urine WBC (Auto) 10 Urine RBC (Auto) 15 Ur Epithelial Cells Rare Urine Mucus Rare Ur Random Sodium 38 Ur Random Potassium 32.4 Ur Random Chloride 38 10/08/17 10/08/17 10/08/17 01:22 06:20 06:20 WBC Cancelled Corrected WBC (auto) Cancelled RBC Cancelled Hgb Cancelled Hct Cancelled MCV Cancelled MCH Cancelled MCHC Cancelled RDW Cancelled Plt Count Cancelled MPV Cancelled Neutrophils % Cancelled Lymphocytes % Cancelled Monocytes % Cancelled Eosinophils % Cancelled Basophils % Cancelled Nucleated RBC % Cancelled Platelet Estimate Cancelled Platelet Comment Cancelled PT with INR INR Sodium 138 Potassium 3.4 L Chloride 103 Carbon Dioxide 27 Anion Gap 8 BUN 36 H Creatinine 1.8 H Creat Clearance w eGFR 36.21 Random Glucose 145 H Lactic Acid 1.3 Calcium 8.3 L Phosphorus 3.4 Magnesium 2.5 H Total Bilirubin 1.5 H AST 19 D ALT 16 Alkaline Phosphatase 101 Creatine Kinase Creatine Kinase Index CK-MB (CK-2) Troponin I Total Protein 6.3 L Albumin 3.1 L Triglycerides Cholesterol Total LDL Cholesterol HDL Cholesterol Urine Color Urine Appearance Urine pH Ur Specific Moore Urine Protein Urine Glucose (UA) Urine Ketones Urine Blood Urine Nitrite Urine Bilirubin Urine Urobilinogen Ur Leukocyte Esterase Urine WBC (Auto) Urine RBC (Auto) Ur Epithelial Cells Urine Mucus Ur Random Sodium Ur Random Potassium Ur Random Chloride 12/29/17 12/29/17 12/29/17 06:20 07:15 12:16 WBC 6.8 Corrected WBC (auto) RBC 4.26 Hgb 12.7 Hct 39.0 MCV 91.5 MCH 29.7 MCHC 32.5 RDW 14.3 Plt Count 165 MPV 8.7 Neutrophils % 71.7 Lymphocytes % 19.2 D Monocytes % 7.7 Eosinophils % 0.7 D Basophils % 0.7 Nucleated RBC % Platelet Estimate Platelet Comment PT with INR INR Sodium Potassium Chloride Carbon Dioxide Anion Gap BUN Creatinine Creat Clearance w eGFR Random Glucose Lactic Acid Calcium Phosphorus Magnesium Total Bilirubin AST ALT Alkaline Phosphatase Creatine Kinase Creatine Kinase Index CK-MB (CK-2) Troponin I 0.12 H Total Protein Albumin Triglycerides 174 H Cholesterol 127 Total LDL Cholesterol 66 HDL Cholesterol 45 Urine Color Urine Appearance Urine pH Ur Specific Moore Urine Protein Urine Glucose (UA) Urine Ketones Urine Blood Urine Nitrite Urine Bilirubin Urine Urobilinogen Ur Leukocyte Esterase Urine WBC (Auto) Urine RBC (Auto) Ur Epithelial Cells Urine Mucus Ur Random Sodium Ur Random Potassium Ur Random Chloride 10/08/17 10/09/17 10/09/17 12:16 07:45 07:45 WBC 6.2 Corrected WBC (auto) RBC 4.38 Hgb 13.0 Hct 40.1 MCV 91.7 MCH 29.6 MCHC 32.3 RDW 14.6 Plt Count 189 MPV 8.8 Neutrophils % Lymphocytes % Monocytes % Eosinophils % Basophils % Nucleated RBC % Platelet Estimate Platelet Comment PT with INR INR Sodium 143 Potassium 3.5 Chloride 106 Carbon Dioxide 24 Anion Gap 13 BUN 22 H D Creatinine 1.5 H Creat Clearance w eGFR Random Glucose 118 H Lactic Acid Calcium 8.8 Phosphorus Magnesium Total Bilirubin AST ALT Alkaline Phosphatase Creatine Kinase 204 Creatine Kinase Index 0.6 CK-MB (CK-2) 1.423 Troponin I Total Protein Albumin Triglycerides Cholesterol Total LDL Cholesterol HDL Cholesterol Urine Color Urine Appearance Urine pH Ur Specific Moore Urine Protein Urine Glucose (UA) Urine Ketones Urine Blood Urine Nitrite Urine Bilirubin Urine Urobilinogen Ur Leukocyte Esterase Urine WBC (Auto) Urine RBC (Auto) Ur Epithelial Cells Urine Mucus Ur Random Sodium Ur Random Potassium Ur Random Chloride 10/10/17 10/10/17 10/12/17 07:17 07:17 08:11 WBC 6.4 Corrected WBC (auto) RBC 4.38 Hgb 12.8 Hct 40.2 MCV 91.9 MCH 29.3 MCHC 31.9 L RDW 14.4 Plt Count 179 MPV 8.4 Neutrophils % 70.3 Lymphocytes % 22.3 Monocytes % 6.2 Eosinophils % 0.5 Basophils % 0.7 Nucleated RBC % Platelet Estimate Platelet Comment PT with INR INR Sodium 140 142 Potassium 3.9 3.9 Chloride 108 H 111 H Carbon Dioxide 24 21 Anion Gap 8 10 BUN 22 H 21 H Creatinine 1.6 H 1.8 H Creat Clearance w eGFR Random Glucose 108 H 114 H Lactic Acid Calcium 8.4 L 8.7 Phosphorus Magnesium Total Bilirubin AST ALT Alkaline Phosphatase Creatine Kinase Creatine Kinase Index CK-MB (CK-2) Troponin I Total Protein Albumin Triglycerides Cholesterol Total LDL Cholesterol HDL Cholesterol Urine Color Urine Appearance Urine pH Ur Specific Moore Urine Protein Urine Glucose (UA) Urine Ketones Urine Blood Urine Nitrite Urine Bilirubin Urine Urobilinogen Ur Leukocyte Esterase Urine WBC (Auto) Urine RBC (Auto) Ur Epithelial Cells Urine Mucus Ur Random Sodium Ur Random Potassium Ur Random Chloride CT Head: no acute bleeding or fracture HOSPITAL COURSE: Date of Admission:10/08/17 Date of Discharge: 10/13/17 82M w/ hx of recurrent UTIs, pseudomonas colonization, MDD, HTN, HLD, DM, CKD, multiple falls, and cognitive decline who presented s/p fall 2/2 "legs giving out." His fall was likely due to his MDD as his neurological exam was grossly normal. Head CT was normal. Per daughter, pt has been increasingly depressed and unable to take care of himself at home anymore. Pt was seen by psych who discontinued his celexan and trazodone, and started him on remeron. He was also found to have thrush in his oropharynx which was treated with nystatin. 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 He was seen by cardiology who discontinued his toprol due to possible mood side effects, and started him on cardizem and norvasc. Pt was evaluated by physical therapy, and he was unable to walk more than 5 feet. Today, pt has normal vitals, benign physical exam, normal labs, and is stable for discharge to a SNF. Pt instructed to follow up with his PCP and psychiatrist. -Elvin Monet MD PGY1 Minutes to complete discharge: 36 Discharge Summary Reason For Visit: URINARY TRACT INFECTION,FAILURE TO THRIVE IN ADULT Current Active Problems Abrasion (Acute) Asymptomatic bacteriuria (Acute) Cognitive and behavioral changes (Acute) Failure to thrive in adult (Acute) Multiple falls (Acute) Hyperlipidemia (Chronic) Hypertension (Chronic) Major depressive disorder (Chronic) Urinary retention (Chronic) Condition: Stable - Instructions Diet, Activity, Other Instructions: You presented after falling down. No acute fractures were found. You were seen by psychiatry, and your psychiatric medications were changed. You were also seen and evaluated by physical therapy. Continue taking all previous medications except: 1. Stop taking citalopram and trazodone 2. Start taking remeron 30mg once a day. 3. Stop taking simvastatin 10mg 4. Stop taking toprol for BP 5. Start taking cardizem 180mg once a day for BP. 6. Start taking norvasc 5mg once a day for BP. Follow-ups: 1. Follow up with your PCP within one week. 2. Follow up with psychiatry in one week. If you don't have one, we have referred you to Dr. Soto. If you develop any chest pain, shortness of breath, or any other concerning symptoms, return to the ED. Referrals: Afua Soto MD [Staff Physician] - Ranjit Ferro [Non Staff, Medical] - Disposition: [facility] - Home Medications Comprehensive Discharge Medication List: Ambulatory Orders Aspirin [Aspirin EC] 81 mg PO ASDIR 02/05/15 Bicalutamide 50 mg PO DAILY 02/05/17 Latanoprost 0.005% Eye Drops [Xalatan 0.005% Eye Drops -] 1 drop HS 10/08/17 Tamsulosin HCl [Flomax] 0.4 mg PO DAILY 10/08/17 Brimonidine Tartrate/Timolol [Combigan 0.2%-0.5% Eye Drops] 1 drop OU HS Amlodipine Besylate [Norvasc -] 5 mg PO DAILY tablet 10/13/17 Diltiazem Cd [Cardizem Cd -] 180 mg PO DAILY cap.cd.24h 10/13/17 Mirtazapine [Remeron -] 30 mg PO HS tablet 10/13/17 This patient is new to me today: No Emergency Visit: Yes ED Registration Date: 10/08/17 Care time: The patient presented to the Emergency Department on the above date and was hospitalized for further evaluation of their emergent condition. Critical Care patient: No - Discharge Referral Referred to [facility] Med P.C.: No
[2017-10-13] MEDS: DOCUSATE SODIUM 100 MG CAPSULE (FP) PO PRN (17:26)
== END 2017-10-13 19:23 | DRG 683 ==
LOC: JER 21:24 → JERBED 10-08 00:21 → J6S 10-08 14:23
PROVIDERS: ADMIT Internal Medicine; ATTEND Internal Medicine
DX: N17.9 Acute kidney failure, unspecified (principal); B37.0 Candidal stomatitis; N39.0 Urinary tract infection, site not specified; J98.11 Atelectasis; E86.0 Dehydration; F32.9 Major depressive disorder, single episode, unspecified; N18.3 Chronic kidney disease, stage 3 (moderate); I12.9 Hypertensive chronic kidney disease with stage 1 through stage 4 chronic kidney disease, or unspecified chronic kidney disease; E11.22 Type 2 diabetes mellitus with diabetic chronic kidney disease; K59.00 Constipation, unspecified; F17.210 Nicotine dependence, cigarettes, uncomplicated; R62.7 Adult failure to thrive; R29.6 Repeated falls; E78.5 Hyperlipidemia, unspecified; R33.9 Retention of urine, unspecified; G47.00 Insomnia, unspecified
CPT/HCPCS: 36415; 70450-TC; 71010-TC; 71020-TC; 80048; 80053; 80061; 81003; 81015; 82436; 82550; 82553; 83605; 83721; 83735; 84100; 84133; 84300; 84484; 85025; 85027; 85610; 87040; 87086; 93005; 93010; 97116-GP; 97161-GP; 99284-25; J1644

== ENCOUNTER 2018-05-10 13:28 | Emergency (ER) | payer OTHER ==
[2018-05-10 13:55] VITALS: BP 131/94; PULSE 77; TEMP 97.8; BMI 23.6
--- NOTE | 2018-05-10 14:14 | PDOC ---
History of Present Illness - General Chief Complaint: Injury Stated Complaint: FALL Time Seen by Provider: 05/10/18 14:10 History Source: Patient Exam Limitations: No Limitations - History of Present Illness Initial Comments: 05/10/18 14:19 CHIEF COMPLAINT: Fall HISTORY OF PRESENT ILLNESS: This is an 82-year-old male with 82M recurrent UTIs (pseudomonas colonization), MDD on multiple medications, HTN, HLD, NIDDM, CKD, and multiple falls who presents with his daughter after a fall. He reports that he was getting out of his son-in-law's car today when his leg "gave out" and he fell to the curb, striking his head. He denies LOC. He did not have dizziness, lightheadedness, or any prodrome. He denies any symptoms now other than pain at a laceration lateral to his right eye. He is on ASA 81mg three times per week, no other AC or anti-platelets. The fall was witnessed by his son-in-law. Vital signs on arrival are unremarkable. REVIEW OF SYSTEMS: GENERAL/CONSTITUTIONAL: No fever or chills. No weakness. No weight change. HEAD, EYES, EARS, NOSE AND THROAT: No change in vision. No ear pain or discharge. No sore throat. CARDIOVASCULAR: No chest pain or palpitations. RESPIRATORY: No cough, wheezing, or shortness of breath. GASTROINTESTINAL: No nausea, vomiting, diarrhea or constipation. GENITOURINARY: No dysuria, frequency, or change in urination. MUSCULOSKELETAL: No joint or muscle swelling or pain. No neck or back pain. SKIN: No rash or easy bruising. NEUROLOGIC: No headache, vertigo, loss of consciousness, or loss of sensation. PSYCHIATRIC: Depression, managed with multiple medications. ENDOCRINE: No increased thirst. No abnormal weight change. HEMATOLOGIC/LYMPHATIC: No anemia, easy bleeding, or history of blood clots. ALLERGIC/IMMUNOLOGIC: No hives or skin allergy. No latex allergy. PHYSICAL EXAM: GENERAL: The patient is awake, alert, and fully oriented, in no acute distress. HEAD: 1.5cm irregular laceration lateral to right eye with surrounding abrasion. ENT: Pupils equal, round and reactive to light, extraocular movements intact, sclera anicteric, conjunctiva clear. Neck supple. LUNGS: Clear to auscultation bilaterally. Normal excursion. No respiratory distress or use of accessory muscles. CV: RRR, S1/S2, no MRG. Cap refill < 2 sec. ABDOMEN: Soft, non-distended, non-tender. EXTREMITIES: Normal range of motion. LLE red, swollen, tender, warm. NEUROLOGICAL: Normal speech, normal gait with assistance. CN II-XII grossly intact. PSYCH: Normal mood, normal affect. SKIN: Right tibial abrasion. Right hand abrasion between 3rd and 4th digit. Right elbow abrasion/avulsed skin, oozing blood. Past History - Past Medical History Allergies/Adverse Reactions: Allergies Allergy/AdvReac Type Severity Reaction Status Date / Time No Known Drug Allergies Allergy Verified 05/10/18 13:50 Home Medications: Ambulatory Orders Aspirin [Aspirin EC] 81 mg PO ASDIR 02/05/15 Bicalutamide 50 mg PO DAILY 02/05/17 Tamsulosin HCl [Flomax] 0.4 mg PO DAILY 10/08/17 Mirtazapine [Remeron -] 30 mg PO HS tablet 10/13/17 Anemia: No Asthma: No Cancer: No Cardiac Disorders: No CVA: No COPD: No CHF: No Dementia: No Diabetes: No GI Disorders: No Disorders: No HTN: Yes Hypercholesterolemia: Yes Liver Disease: No Seizures: No Thyroid Disease: No - Surgical History Abdominal Surgery: No Appendectomy: No Cardiac Surgery: No Cholecystectomy: No Lung Surgery: No Neurologic Surgery: No Orthopedic Surgery: No - Suicide/Smoking/Psychosocial Hx Smoking History: Former smoker Have you smoked in the past 12 months: No Number of Cigarettes Smoked Daily: 20 (Never been seen by ENT) Information on smoking cessation initiated: No 'Breaking Loose' booklet given: 02/20/15 Hx Alcohol Use: No Drug/Substance Use Hx: No Substance Use Type: None Hx Substance Use Treatment: No *Physical Exam - Vital Signs Last Vital Signs Temp Pulse Resp BP Pulse Ox 97.8 F 77 19 131/94 99 05/10/18 13:50 05/10/18 13:50 05/10/18 13:50 05/10/18 13:50 05/10/18 13:50 ED Treatment Course - RADIOLOGY Radiology Studies Ordered: Category Date Time Status HEAD CT WITHOUT CONTRAST [CT] Stat CT Scan 05/10/18 14:13 Ordered Medical Decision Making - Medical Decision Making 05/10/18 14:28 A/P: 82-year-old male s/p fall with head trauma. No LOC or concussive symptoms. -CT brain r/o intracranial pathology -Tylenol for pain -Wound irrigation and facial laceration repair with dermabond (unable to suture with surrounding abrasion), surgicel and sterile dressing to elbow, sterile dressings to knee and hand abrasions -LLE u/s r/o DVT - per daughter, PCP evaluated today and sent labs including uric acid, does not wish to treat with abx pending these. Encouraged patient and daughter to start abx given strong suspicion for cellulitis, but they decline. 05/10/18 17:31 U/s neg for DVT. *DC/Admit/Observation/Transfer Diagnosis at time of Disposition: Fall Qualifiers: Encounter type: initial encounter Qualified Code(s): W19.XXXA - Unspecified fall, initial encounter Closed head injury Qualifiers: Encounter type: initial encounter Qualified Code(s): S09.90XA - Unspecified injury of head, initial encounter Facial laceration Qualifiers: Encounter type: initial encounter Qualified Code(s): S01.81XA - Laceration without foreign body of other part of head, initial encounter - Discharge Dispostion Disposition: HOME Condition at time of disposition: Stable Decision to Admit order: No - Referrals Referrals: Ranjit Ferro [Primary Care Provider] - - Patient Instructions Printed Discharge Instructions: DI for Closed Head Injury Additional Instructions: -Keep your wounds clean and dry -You may wash gently, pat dry, and apply bacitracin once daily -Discuss antibiotics for your left leg with Dr. Hall as you may have an infection there -Return for severe headaches, vomiting, altered mental status/change in behavior , or any other concerning symptoms - Post Discharge Activity
[2018-05-10] MEDS ORDERED: LIDOCAINE 1%/EPI 1:100000 (20 ML MULTI DOSE VIAL) ONE (14:27)
[2018-05-10] MEDS ORDERED: ACETAMINOPHEN 325 MG TABLET (FP) PO ONE (14:33)
[2018-05-10] MEDS ORDERED: ACETAMINOPHEN 325 MG TABLET (FP) ONE (14:36)
[2018-05-10] MEDS ORDERED: BACITRACIN 15 GM TUBE TOPICAL OINTMENT ONE (15:07)
== END 2018-05-10 17:44 | disposition home or self-care (01) ==
LOC: JERFT 13:28
PROC: 0HQ1XZZ Repair Face Skin, External Approach (ICD-10-PCS; principal; 2018-05-10)
DX: S09.8XXA Other specified injuries of head, initial encounter (principal); S01.81XA Laceration without foreign body of other part of head, initial encounter; V48.4XXA Person boarding or alighting a car injured in noncollision transport accident, initial encounter; Y92.480 Sidewalk as the place of occurrence of the external cause; Y93.89 Activity, other specified; Y99.8 Other external cause status; I10 Essential (primary) hypertension; I12.9 Hypertensive chronic kidney disease with stage 1 through stage 4 chronic kidney disease, or unspecified chronic kidney disease; N18.9 Chronic kidney disease, unspecified; E78.5 Hyperlipidemia, unspecified; F33.9 Major depressive disorder, recurrent, unspecified; Z79.82 Long term (current) use of aspirin
CPT/HCPCS: 12011; 70450-TC; 93971-TC; 99281-25

== ENCOUNTER 2018-05-16 04:28 | Emergency (ER) | payer OTHER ==
--- NOTE | 2018-05-16 04:36 | PDOC ---
History of Present Illness - General History Source: Patient Exam Limitations: No Limitations - History of Present Illness Initial Comments: 05/16/18 06:07 The patient is an 82-year-old male with a past medical history of MDD, HTN, HLD , DM, and CKD presents to the emergency department via EMS accompanied with family s/p a fall. The patient reports he suffered a fall leading to an injury to the L. brow. Denies LOC. The patient reports about a week ago, the patient had cataract procedure done to the L. eye, states since then hes been having difficulty seeing out of that eye. The patient states yesterday he got up to use the bathroom when he suffered a fall, states his legs gave out. The patient reports lately he hasnt been eating normally, the patient lived alone. The patient states he is cared for by a home health aide, who comes every other day and family continually checks in on the patient. Denies numbness, tingling or weakness. Denies vertigo or dizziness. Denies fever , chills, cough or a headache. Denies shortness of breath or chest pain. Denies abdominal pain, diarrhea, constipation, nausea or vomiting. Denies dysuria, hematuria, frequency or urgency to urinate. Denies neck pain or back pain. Denies any other complaints. Allergies: NKDA PCP: Ranjit Ferro <Princess Caballero - Last Filed: 05/16/18 06:07> <Miriam De Dios - Last Filed: 05/16/18 06:21> - General Stated Complaint: HEAD LAC S/P FALL Time Seen by Provider: 05/16/18 04:36 Past History <Princess Caballero - Last Filed: 05/16/18 06:07> - Past Medical History Anemia: No Asthma: No Cancer: No Cardiac Disorders: No CVA: No COPD: No CHF: No Dementia: No Diabetes: No GI Disorders: No Disorders: No HTN: Yes Hypercholesterolemia: Yes Liver Disease: No Seizures: No Thyroid Disease: No - Surgical History Abdominal Surgery: No Appendectomy: No Cardiac Surgery: No Cholecystectomy: No Lung Surgery: No Neurologic Surgery: No Orthopedic Surgery: No - Suicide/Smoking/Psychosocial Hx Smoking History: Former smoker Have you smoked in the past 12 months: No Number of Cigarettes Smoked Daily: 20 (Never been seen by ENT) 'Breaking Loose' booklet given: 02/20/15 Hx Alcohol Use: No Drug/Substance Use Hx: No Substance Use Type: None Hx Substance Use Treatment: No <Miriam De Dios - Last Filed: 05/16/18 06:21> - Past Medical History Allergies/Adverse Reactions: Allergies Allergy/AdvReac Type Severity Reaction Status Date / Time No Known Drug Allergies Allergy Verified 05/16/18 04:52 Home Medications: Ambulatory Orders Aspirin [Aspirin EC] 81 mg PO ASDIR 02/05/15 Bicalutamide 50 mg PO DAILY 02/05/17 Tamsulosin HCl [Flomax] 0.4 mg PO DAILY 10/08/17 Mirtazapine [Remeron -] 30 mg PO HS tablet 10/13/17 Cephalexin [Keflex] 500 mg PO TID #21 capsule 05/16/18 Colchicine [Colcrys] 0.6 mg PO ASDIR 05/16/18 Metoprolol Succinate [Toprol Xl -] mg PO DAILY 05/16/18 Review of Systems - Review of Systems Comments:: 05/16/18 06:08 GENERAL/CONSTITUTIONAL: No fever or chills. No weakness. HEAD, EYES, EARS, NOSE AND THROAT: (+) L. brow laceration. No change in vision. No ear pain or discharge. No sore throat. CARDIOVASCULAR: No chest pain or shortness of breath. RESPIRATORY: No cough, wheezing, or hemoptysis. GASTROINTESTINAL: No nausea, vomiting, diarrhea or constipation. GENITOURINARY: No dysuria, frequency, or change in urination. MUSCULOSKELETAL: No joint or muscle swelling or pain. No neck or back pain. SKIN: No rash NEUROLOGIC: No headache, vertigo, loss of consciousness, or change in strength/ sensation. ENDOCRINE: No increased thirst. No abnormal weight change. HEMATOLOGIC/LYMPHATIC: No anemia, easy bleeding, or history of blood clots. ALLERGIC/IMMUNOLOGIC: No hives or skin allergy. <Princess Caballero - Last Filed: 05/16/18 06:07> *Physical Exam - Vital Signs Last Vital Signs Temp Pulse Resp BP Pulse Ox 98.6 F 69 20 139/85 100 05/16/18 04:35 05/16/18 04:35 05/16/18 04:35 05/16/18 04:35 05/16/18 04:35 - Physical Exam Comments: 05/16/18 06:09 GENERAL: Awake, alert, and fully oriented x3, in no acute distress HEAD: No signs of trauma EYES: (+) Gaping laceration to the L. lateral brow. PERRLA, EOMI, sclera anicteric, conjunctiva clear ENT: Auricles normal inspection, hearing grossly normal, nares patent, oropharynx clear without exudates. Moist mucosa NECK: Normal ROM, supple, no lymphadenopathy, JVD, or masses LUNGS: Breath sounds equal, clear to auscultation bilaterally. No wheezes, and no crackles HEART: Regular rate and rhythm, normal S1 and S2, no murmurs, rubs or gallops ABDOMEN: Soft, nontender, normoactive bowel sounds. No guarding, no rebound. No masses EXTREMITIES: Normal range of motion, no edema. No clubbing or cyanosis. No cords, erythema, or tenderness NEUROLOGICAL: Cranial nerves II through XII grossly intact. Normal speech. SKIN: skin avulsion to the lateral L. upper arm. Warm, Dry, normal turgor. <Princess Caballero - Last Filed: 05/16/18 06:07> Procedures - Laceration/Wound Repair Left Face Wound Length: 2.6 to 5.0 cm Wound Explored: clean Wound's Depth, Shape: into muscle, contused tissue Irrigated w/ Saline: No Betadine Prep: Yes Anesthesia: 2% Lidocaine w/ Epi Amount of Anesthetic (ccs): 4 Wound Repaired With: Sutures Suture Size/Type: 6:0, nylon Number of Sutures: 8 Layer Closure: Yes Deep Layer Suture Size/Type: 3:0, gut Number of Deep Layer Sutures: 1 Sterile Dressing Applied: Yes <Miriam De Dios - Last Filed: 05/16/18 06:21> ED Treatment Course - Medications Given in the ED: ED Medications Discontinued Medications Generic Name Dose Route Start Last Admin Trade Name Freq PRN Reason Stop Dose Admin Cephalexin HCl 500 mg 05/16/18 04:38 05/16/18 05:00 Keflex - PO 05/16/18 04:39 500 mg ONCE ONE Administration Diphtheria/Tetanus/Acell Pertussis 0.5 ml 05/16/18 04:38 05/16/18 05:00 Adacel Adolescent/Adult - IM 05/16/18 04:39 0.5 ml .ONCE ONE Administration Lidocaine/Epinephrine 6 ml 05/16/18 04:37 05/16/18 05:00 Xylocaine 2%-Epi 1:100,000 INF 05/16/18 04:38 6 ml ONCE ONE Administration <Princess Caballero - Last Filed: 05/16/18 06:07> Medical Decision Making - Medical Decision Making 05/16/18 06:17 Patient Name: ALEE POLLACK THIS IS A PRELIMINARY REPORT FROM [facility] DATE OF SERVICE: 2018-05-16 05:43:03 IMAGES: [id number] EXAM: CT CERVICAL SPINE CT W/O CONTR HISTORY: Trauma COMPARISON: None. FINDINGS: Vertebral bodies appear normal with no fracture Vertebral bodies are normally aligned There are degenerative changes with intervertebral disc space narrowing at C5-C7 Airway is intact Soft Tissues are normal Pulmonary apices are normal IMPRESSION: Degenerative changes with no cervical spine fracture Individualized dose optimization techniques were used for this CT. THIS DOCUMENT HAS BEEN ELECTRONICALLY SIGNED Patient Name: ALEE POLLACK THIS IS A PRELIMINARY REPORT FROM [facility] DATE OF SERVICE: 2018-05-16 05:45:17 IMAGES: [id number] EXAM: CT HEAD CT WITHOUT CONTRAST HISTORY: Trauma COMPARISON: None. FINDINGS: Brain parenchyma is normal in attenuation with no mass or hematoma. There is no midline shift. Lott and white matter differentiation is normal. Ventricles are normal. Sulci and extra-axial CSF spaces are normal. Intracranial vascular structures are normal in attenuation. There is no calvarial fracture. Paranasal sinuses are normally aerated. IMPRESSION: Normal head <Miriam De Dios - Last Filed: 05/16/18 06:21> *DC/Admit/Observation/Transfer - Attestations Scribe Attestion: 05/16/18 06:09 Documentation prepared by Princess Caballero, acting as medical record transcriber for Miriam De Dios MD. <Princess Caballero - Last Filed: 05/16/18 06:07> - Discharge Dispostion Decision to Admit order: No <Miriam De Dios - Last Filed: 05/16/18 06:21> Diagnosis at time of Disposition: Closed head injury, Facial laceration, Fall - Discharge Dispostion Disposition: HOME Condition at time of disposition: Improved - Prescriptions Prescriptions: Cephalexin [Keflex] 500 mg PO TID #21 capsule - Referrals Referrals: Ranjit Ferro [Primary Care Provider] - - Patient Instructions Printed Discharge Instructions: DI for Laceration Repair, DI for Closed Head Injury Additional Instructions: REMOVE STITCHES IN 10 DAYS TAKE YOUR ANTIBIOTIC 3 TIMES a DAY with MEALS - Post Discharge Activity
[2018-05-16] MEDS ORDERED: LIDOCAINE 2%/EPINEPHRINE 1:100000 (50 ML MD VIAL) INF ONE (04:37)
[2018-05-16] MEDS ORDERED: DIPHTH,PERTUSS(ACELL),TET VAC 0.5 ML VIAL IM ONE (04:38)
[2018-05-16] MEDS ORDERED: CEPHALEXIN MONOHYDRATE 500 MG CAPSULE (UD) PO ONE (04:38)
[2018-05-16 04:44] VITALS: BMI 23.7
[2018-05-16] MEDS ORDERED: LIDOCAINE 1%/EPI 1:100000 (20 ML MULTI DOSE VIAL) ONE ×2 (04:53→04:57)
[2018-05-16] MEDS ORDERED: CEPHALEXIN MONOHYDRATE 500 MG CAPSULE (UD) ONE (04:57)
[2018-05-16 09:55] VITALS: BP 142/77; PULSE 77; TEMP 98
== END 2018-05-16 09:35 | disposition home or self-care (01) ==
LOC: JER 04:28
PROC: 0HQ1XZZ Repair Face Skin, External Approach (ICD-10-PCS; principal; 2018-05-16)
PROC: 3E0234Z Introduction of Serum, Toxoid and Vaccine into Muscle, Percutaneous Approach (ICD-10-PCS; 2018-05-16)
DX: S01.112A Laceration without foreign body of left eyelid and periocular area, initial encounter (principal); W18.39XA Other fall on same level, initial encounter; Y93.01 Activity, walking, marching and hiking; Y92.008 Other place in unspecified non-institutional (private) residence as the place of occurrence of the external cause; S09.90XA Unspecified injury of head, initial encounter; E78.5 Hyperlipidemia, unspecified; E11.22 Type 2 diabetes mellitus with diabetic chronic kidney disease; I12.9 Hypertensive chronic kidney disease with stage 1 through stage 4 chronic kidney disease, or unspecified chronic kidney disease; N18.9 Chronic kidney disease, unspecified; Z87.891 Personal history of nicotine dependence; F33.9 Major depressive disorder, recurrent, unspecified; Z79.82 Long term (current) use of aspirin
CPT/HCPCS: 70450-TC; 72125-TC; 99282-25